=== PATIENT | male | born 1965 | race Caucasian/White ===

== ENCOUNTER 2017-11-12 11:47 | Inpatient (IN) | payer MEDICAID ==
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
[2017-11-12 13:13] LABS: ABS Basophils 0 10^3/ul (0-0.2); ABS Eosinophils 0.2 10^3/ul (0-0.6); ABS Lymphocytes 1.9 10^3/ul (1.0-4.8); ABS Monocytes 0.6 10^3/ul (0-0.8); ABS Neutrophils 3.5 10^3/ul (1.5-7.7); ABS Nucleated RBC 0 10^3/ul; Eosinophil % 3.7 % (0-6); Hematocrit 48 % (42-52); Hemoglobin 15.9 g/dl (14.0-18.0); Lymphocyte % 30.4 % (25-47); Mean Corpuscular HGB Conc 33 g/dl (31-36); Mean Corpuscular Hemoglobin 29 pg (27-31); Mean Corpuscular Volume 87 fL (80-94); Mean Platelet Volume 8.3 um3 (7.4-10.4); Nucleated Red Blood Cells % 0.1; Platelet Count 196 10^3/ul (150-450); Red Blood Count 5.53 10^6/ul (4.00-5.40); Red Cell Distribution Width 14 % (10.5-15); White Blood Count 6.2 10^3/ul (3.5-10.8)
[2017-11-12] MEDS ORDERED: Naloxone* 0.4 MG/ML 1 ML VIAL ONE (13:20)
[2017-11-12] MEDS ORDERED: Piperacillin/Tazobac ADVAN(*) 3.375 GM in NS 0.9% 100 ML* 100 ML IVPB ONE (13:25)
[2017-11-12] MEDS ORDERED: Piperacillin/Tazobac (*) 3.375 GM BAG ONE (13:26)
[2017-11-12] MEDS ORDERED: NS 0.9% 1000 ML* 1,000 ML IV ONE ×2 (13:26)
[2017-11-12] MEDS ORDERED: Naloxone* 0.4 MG/ML 1 ML VIAL IV PUSH ONE ×2 (13:26→13:30)
[2017-11-12 13:30] LABS: EGFR Non-African American 81.3 (>60)
[2017-11-12] MEDS ORDERED: Naloxone* 0.4 MG/ML 10 ML VIAL ONE (13:32)
[2017-11-12] MEDS ORDERED: Etomidate* 2 MG/ML 20 ML VIAL (40 MG) ONE (13:58)
[2017-11-12] MEDS ORDERED: Succinylcholine* 20 MG/ML 10 ML VIAL ONE (13:59)
[2017-11-12] MEDS ORDERED: Succinylcholine* 20 MG/ML 10 ML VIAL IV ONE (14:00)
[2017-11-12] MEDS ORDERED: Etomidate* 2 MG/ML 10 ML VIAL IV ONE (14:00)
[2017-11-12] MEDS ORDERED: Dextrose 50% Syringe 50 ML* 25 GM/50 ML SYRINGE IV PUSH PRN (14:14)
[2017-11-12] MEDS ORDERED: Propofol* 1,000 MG/100 ML BTL ONE (14:20)
--- NOTE | 2017-11-12 14:20 | RAD ---
HISTORY: AMS COMPARISONS: None TECHNIQUE: Multiple contiguous axial CT scans were obtained of the head without intravenous contrast. FINDINGS: HEMORRHAGE/INFARCT: There is no hemorrhage or acute infarct. MASSES/SHIFT: There is no mass or shift. EXTRA-AXIAL SPACES: There are no extra-axial fluid collections. SULCI AND VENTRICLES: The sulci and ventricles are normal in size and position for the patient's stated age. CEREBRUM: There are no focal parenchymal abnormalities. BRAINSTEM: There are no focal parenchymal abnormalities. CEREBELLUM: There are no focal parenchymal abnormalities. VESSELS: The vessels are grossly normal. PARANASAL SINUSES: The paranasal sinuses are clear. ORBITS: The orbits are unremarkable. BONES AND SOFT TISSUE: No bone or soft tissue abnormalities are noted. OTHER: None IMPRESSION: NO ACUTE INTRACRANIAL PATHOLOGY.
--- NOTE | 2017-11-12 14:22 | RAD ---
HISTORY: AMS COMPARISONS: None TECHNIQUE: Multiple contiguous axial CT scans were obtained of the cervical spine without intravenous contrast, with coronal and sagittal multiplanar reformations. FINDINGS: Evaluation is limited secondary to patient motion artifact. This limits evaluation for fractures of the cervical spine specifically at C4. BRAIN: The visualized brain is unremarkable CENTRAL CANAL: Evaluation of the central canal is limited on CT technique; however, there is no obvious canalicular mass or epidural hemorrhage. ALIGNMENT: The alignment is normal, without subluxation or dislocation. VERTEBRAL BODIES: There is no obvious displaced fracture, though evaluation is limited by patient motion, particularly at C4 . JOINTS: There is osteoarthritis of the vertebral facet joints. MUSCULATURE: Unremarkable INTERVERTEBRAL DISCS: There is diffuse loss of intervertebral disc height. AXIAL IMAGES: Evaluation is limited by motion. There is no significant neural foraminal narrowing or central canal stenosis SOFT TISSUES: The visualized soft tissues of the neck are unremarkable. The prevertebral fat stripe is preserved. OTHER: None. IMPRESSION: WHILE THERE IS NO OBVIOUS ACUTE OSSEOUS INJURY TO THE CERVICAL SPINE, EVALUATION IS LIMITED DUE TO PATIENT MOTION ARTIFACT PARTICULARLY LIMITING EVALUATION OF C4.
[2017-11-12] MEDS ORDERED: Albuterol/Ipratropium NEB.SOL* Albuterol 2.5 MG/Ipratropium 0.5 MG 3 ML INH ONE (14:23)
[2017-11-12] MEDS ORDERED: methylPREDNISolone 125 MG* 2 ML VIAL IV ONE (14:23)
--- OUTSIDE RECORDS SUMMARY | 2017-11-12 14:26 | XMS REPORT | Continuity of Care Document ---
:1965 Author Organization [facility] Care Team Providers Name Role Phone RM VILLALOBOS Primary Care Physician Allergies and Intolerances Code Code Allergy Type Reaction Severity Start End Status System Substance Date Date 15170409 RXNorm Glucophage Drug GI upset Unknown Active intolerence (disorder) Medications RxNorm Medication Dose Route Instructions Start End Status Date Date 3 ML Insulin 40 unit Subcutaneous subcutaneously Active Glargine 100 every morning UNT/ML Pen Injector 4895606 3 ML Insulin, unit Subcutaneous subcutaneously 3 Active Aspart, Human times per day as 100 UNT/ML Pen needed. Injector 658258 3 ML liraglutide 1.2 mg Subcutaneous subcutaneously Active 6 MG/ML Pen every morning Injector 7613889 Albuterol 0.833 3 mL Inhalation inhaled 4 times Active MG/ML / per day as needed. Ipratropium [place] 0.167 MG/ML Inhalant Solution 19720404 Alprazolam 2 MG 2 mg oral orally 3 times per Active Oral Tablet day as needed. 19720802 ammonium lactate 1 applic Topical topically every Active 120 MG/ML day as needed. Topical Lotion 1191 Aspirin 81 mg oral orally every day Active at bedtime 224223 atorvastatin 80 80 mg oral orally every day Active MG Oral Tablet at bedtime Budesonide 2 inh Inhalation inhaled 2 times Active per day Bupropion (SR) 150 mg oral orally 2 times per Active Oral ER Tab day 197598 clopidogrel 75 75 mg oral orally every day Active MG Oral Tablet 712637 Docusate Sodium 1 tab oral orally 2 times per Active 50 MG / day sennosides, CUSTODIAL 8.6 MG Oral Tablet 4053 Erythromycin 125 mg oral orally 4 times per Active day 4603 Furosemide 60 mg oral orally every Active morning 481375 glucagon (rDNA) 1 mg Intramuscular intramuscularly Active 1 MG Injection once as needed. 773241 Metoprolol 50 mg oral orally 2 times per Active Tartrate 50 MG day Oral Tablet 19790306 Naproxen 500 MG 500 mg oral orally 2 times per Active Oral Tablet day as needed. 4917 Nitroglycerin 0.4 mg Sublingual sublingually every Active 5 minutes as needed. 9553988 Oxycodone 10 mg oral orally every 4 Active Hydrochloride 10 hours as needed. MG Oral Tablet 8591 Potassium 20 mEq oral orally every Active Chloride morning ProAir HFA 2 inh Inhalation inhaled every 4 Active Inhaler 90 hours as needed. mcg/actuation Ranitidine Oral 150 mg oral orally 2 times per Active day as needed. 6355934 rivaroxaban 20 20 mg oral orally every Active MG Oral Tablet evening 094146 sildenafil 50 MG 50 mg oral orally every day Active Oral Tablet as needed. Spiriva Respimat 2 inh Inhalation inhaled every Active Inhaler 2.5 morning mcg/actuation Venlafaxine Oral 225 mg oral orally every Active 24 hr Cap morning Problems Code Code System Problem Name Start Date End Date Status 973101560 SNOMED-CT Acute exacerbation of 10/17/2017 Active chronic obstructive airways disease 16238656 SNOMED-CT Ocdap-eb-irbtxuw 06/16/2017 Active respiratory failure 77890697 SNOMED-CT Chronic obstructive lung 03/05/2017 Active disease 872851035 SNOMED-CT Acute exacerbation of 02/21/2017 Active chronic obstructive airways disease 86268200863946936 SNOMED-CT Acute on chronic hypoxemic 02/21/2017 Active respiratory failure 212762293 SNOMED-CT Nicotine dependence with 02/21/2017 Active current use 76388165 SNOMED-CT Khsma-qt-pyknlpo 11/30/2016 Active respiratory failure 34507518 SNOMED-CT Vwqfo-hu-rdcxocu 11/18/2016 Active respiratory failure 315781906 SNOMED-CT Community acquired 12/11/2015 Active pneumonia 949011502 SNOMED-CT Acute exacerbation of 12/11/2015 Active chronic obstructive airways disease 454385502 SNOMED-CT Acute interstitial 12/11/2015 Active pneumonia 97665889 SNOMED-CT Hyponatremia 12/11/2015 Active 86729767 SNOMED-CT Elevated liver function 12/11/2015 Active 365231195 SNOMED-CT Poorly controlled type 2 12/11/2015 Active DM 657450271 SNOMED-CT Morbid obesity 12/11/2015 Active 119950577 SNOMED-CT Acute exacerbation of 12/05/2015 Active chronic obstructive airways disease 028197022 SNOMED-CT Poorly controlled type 2 12/05/2015 Active DM 73119508 SNOMED-CT Hyponatremia 12/05/2015 Active 537007087 SNOMED-CT Neutrophilia 12/05/2015 Active 573873284 SNOMED-CT Morbid obesity 12/05/2015 Active 075274172 SNOMED-CT Acute exacerbation of 11/24/2015 Active chronic obstructive airways disease 320154045 SNOMED-CT Poorly controlled type 2 11/24/2015 Active DM 50107246 SNOMED-CT Axxdn-oi-laghsnc 11/24/2015 Active respiratory failure 030860737 SNOMED-CT Morbid obesity 11/24/2015 Active 67744257 SNOMED-CT Elevated liver function 04/18/2015 U Active 476610541 SNOMED-CT Morbid obesity 04/17/2015 U Active 893958900 SNOMED-CT Poorly controlled type 2 04/17/2015 U Active DM 434597474 SNOMED-CT Acute exacerbation of 04/17/2015 U Active chronic obstructive airways disease 74146831 SNOMED-CT Khbtx-rq-ctalghf 04/17/2015 U Active respiratory failure 686193931 SNOMED-CT Good hypertension control 04/17/2015 U Active 316581358 SNOMED-CT Tobacco dependence, 04/17/2015 U Active continuous 592830168 SNOMED-CT Acute exacerbation of 04/06/2015 U Active chronic obstructive airways disease 13548968 SNOMED-CT Ulohs-il-gxwmzxp 03/11/2015 U Active respiratory failure 57326066 SNOMED-CT Nicotine dependence 2016 Active EEG: prolonged and sleep 2016 Active deprived EEG done in the awake and drowsy states was normal. Clear epileptiform activity was not seen. 446404223 SNOMED-CT Acute exacerbation of 09/18/2014 U Active chronic obstructive airways disease 814494910 SNOMED-CT Dependent edema 09/18/2014 U Active 205513429 SNOMED-CT Right heart failure 09/18/2014 U Active 50873498 SNOMED-CT Chronic cor pulmonale 09/18/2014 U Active 40818276 SNOMED-CT Hyponatremia with excess 09/18/2014 U Active extracellular fluid volume 48737485 SNOMED-CT Hypokalemia 09/18/2014 U Active 648706658 SNOMED-CT Cellulitis of leg 09/18/2014 U Active 801838377 SNOMED-CT Right heart failure due to 09/18/2014 U Active pulmonary hypertension 775069591 SNOMED-CT Morbid obesity 09/18/2014 U Active 450833684 SNOMED-CT Acute exacerbation of 08/17/2014 U Active chronic obstructive airways disease 25046599 SNOMED-CT Upper respiratory 08/17/2014 U Active infection 35634299 SNOMED-CT Acute bronchitis with 08/17/2014 U Active bronchospasm 275229202 SNOMED-CT Cellulitis of leg 08/17/2014 U Active 479948047 SNOMED-CT Diabetic foot ulcer 08/17/2014 U Active 006024027 SNOMED-CT Cellulitis in diabetic 08/17/2014 U Active foot 459978222 SNOMED-CT Type II diabetes mellitus 08/17/2014 U Active well controlled 415968044 SNOMED-CT Moderate hypertension 08/17/2014 U Active control 408655025 SNOMED-CT Acute purulent bronchitis 08/17/2014 U Active 757880263 SNOMED-CT Weight increased 08/17/2014 U Active 812098426 SNOMED-CT Poorly controlled type 2 06/21/2014 U Active DM 019116582 SNOMED-CT Acute exacerbation of 06/21/2014 U Active chronic obstructive airways disease 259458951 SNOMED-CT Acute interstitial 06/21/2014 U Active pneumonia 97812283 SNOMED-CT Systolic hypertension 06/21/2014 U Active 169872003 SNOMED-CT Poor hypertension control 06/21/2014 U Active 028829953 SNOMED-CT Morbid obesity 06/21/2014 U Active 49772168 SNOMED-CT Chronic cor pulmonale 06/21/2014 U Active 78842089 SNOMED-CT Alteration in fluid 06/21/2014 U Active volume: excess 788991761 SNOMED-CT Acute exacerbation of 02/23/2014 U Active chronic obstructive airways disease 113799792 SNOMED-CT Acute exacerbation of 02/12/2014 U Active chronic obstructive airways disease 374026238 SNOMED-CT Acute exacerbation of 02/01/2014 U Active chronic obstructive airways disease Excision of epidermal 2013 U Completed inclusion cyst of scrotum by Dr. Hennessy 24712649 SNOMED-CT Acute bronchitis 08/13/2012 Active 04:00 abcess 04/22/2012 Active 05:00 58870033 SNOMED-CT Congestive heart failure 2007 Active (disorder) 10038684 SNOMED-CT Myocardial infarction 2007 Active 09472418 SNOMED-CT Chronic obstructive lung 2007 Active disease ABD HERNIA U Active 267060800 SNOMED-CT Gastroesophageal reflux U Active disease 45664221 SNOMED-CT Hypercholesterolemia U Active 30886877 SNOMED-CT Hypertensive disorder U U Active 09165058 SNOMED-CT Chronic obstructive lung U U Active disease 329731758 SNOMED-CT Morbid obesity U U Active 08997123 SNOMED-CT Hyperlipidemia U U Active 54992759 SNOMED-CT Heart disease U Active 82097406 SNOMED-CT Hypertensive disorder U Active 20598856 SNOMED-CT Diabetes mellitus U Active 39691712 SNOMED-CT Gastrointestinal ulcer U Active 28061597 SNOMED-CT Kidney stone U Active 62593303 SNOMED-CT Sleep apnea U Active 9683485 SNOMED-CT Arthritis U Active 350320112 SNOMED-CT Diabetic peripheral U Active neuropathy 42924736 SNOMED-CT Diabetes mellitus type 2 U U Active 29248410 SNOMED-CT Generalized anxiety U U Active disorder 657916309 SNOMED-CT Acute exacerbation of U U Active chronic obstructive airways disease 51583978 SNOMED-CT Nicotine dependence U U Active 511142526 SNOMED-CT Diabetic neuropathy U U Active 56427459 SNOMED-CT Chronic respiratory U U Active failure 470506438 SNOMED-CT AST/SGOT level abnormal U U Active 530293612 SNOMED-CT ALT (SGPT) level raised U U Active 87135791 SNOMED-CT Depressive disorder U U Active 28757314 SNOMED-CT Bipolar disorder U U Active 702963132 SNOMED-CT Severe chronic obstructive U Active pulmonary disease 30765224 SNOMED-CT Nicotine dependence U Active 487587489 SNOMED-CT Patient noncompliance - U Active general (situation) Procedures Code Code System Procedure Date SNOMED CT Cholecystectomy [address] Cholecystectomy U Results Laboratory Results Order: Point of Care Glucose ACCUCHECK Specimen Source: Blood Body Site: Legend: (G,H)=High, (GG,HH,CH,#H)=Above High Threshold, (#,L)=Low, (##,CL,#L,LL)=Below Low Threshold, (C,CC,CA,#A,A)=Abnormal LOINC Test Result Flag Range Units Date 1GLUCOSE BedSide 588 CH 70-100 mg/dL 10/18/2017 08:26 Test Comment: [id number] SULAIMAN RHONDA Performing Lab Footnotes:[facility] - [id number] [place] [address] RM [id number] Order: ACETONE SERUM Specimen Source: Body Site: Legend: (G,H)=High, ( GG,HH,CH,#H)=Above High Threshold, (#,L)=Low, (##,CL,#L,LL)=Below Low Threshold , (C,CC,CA,#A,A)=Abnormal LOINC Test Result Flag Range Units Date 2513-0 1Ketones SerPl Ql NEGATIVE NEGATIVE 10/18/2017 05:50 Performing Lab Footnotes:[facility] - [id number] [place] [address] RM PEOPLESOMD1 Order: BASIC METABOLIC PANEL Specimen Source: Body Site: Legend: (G,H)= High, (GG,HH,CH,#H)=Above High Threshold, (#,L)=Low, (##,CL,#L,LL)=Below Low Threshold, (C,CC,CA,#A,A)=Abnormal LOINC Test Result Flag Range Units Date 2951-2 1Sodium SerPl-sCnc 135 L 136-145 mmol/L 10/18/2017 05:50 2823-3 1Potassium SerPl-sCnc 4.4 3.5-5.2 mmol/L 10/18/2017 05:50 5-0 1Chloride SerPl-sCnc 96 L 100-108 mmol/L 10/18/2017 05:50 8-9 1CO2 SerPl-sCnc 30 21-32 mmol/L 10/18/2017 05:50 2345-7 1Glucose SerPl-mCnc 387 H 70-100 mg/dL 10/18/2017 05:50 3094-0 1BUN SerPl-mCnc 21 7-21 mg/dL 10/18/2017 05:50 2160-0 1Creat SerPl-mCnc 1.0 0.6-1.3 mg/dL 10/18/2017 05:50 Interpretive Megan: 1Normal Kidney Function or Mild Disease - GFR >OR=60 Chronic Kidney Disease - GFR 15-59 Renal Failure - GFR < 15 GFR not calculated on patients under 18 years of age. Calculated (estimated) GFR is based on the MDRD Study equation, which assumes a steady state for creatinine. Estimated GFR may not be appropriate for medication dosing. 47056-8 1Ca-I SerPl-mCnc 9.7 8.5-10.8 mg/dL 10/18/2017 05:50 66960-0 1GFR/BSA.pred SerPl-ArVRat >60 10/18/2017 05:50 Performing Lab Footnotes:[facility] - [id number] - [address] [place] [address] RM Rdz MERCY Order: CBC Specimen Source: Body Site: Legend: (G,H)=High, (GG,HH,CH,#H )=Above High Threshold, (#,L)=Low, (##,CL,#L,LL)=Below Low Threshold, (C,CC,CA,# A,A)=Abnormal LOINC Test Result Flag Range Units Date 90-2 1WBC # Bld Auto 12.7 H 4.8-10.8 K/uL 10/18/2017 05:50 60523-9 1RBC # Bld 5.63 4.60-6.20 M/uL 10/18/2017 05:50 718-7 1Hgb Bld-mCnc 16.1 13.5-18.0 gm/dL 10/18/2017 05:50 4544-3 1Hct VFr Bld Auto 49.7 41.0-53.0 % 10/18/2017 05:50 787-2 1MCV RBC Auto 88.2 80.0-100.0 fL 10/18/2017 05:50 15065-0 1MCHC RBC-mCnc 32.3 30.0-36.5 % 10/18/2017 05:50 03177-0 1MCH RBC Qn 28.5 27.0-34.0 pg 10/18/2017 05:50 18159-3 1RDW RBC 11.8 11.0-15.0 % 10/18/2017 05:50 777-3 1Platelet # Bld Auto 212 130-450 K/uL 10/18/2017 05:50 22441-5 1PMV Bld Auto 7.9 6.0-12.0 fL 10/18/2017 05:50 Performing Lab Footnotes:[facility] - [id number] - [address] [place] [address] NOEKendell MADRID Order: CBC DIFF Specimen Source: Body Site: Legend: (G,H)=High, (GG,HH, CH,#H)=Above High Threshold, (#,L)=Low, (##,CL,#L,LL)=Below Low Threshold, (C,CC ,CA,#A,A)=Abnormal LOINC Test Result Flag Range Units Date 6690-2 1WBC # Bld Auto 12.7 H 4.8-10.8 K/uL 10/18/2017 05:50 46070-6 1RBC # Bld 5.63 4.60-6.20 M/uL 10/18/2017 05:50 718-7 1Hgb Bld-mCnc 16.1 13.5-18.0 gm/dL 10/18/2017 05:50 4544-3 1Hct VFr Bld Auto 49.7 41.0-53.0 % 10/18/2017 05:50 787-2 1MCV RBC Auto 88.2 80.0-100.0 fL 10/18/2017 05:50 00653-8 1MCHC RBC-mCnc 32.3 30.0-36.5 % 10/18/2017 05:50 62717-8 1MCH RBC Qn 28.5 27.0-34.0 pg 10/18/2017 05:50 58218-2 1RDW RBC 11.8 11.0-15.0 % 10/18/2017 05:50 777-3 1Platelet # Bld Auto 212 130-450 K/uL 10/18/2017 05:50 40330-9 1PMV Bld Auto 7.9 6.0-12.0 fL 10/18/2017 05:50 751-8 1Neutrophils # Bld Auto 89 H 37-80 % 10/18/2017 05:50 67913-6 1Lymphocytes NFr Bld 9 L 10-50 % 10/18/2017 05:50 5905-5 1Monocytes NFr Bld Auto 2 0-12 % 10/18/2017 05:50 61896-2 1Eosinophil # Bld 0 <=8 % 10/18/2017 05:50 704-7 1Basophils # Bld Auto 0 <=3 % 10/18/2017 05:50 81569-5 1Neutrophils # Bld 11.3 H 1.8-8.6 K/uL 10/18/2017 05:50 731-0 1Lymphocytes # Bld Auto 1.1 0.5-5.0 K/uL 10/18/2017 05:50 742-7 1Monocytes # Bld Auto 0.3 0.0-1.3 K/uL 10/18/2017 05:50 94389-3 1Eosinophil # Bld 0.0 0.0-0.9 K/uL 10/18/2017 05:50 704-7 1Basophils # Bld Auto 0.0 0.0-0.3 K/ul 10/18/2017 05:50 Performing Lab Footnotes:[facility] - [id number] - [address] [place] [address] RM BERNARDOD1 Order: COMPREHENSIVE PANEL Specimen Source: Body Site: Legend: (G,H)= High, (GG,HH,CH,#H)=Above High Threshold, (#,L)=Low, (##,CL,#L,LL)=Below Low Threshold, (C,CC,CA,#A,A)=Abnormal LOINC Test Result Flag Range Units Date 2951-2 1Sodium SerPl-sCnc 135 L 136-145 mmol/L 10/18/2017 05:50 2823-3 1Potassium SerPl-sCnc 4.4 3.5-5.2 mmol/L 10/18/2017 05:50 2075-0 1Chloride SerPl-sCnc 96 L 100-108 mmol/L 10/18/2017 05:50 8-9 1CO2 SerPl-sCnc 30 21-32 mmol/L 10/18/2017 05:50 2345-7 1Glucose SerPl-mCnc 387 H 70-100 mg/dL 10/18/2017 05:50 3094-0 1BUN SerPl-mCnc 21 7-21 mg/dL 10/18/2017 05:50 2160-0 1Creat SerPl-mCnc 1.0 0.6-1.3 mg/dL 10/18/2017 05:50 Interpretive Megan: 1Normal Kidney Function or Mild Disease - GFR >OR=60 Chronic Kidney Disease - GFR 15-59 Renal Failure - GFR < 15 GFR not calculated on patients under 18 years of age. Calculated (estimated) GFR is based on the MDRD Study equation, which assumes a steady state for creatinine. Estimated GFR may not be appropriate for medication dosing. 59558-0 1Ca-I SerPl-mCnc 9.7 8.5-10.8 mg/dL 10/18/2017 05:50 62744-1 1GFR/BSA.pred SerPl-ArVRat >60 10/18/2017 05:50 78231-4 1Bilirub Bld-mCnc 0.3 0.0-1.2 mg/dL 10/18/2017 05:50 2885-2 1Prot SerPl-mCnc 7.1 6.4-8.2 gm/dL 10/18/2017 05:50 1751-7 1Albumin SerPl-mCnc 3.9 3.4-4.8 gm/dL 10/18/2017 05:50 6768-6 1ALP SerPl-cCnc 98 40-150 U/L 10/18/2017 05:50 1742-6 1ALT SerPl-cCnc 118 H 0-55 U/L 10/18/2017 05:50 1920-8 1AST SerPl-cCnc 26 5-37 U/L 10/18/2017 05:50 Performing Lab Footnotes:[facility] - [id number] - [address] [place] [address] NOEKendell MADRID Order: PT/INR Specimen Source: Body Site: Legend: (G,H)=High, (GG,HH,CH ,#H)=Above High Threshold, (#,L)=Low, (##,CL,#L,LL)=Below Low Threshold, (C,CC, CA,#A,A)=Abnormal LOINC Test Result Flag Range Units Date 5901-04 1PT Time PPP 12.9 H 9.4-12.4 sec 10/18/2017 05:50 6301-6 1INR PPP 1.1 10/18/2017 05:50 Interpretive Megan: 1 INR INTERPERTATION 2.0-3.0 THERAPEUTIC MONITORING 2.5-3.5 HEART VALVE REPLACEMENT Performing Lab Footnotes:[facility] - [id number] - [address] [place] [address] RM BERNARDOD1 Order: Point of Care Glucose ACCUCHECK Specimen Source: Blood Body Site: Legend: (G,H)=High, (GG,HH,CH,#H)=Above High Threshold, (#,L)=Low, (##,CL, #L,LL)=Below Low Threshold, (C,CC,CA,#A,A)=Abnormal LOINC Test Result Flag Range Units Date 1GLUCOSE BedSide 410 CH 70-100 mg/dL 10/17/2017 20:08 Test Comment: [id number] KEVIN FRANCIS Test Comment: 1Cleaned Meter Performing Lab Footnotes:[facility] - [id number] - [address] [place] [address] RM MADRID Order: Point of Care Glucose ACCUCHECK Specimen Source: Blood Body Site: Legend: (G,H)=High, (GG,HH,CH,#H)=Above High Threshold, (#,L)=Low, (##,CL, #L,LL)=Below Low Threshold, (C,CC,CA,#A,A)=Abnormal LOINC Test Result Flag Range Units Date 1GLUCOSE BedSide 393 CH 70-100 mg/dL 10/17/2017 16:00 Test Comment: [id number] KEVIN PENNY Performing Lab Footnotes:[facility] - [id number] - [address] [place] [address] RM PEOPLESOMD1 Order: TROPONIN I Specimen Source: Body Site: Legend: (G,H)=High, (GG, HH,CH,#H)=Above High Threshold, (#,L)=Low, (##,CL,#L,LL)=Below Low Threshold, (C ,CC,CA,#A,A)=Abnormal LOINC Test Result Flag Range Units Date 39740-2 1Troponin I SerPl-mCnc 0.00 0.00-0.04 ng/mL 10/17/2017 13:40 Interpretive Megan: 1 TROPONIN INTERPRETATION 0.00 - 0.04 ng/ml Normal 0.05 - 0.29 ng/ml [place]rade Zone, Uncertain for AMI Greater than 0.30 ng/ml Suggestive of AMI Performing Lab Footnotes:[facility] - [id number] [place] [address] RM Rdz [id number] Order: Point of Care Glucose ACCUCHECK Specimen Source: Blood Body Site: Legend: (G,H)=High, (GG,HH,CH,#H)=Above High Threshold, (#,L)=Low, (##,CL, #L,LL)=Below Low Threshold, (C,CC,CA,#A,A)=Abnormal LOINC Test Result Flag Range Units Date 1GLUCOSE BedSide 510 CH 70-100 mg/dL 10/17/2017 13:29 Test Comment: [id number] ASHELY THOMAS Test Comment: 1Cleaned Meter Test Comment: 1RN Notified Performing Lab Footnotes:[facility] - [id number] - [address] [place] [address] RM [id number] Order: Point of Care Glucose ACCUCHECK Specimen Source: Blood Body Site: Legend: (G,H)=High, (GG,HH,CH,#H)=Above High Threshold, (#,L)=Low, (##,CL, #L,LL)=Below Low Threshold, (C,CC,CA,#A,A)=Abnormal LOINC Test Result Flag Range Units Date 1GLUCOSE BedSide 508 CH 70-100 mg/dL 10/17/2017 11:40 Test Comment: 1816 SULAIMAN ELLIS Performing Lab Footnotes:[facility] - [id number] - [address] [place] [address] RM [id number] Order: TROPONIN I Specimen Source: Body Site: Legend: (G,H)=High, (GG, HH,CH,#H)=Above High Threshold, (#,L)=Low, (##,CL,#L,LL)=Below Low Threshold, (C ,CC,CA,#A,A)=Abnormal LOINC Test Result Flag Range Units Date 58725-2 1Troponin I SerPl-mCnc 0.00 0.00-0.04 ng/mL 10/17/2017 08:35 Interpretive Megan: 1 TROPONIN INTERPRETATION 0.00 - 0.04 ng/ml Normal 0.05 - 0.29 ng/ml Andrade Zone, Uncertain for AMI Greater than 0.30 ng/ml Suggestive of AMI Performing Lab Footnotes:[facility] - [id number] - [address] [place] [address] RM MADRID Order: Point of Care Glucose ACCUCHECK Specimen Source: Blood Body Site: Legend: (G,H)=High, (GG,HH,CH,#H)=Above High Threshold, (#,L)=Low, (##,CL, #L,LL)=Below Low Threshold, (C,CC,CA,#A,A)=Abnormal LOINC Test Result Flag Range Units Date 1GLUCOSE BedSide 395 CH 70-100 mg/dL 10/17/2017 08:18 Test Comment: 1816 SULAIMAN ELLIS Test Comment: 1Cleaned Meter Test Comment: 1RN Notified Performing Lab Footnotes:[facility] - [id number] - [address] [place] [address] RM MADRID Order: Point of Care Glucose ACCUCHECK Specimen Source: Blood Body Site: Legend: (G,H)=High, (GG,HH,CH,#H)=Above High Threshold, (#,L)=Low, (##,CL, #L,LL)=Below Low Threshold, (C,CC,CA,#A,A)=Abnormal LOINC Test Result Flag Range Units Date 1GLUCOSE BedSide 294 H 70-100 mg/dL 10/17/2017 04:12 Test Comment: [id number] RICKEY SHEN Test Comment: 1Result Not Confirmed Performing Lab Footnotes:[facility] - [id number] [place] [address] RM MADRID Order: B-TYPE NATRIURETIC PEPTID Specimen Source: Body Site: Legend: (G ,H)=High, (GG,HH,CH,#H)=Above High Threshold, (#,L)=Low, (##,CL,#L,LL)=Below Low Threshold, (C,CC,CA,#A,A)=Abnormal LOINC Test Result Flag Range Units Date 51648-7 1BNP SerPl-mCnc 12 0-100 pg/mL 10/17/2017 02:30 Performing Lab Footnotes:[facility] - [id number] - [address] [place] [address] RM MADRID Order: CBC DIFF Specimen Source: Body Site: Legend: (G,H)=High, (GG,HH, CH,#H)=Above High Threshold, (#,L)=Low, (##,CL,#L,LL)=Below Low Threshold, (C,CC ,CA,#A,A)=Abnormal LOINC Test Result Flag Range Units Date 6690-2 1WBC # Bld Auto 7.1 4.8-10.8 K/uL 10/17/2017 02:30 91532-5 1RBC # Bld 5.70 4.60-6.20 M/uL 10/17/2017 02:30 718-7 1Hgb Bld-mCnc 16.9 13.5-18.0 gm/dL 10/17/2017 02:30 4544-3 1Hct VFr Bld Auto 50.3 41.0-53.0 % 10/17/2017 02:30 787-2 1MCV RBC Auto 88.3 80.0-100.0 fL 10/17/2017 02:30 27108-4 1MCHC RBC-mCnc 33.5 30.0-36.5 % 10/17/2017 02:30 28332-9 1MCH RBC Qn 29.6 27.0-34.0 pg 10/17/2017 02:30 68287-4 1RDW RBC 11.9 11.0-15.0 % 10/17/2017 02:30 777-3 1Platelet # Bld Auto 196 130-450 K/uL 10/17/2017 02:30 78565-0 1PMV Bld Auto 7.7 6.0-12.0 fL 10/17/2017 02:30 751-8 1Neutrophils # Bld Auto 56 37-80 % 10/17/2017 02:30 75996-9 1Lymphocytes NFr Bld 32 10-50 % 10/17/2017 02:30 5905-5 1Monocytes NFr Bld Auto 8 0-12 % 10/17/2017 02:30 57116-4 1Eosinophil # Bld 2 <=8 % 10/17/2017 02:30 704-7 1Basophils # Bld Auto 1 <=3 % 10/17/2017 02:30 85080-8 1Neutrophils # Bld 4.0 1.8-8.6 K/uL 10/17/2017 02:30 731-0 1Lymphocytes # Bld Auto 2.3 0.5-5.0 K/uL 10/17/2017 02:30 742-7 1Monocytes # Bld Auto 0.6 0.0-1.3 K/uL 10/17/2017 02:30 00588-9 1Eosinophil # Bld 0.1 0.0-0.9 K/uL 10/17/2017 02:30 704-7 1Basophils # Bld Auto 0.1 0.0-0.3 K/ul 10/17/2017 02:30 Performing Lab Footnotes:[facility] - [id number] [place] [address] RM MADRID Order: CK Specimen Source: Body Site: Legend: (G,H)=High, (GG,HH,CH,#H) =Above High Threshold, (#,L)=Low, (##,CL,#L,LL)=Below Low Threshold, (C,CC,CA,#A ,A)=Abnormal LOINC Test Result Flag Range Units Date 2156-08 1CK [facility] 129 21-232 U/L 10/17/2017 02:30 Performing Lab Footnotes:[facility] - [id number] - [address] [place] [address] RM MADRID Order: COMPREHENSIVE PANEL Specimen Source: Body Site: Legend: (G,H)= High, (GG,HH,CH,#H)=Above High Threshold, (#,L)=Low, (##,CL,#L,LL)=Below Low Threshold, (C,CC,CA,#A,A)=Abnormal LOINC Test Result Flag Range Units Date 2951-2 1Sodium SerPl-sCnc 140 136-145 mmol/L 10/17/2017 02:30 2823-3 1Potassium SerPl-sCnc 4.0 3.5-5.2 mmol/L 10/17/2017 02:30 2075-0 1Chloride SerPl-sCnc 98 L 100-108 mmol/L 10/17/2017 02:30 8-9 1CO2 SerPl-sCnc 31 21-32 mmol/L 10/17/2017 02:30 2345-7 1Glucose SerPl-mCnc 311 H 70-100 mg/dL 10/17/2017 02:30 3094-0 1BUN SerPl-mCnc 9 7-21 mg/dL 10/17/2017 02:30 2160-0 1Creat SerPl-mCnc 0.9 0.6-1.3 mg/dL 10/17/2017 02:30 Interpretive Megan: 1Normal Kidney Function or Mild Disease - GFR >OR=60 Chronic Kidney Disease - GFR 15-59 Renal Failure - GFR < 15 GFR not calculated on patients under 18 years of age. Calculated (estimated) GFR is based on the MDRD Study equation, which assumes a steady state for creatinine. Estimated GFR may not be appropriate for medication dosing. 18114-1 1Ca-I SerPl-mCnc 9.8 8.5-10.8 mg/dL 10/17/2017 02:30 14670-8 1GFR/BSA.pred SerPl-ArVRat >60 10/17/2017 02:30 64856-7 1Bilirub Bld-mCnc 0.4 0.0-1.2 mg/dL 10/17/2017 02:30 2885-2 1Prot SerPl-mCnc 7.7 6.4-8.2 gm/dL 10/17/2017 02:30 1751-7 1Albumin SerPl-mCnc 4.3 3.4-4.8 gm/dL 10/17/2017 02:30 6768-6 1ALP SerPl-cCnc 108 40-150 U/L 10/17/2017 02:30 1742-6 1ALT SerPl-cCnc 162 H 0-55 U/L 10/17/2017 02:30 1920-8 1AST SerPl-cCnc 59 H 5-37 U/L 10/17/2017 02:30 Performing Lab Footnotes:[facility] - [id number] - [address] [place] [address] RM MADRID Order: PT/INR Specimen Source: Body Site: Legend: (G,H)=High, (GG,HH,CH ,#H)=Above High Threshold, (#,L)=Low, (##,CL,#L,LL)=Below Low Threshold, (C,CC, CA,#A,A)=Abnormal LOINC Test Result Flag Range Units Date 5901-04 1PT Time PPP 11.2 9.4-12.4 sec 10/17/2017 02:30 6301-6 1INR PPP 1.0 10/17/2017 02:30 Interpretive Megan: 1 INR INTERPERTATION 2.0-3.0 THERAPEUTIC MONITORING 2.5-3.5 HEART VALVE REPLACEMENT Performing Lab Footnotes:[facility] - [id number] - [address] [place] [id number] [address] [id number] Order: TROPONIN I Specimen Source: Body Site: Legend: (G,H)=High, (GG, HH,CH,#H)=Above High Threshold, (#,L)=Low, (##,CL,#L,LL)=Below Low Threshold, (C ,CC,CA,#A,A)=Abnormal LOINC Test Result Flag Range Units Date 41996-8 1Troponin I SerPl-mCnc 0.00 0.00-0.04 ng/mL 10/17/2017 02:30 Interpretive Megan: 1 TROPONIN INTERPRETATION 0.00 - 0.04 ng/ml Normal 0.05 - 0.29 ng/ml Andrade Zone, Uncertain for AMI Greater than 0.30 ng/ml Suggestive of AMI Performing Lab Footnotes:[facility] - [id number] - [address] [place] [address] RM [id number] Order: Point of Care Glucose ACCUCHECK Specimen Source: Blood Body Site: Legend: (G,H)=High, (GG,HH,CH,#H)=Above High Threshold, (#,L)=Low, (##,CL, #L,LL)=Below Low Threshold, (C,CC,CA,#A,A)=Abnormal LOINC Test Result Flag Range Units Date 1GLUCOSE BedSide 284 H 70-100 mg/dL 10/17/2017 01:40 Test Comment: [id number] LYNDA BRANDT Test Comment: 1Cleaned Meter Test Comment: 1RN Notified Performing Lab Footnotes:[facility] - [id number] - [address] [place] [address] RM [id number] Radiology Results Order: CHEST PORTABLE-SINGLEExam Completion Date:10/17/2017 01: 1:53 AM CHEST PORTABLE-SINGLE ORDERING CLINICAL INFORMATION: -- SHORTNESS OF BREATH provided from eRecord without change. ADDITIONAL CLINICAL INFORMATION OBTAINED FROM EMR: None. COMPARISON: 10/15/2017 FINDINGS: Tubes and Catheters: None. Central Airways: Normal. Lungs: Normal. Pleura/Pleural space: Normal. Heart and Mediastinum: Normal. Bones and soft tissues:No acute or aggressive changes noted. IMPRESSION: No acute cardiopulmonary disease. END REPORT Electronically signed By: Flaquito Garcia M.D. Read By: FLAQUITO GARCIA Date: 10/17/2017 06:23 Social History Code Code System Social History Description Dates Observed Observation 164621721 SNOMED CT Current Smoking Current every day Status smoker M AdministrativeGender Sex Assigned At Male Vital Signs Code Code System Vitals Value Date 8310-5 LOINC Body Temperature 98 [degF] 10/18/2017 8865-8 LOINC Pulse Rate 69 {beats}/min 10/18/2017 9279-1 LOINC Respiratory Rate 22 /min 10/18/2017 75102-1 LOINC O2% BldC Oximetry 92 % 10/18/2017 8480-6 LOINC BP Systolic 132 mm[Hg] 10/18/2017 8462-4 LOINC BP Diastolic 68 mm[Hg] 10/18/2017 8302-2 LOINC Height 74 [in_i] 10/17/2017 08307-5 LOINC Weight 163.29 kg 10/17/2017 3140-1 LOINC Body surface area Derived from formula 2.79 m2 10/17/2017 47877-2 LOINC BMI (Body Mass Index) 46.6 kg/m2 10/17/2017 Goals Section No data in the system Health Concerns No data in the systemEncounter Diagnosis Date Code Code System Diagnosis Status 845029854 SNOMED-CT COPD WITH ACUTE EXACERBATION Active Advance Directives HEALTH CARE PROXY Directive Type Effective Date Drafting Engineer Notes Supporting Document Name Address Phone No Directive 10/17/2017 Not Not Not mojgan wardrup No Type 6:30:00 AM Specified Specified Specified (sister)[phone] specified DO NOT RESUSCITATE Directive Type Effective Date Drafting Engineer Notes Supporting Document Name Address Phone No Directive Type 10/17/2017 6:30:00 Not Specified Not Specified Not Specified None Yes specified AM DO NOT INTUBATE Directive Type Effective Date Drafting Engineer Notes Supporting Document Name Address Phone No Directive Type 10/17/2017 6:30:00 Not Specified Not Specified Not Specified None Yes specified AM *RHIO - CONSENT IS YES Directive Type Effective Date Drafting Engineer Notes Supporting Document Name Address Phone No Directive Type 08/17/2016 5:00:00 Not Specified Not Specified Not Specified None Yes specified AM Family History Relationship: Father Health Problem Age At Onset Notes Acute CHF (Acute congestive heart failure) 81 Years Relationship: Mother Health Problem Age At Onset Notes COPD (Chronic obstructive lung disease) (Chronic obstructive lung 70 Years disease) Diabetes (Diabetes mellitus) (Diabetes mellitus) 70 Years Heart disease 70 Years Functional Status Code Functional Condition Code System Date Status Independent adls SNOMED CT 10/17/2017 Active Appears well nourished/hydrated SNOMED CT 10/17/2017 Active Self care SNOMED CT 10/17/[address] 10/17/[address] 10/18/2017 Active Needs further teaching SNOMED CT 10/18/2017 Active Verbalizes understanding SNOMED CT 10/18/2017 Active 3 - encourage and assist as needed in SNOMED CT 10/17/2017 Active repositioning 4 - manage pain and encourage activity as SNOMED CT 10/18/2017 Active tolerated Needs assistance SNOMED CT 10/18/[address] feed SNOMED CT 10/18/2017 Active Assist with set up SNOMED CT 10/18/[address] 10/18/2017 Active 597008166 Able to wash self SNOMED CT 10/18/2017 Active 257270488 Difficulty washing self SNOMED CT 10/18/2017 Active Immunizations Vaccine Code Code System Vaccine Name Date Status 109 CVX pneumococcal vaccine, NOS Completed FLU SHOT 11/01/2014 Completed 150 CVX Influenza, injectable, 12/14/2015 Not given (patient quadrivalent, preservative objection) free 33 CVX pneumococcal polysaccharide 11/19/2016 Not given (Parental vaccine Objection) 150 CVX Influenza, injectable, 11/19/2016 Not given (patient quadrivalent, preservative objection) free INFLUENZA VACC QUAD 2017-18 04/27/2017 Not given (Medication (3YO+) Discontinued) Medical Equipment No data in the system Mental Status Code Cognitive Condition Code System Date Status Oriented x [address] 10/17/2017 Active Mild distress SNOMED CT 10/17/[address] 10/17/[address] 10/17/[address] 10/18/2017 Active 689159123 Orientated SNOMED CT 10/18/2017 Active 597142241 Mentally alert SNOMED CT 10/18/2017 Active 126070726 Oriented to time SNOMED CT 10/18/2017 Active 381620339 Oriented to time (finding) SNOMED CT 10/18/2017 [address] to [address] SNOMED CT 10/18/2017 Active [address] Oriented to place (finding) SNOMED CT 10/18/2017 Active 665511047 [facility] Active Assessment and Plan Assessments Problem Assessment Acute exacerbation of chronic obstructive airways disease Nicotine dependence Patient noncompliance - general (situation) Plan Of Treatment No data in the systemPending Tests Test Start Date Point of Care URINE DIPSTICK 10/17/2017 Hospital Discharge Instructions No data in the system Reason for Visit Reason for Visit COPD
--- OUTSIDE RECORDS SUMMARY | 2017-11-12 14:26 | XMS REPORT | Continuity of Care Document ---
:1965 Author Organization [facility] Care Team Providers Name Role Phone RM VILLALOBOS Primary Care Physician Allergies and Intolerances Code Code Allergy Type Reaction Severity Start End Status System Substance Date Date 15170409 RXNorm Glucophage Drug GI upset Unknown Active intolerence (disorder) Medications RxNorm Medication Dose Route Instructions Start End Status Date Date 3 ML Insulin 40 unit Subcutaneous subcutaneously Active Glargine 100 every morning UNT/ML Pen Injector 7609216 3 ML Insulin, unit Subcutaneous subcutaneously 3 Active Aspart, Human times per day as 100 UNT/ML Pen needed. Injector 631508 3 ML liraglutide 1.2 mg Subcutaneous subcutaneously Active 6 MG/ML Pen every morning Injector 1555780 Albuterol 0.833 3 mL Inhalation inhaled 4 times Active MG/ML / per day as needed. Ipratropium Lyman 0.167 MG/ML Inhalant Solution 19720404 Alprazolam 2 MG 2 mg oral orally 3 times per Active Oral Tablet day as needed. 19720802 ammonium lactate 1 applic Topical topically every Active 120 MG/ML day as needed. Topical Lotion 1191 Aspirin 81 mg oral orally every day Active at bedtime 470066 atorvastatin 80 80 mg oral orally every day Active MG Oral Tablet at bedtime Budesonide 2 inh Inhalation inhaled 2 times Active per day Bupropion (SR) 150 mg oral orally 2 times per Active Oral ER Tab day 958264 clopidogrel 75 75 mg oral orally every day Active MG Oral Tablet 966624 Docusate Sodium 1 tab oral orally 2 times per Active 50 MG / day sennosides, LONG TERM 8.6 MG Oral Tablet 4053 Erythromycin 125 mg oral orally 4 times per Active day 4603 Furosemide 60 mg oral orally every Active morning 433107 glucagon (rDNA) 1 mg Intramuscular intramuscularly Active 1 MG Injection once as needed. 641635 Metoprolol 50 mg oral orally 2 times per Active Tartrate 50 MG day Oral Tablet 19790306 Naproxen 500 MG 500 mg oral orally 2 times per Active Oral Tablet day as needed. 4917 Nitroglycerin 0.4 mg Sublingual sublingually every Active 5 minutes as needed. 9775973 Oxycodone 10 mg oral orally every 4 Active Hydrochloride 10 hours as needed. MG Oral Tablet 8591 Potassium 20 mEq oral orally every Active Chloride morning ProAir HFA 2 inh Inhalation inhaled every 4 Active Inhaler 90 hours as needed. mcg/actuation Ranitidine Oral 150 mg oral orally 2 times per Active day as needed. 8716430 rivaroxaban 20 20 mg oral orally every Active MG Oral Tablet evening 525779 sildenafil 50 MG 50 mg oral orally every day Active Oral Tablet as needed. Spiriva Respimat 2 inh Inhalation inhaled every Active Inhaler 2.5 morning mcg/actuation Venlafaxine Oral 225 mg oral orally every Active 24 hr Cap morning Problems Code Code System Problem Name Start Date End Date Status 028833054 SNOMED-CT Acute exacerbation of 10/17/2017 Active chronic obstructive airways disease 68334111 SNOMED-CT Dzzqk-dj-wvxljcl 06/16/2017 Active respiratory failure 37084332 SNOMED-CT Chronic obstructive lung 03/05/2017 Active disease 942313815 SNOMED-CT Acute exacerbation of 02/21/2017 Active chronic obstructive airways disease 55997289241945453 SNOMED-CT Acute on chronic hypoxemic 02/21/2017 Active respiratory failure 133191258 SNOMED-CT Nicotine dependence with 02/21/2017 Active current use 91901879 SNOMED-CT Botdm-nw-jjvpsok 11/30/2016 Active respiratory failure 89668274 SNOMED-CT [place]uf[place]-ck-fmqdljt 11/18/2016 Active respiratory failure 305742405 SNOMED-CT Community acquired 12/11/2015 Active pneumonia 239532571 SNOMED-CT Acute exacerbation of 12/11/2015 Active chronic obstructive airways disease 605807902 SNOMED-CT Acute interstitial 12/11/2015 Active pneumonia 93530989 SNOMED-CT Hyponatremia 12/11/2015 Active 97806869 SNOMED-CT Elevated liver function 12/11/2015 Active 337317770 SNOMED-CT Poorly controlled type 2 12/11/2015 Active DM 071905216 SNOMED-CT Morbid obesity 12/11/2015 Active 634111476 SNOMED-CT Acute exacerbation of 12/05/2015 Active chronic obstructive airways disease 981886088 SNOMED-CT Poorly controlled type 2 12/05/2015 Active DM 58942441 SNOMED-CT Hyponatremia 12/05/2015 Active 917057176 SNOMED-CT Neutrophilia 12/05/2015 Active 837291673 SNOMED-CT Morbid obesity 12/05/2015 Active 816130907 SNOMED-CT Acute exacerbation of 11/24/2015 Active chronic obstructive airways disease 000775759 SNOMED-CT Poorly controlled type 2 11/24/2015 Active DM 63938179 SNOMED-CT Klehp-ch-ygqiaqt 11/24/2015 Active respiratory failure 821410633 SNOMED-CT Morbid obesity 11/24/2015 Active 37493243 SNOMED-CT Elevated liver function 04/18/2015 U Active 952234939 SNOMED-CT Morbid obesity 04/17/2015 U Active 995047765 SNOMED-CT Poorly controlled type 2 04/17/2015 U Active DM 497353945 SNOMED-CT Acute exacerbation of 04/17/2015 U Active chronic obstructive airways disease 23125356 SNOMED-CT Odmnu-by-ydzbrga 04/17/2015 U Active respiratory failure 473253464 SNOMED-CT Good hypertension control 04/17/2015 U Active 663766666 SNOMED-CT Tobacco dependence, 04/17/2015 U Active continuous 738639669 SNOMED-CT Acute exacerbation of 04/06/2015 U Active chronic obstructive airways disease 38546627 SNOMED-CT Rgjkw-zw-flawtvy 03/11/2015 U Active respiratory failure 33696304 SNOMED-CT Nicotine dependence 2016 Active EEG: prolonged and sleep 2016 Active deprived EEG done in the awake and drowsy states was normal. Clear epileptiform activity was not seen. 758959130 SNOMED-CT Acute exacerbation of 09/18/2014 U Active chronic obstructive airways disease 546666463 SNOMED-CT Dependent edema 09/18/2014 U Active 804742898 SNOMED-CT Right heart failure 09/18/2014 U Active 41938992 SNOMED-CT Chronic cor pulmonale 09/18/2014 U Active 55817211 SNOMED-CT Hyponatremia with excess 09/18/2014 U Active extracellular fluid volume 14910764 SNOMED-CT Hypokalemia 09/18/2014 U Active 914308046 SNOMED-CT Cellulitis of leg 09/18/2014 U Active 049907135 SNOMED-CT Right heart failure due to 09/18/2014 U Active pulmonary hypertension 820935832 SNOMED-CT Morbid obesity 09/18/2014 U Active 747170711 SNOMED-CT Acute exacerbation of 08/17/2014 U Active chronic obstructive airways disease 10255967 SNOMED-CT Upper respiratory 08/17/2014 U Active infection 19247279 SNOMED-CT Acute bronchitis with 08/17/2014 U Active bronchospasm 720526316 SNOMED-CT Cellulitis of leg 08/17/2014 U Active 025961013 SNOMED-CT Diabetic foot ulcer 08/17/2014 U Active 361794527 SNOMED-CT Cellulitis in diabetic 08/17/2014 U Active foot 026838375 SNOMED-CT Type II diabetes mellitus 08/17/2014 U Active well controlled 398379683 SNOMED-CT Moderate hypertension 08/17/2014 U Active control 992763984 SNOMED-CT Acute purulent bronchitis 08/17/2014 U Active 394667422 SNOMED-CT Weight increased 08/17/2014 U Active 118050739 SNOMED-CT Poorly controlled type 2 06/21/2014 U Active DM 714521846 SNOMED-CT Acute exacerbation of 06/21/2014 U Active chronic obstructive airways disease 973655866 SNOMED-CT Acute interstitial 06/21/2014 U Active pneumonia 67908228 SNOMED-CT Systolic hypertension 06/21/2014 U Active 131379574 SNOMED-CT Poor hypertension control 06/21/2014 U Active 408966984 SNOMED-CT Morbid obesity 06/21/2014 U Active 90731272 SNOMED-CT Chronic cor pulmonale 06/21/2014 U Active 66732271 SNOMED-CT Alteration in fluid 06/21/2014 U Active volume: excess 509055548 SNOMED-CT Acute exacerbation of 02/23/2014 U Active chronic obstructive airways disease 565501175 SNOMED-CT Acute exacerbation of 02/12/2014 U Active chronic obstructive airways disease 804808499 SNOMED-CT Acute exacerbation of 02/01/2014 U Active chronic obstructive airways disease Excision of epidermal 2013 U Completed inclusion cyst of scrotum by Dr. Hennessy 10441364 SNOMED-CT Acute bronchitis 08/13/2012 Active 04:00 abcess 04/22/2012 Active 05:00 95313720 SNOMED-CT Congestive heart failure 2007 Active (disorder) 91421614 SNOMED-CT Myocardial infarction 2007 Active 00929766 SNOMED-CT Chronic obstructive lung 2007 Active disease ABD HERNIA U Active 172056641 SNOMED-CT Gastroesophageal reflux U Active disease 90092642 SNOMED-CT Hypercholesterolemia U Active 06090589 SNOMED-CT Hypertensive disorder U U Active 68342824 SNOMED-CT Chronic obstructive lung U U Active disease 667749488 SNOMED-CT Morbid obesity U U Active 85902426 SNOMED-CT Hyperlipidemia U U Active 76570834 SNOMED-CT Heart disease U Active 45123776 SNOMED-CT Hypertensive disorder U Active 90803083 SNOMED-CT Diabetes mellitus U Active 13166116 SNOMED-CT Gastrointestinal ulcer U Active 86102503 SNOMED-CT Kidney stone U Active 83456879 SNOMED-CT Sleep apnea U Active 3457185 SNOMED-CT Arthritis U Active 125365877 SNOMED-CT Diabetic peripheral U Active neuropathy 82992892 SNOMED-CT Diabetes mellitus type 2 U U Active 09852258 SNOMED-CT Generalized anxiety U U Active disorder 997727112 SNOMED-CT Acute exacerbation of U U Active chronic obstructive airways disease 28457145 SNOMED-CT Nicotine dependence U U Active 679542280 SNOMED-CT Diabetic neuropathy U U Active 94616779 SNOMED-CT Chronic respiratory U U Active failure 746799554 SNOMED-CT AST/SGOT level abnormal U U Active 877345795 SNOMED-CT ALT (SGPT) level raised U U Active 36169236 SNOMED-CT Depressive disorder U U Active 83381003 SNOMED-CT Bipolar disorder U U Active 883757372 SNOMED-CT Severe chronic obstructive U Active pulmonary disease 39675519 SNOMED-CT Nicotine dependence U Active 260921111 SNOMED-CT Patient noncompliance - U Active general (situation) Procedures Code Code System Procedure Date SNOMED CT Cholecystectomy [address] Cholecystectomy U Results Laboratory Results Order: B-TYPE NATRIURETIC PEPTID Specimen Source: Body Site: Legend: (G,H)=High, (GG,HH,CH,#H)=Above High Threshold, (#,L) =Low, (##,CL,#L,LL)=Below Low Threshold, (C,CC,CA,#A,A)=Abnormal LOINC Test Result Flag Range Units Date 1BNP SerPl-mCnc 21 0-100 pg/mL 10/15/2017 22:15 Performing Lab Footnotes:[facility] - [id number] - [address] [place] [address] RM MADRID Order: CBC DIFF Specimen Source: Body Site: Legend: (G,H)=High, (GG,HH, CH,#H)=Above High Threshold, (#,L)=Low, (##,CL,#L,LL)=Below Low Threshold, (C,CC ,CA,#A,A)=Abnormal LOINC Test Result Flag Range Units Date 6690-2 1WBC # Bld Auto 7.3 4.8-10.8 K/uL 10/15/2017 22:15 64470-1 1RBC # Bld 5.95 4.60-6.20 M/uL 10/15/2017 22:15 718-7 1Hgb Bld-mCnc 17.3 13.5-18.0 gm/dL 10/15/2017 22:15 4544-3 1Hct VFr Bld Auto 52.7 41.0-53.0 % 10/15/2017 22:15 787-2 1MCV RBC Auto 88.6 80.0-100.0 fL 10/15/2017 22:15 94141-7 1MCHC RBC-mCnc 32.8 30.0-36.5 % 10/15/2017 22:15 69326-2 1MCH RBC Qn 29.1 27.0-34.0 pg 10/15/2017 22:15 59170-6 1RDW RBC 12.0 11.0-15.0 % 10/15/2017 22:15 777-3 1Platelet # Bld Auto 204 130-450 K/uL 10/15/2017 22:15 11775-3 1PMV Bld Auto 7.6 6.0-12.0 fL 10/15/2017 22:15 751-8 1Neutrophils # Bld Auto 62 37-80 % 10/15/2017 22:15 63171-0 1Lymphocytes NFr Bld 28 10-50 % 10/15/2017 22:15 5905-5 1Monocytes NFr Bld Auto 8 0-12 % 10/15/2017 22:15 80650-2 1Eosinophil # Bld 2 <=8 % 10/15/2017 22:15 704-7 1Basophils # Bld Auto 0 <=3 % 10/15/2017 22:15 79848-1 1Neutrophils # Bld 4.6 1.8-8.6 K/uL 10/15/2017 22:15 731-0 1Lymphocytes # Bld Auto 2.0 0.5-5.0 K/uL 10/15/2017 22:15 742-7 1Monocytes # Bld Auto 0.6 0.0-1.3 K/uL 10/15/2017 22:15 70700-0 1Eosinophil # Bld 0.1 0.0-0.9 K/uL 10/15/2017 22:15 704-7 1Basophils # Bld Auto 0.0 0.0-0.3 K/ul 10/15/2017 22:15 Performing Lab Footnotes:[facility] - [id number] - [address] [place] [address] RM Rdz [id number] Order: CK Specimen Source: Body Site: Legend: (G,H)=High, (GG,HH,CH,#H) =Above High Threshold, (#,L)=Low, (##,CL,#L,LL)=Below Low Threshold, (C,CC,CA,#A ,A)=Abnormal LOINC Test Result Flag Range Units Date 2157-6 1CK SerPl-cCnc 112 21-232 U/L 10/15/2017 22:15 Performing Lab Footnotes:[facility] - [id number] - [address] [place] [address] RM [id number] Order: COMPREHENSIVE PANEL Specimen Source: Body Site: Legend: (G,H)= High, (GG,HH,CH,#H)=Above High Threshold, (#,L)=Low, (##,CL,#L,LL)=Below Low Threshold, (C,CC,CA,#A,A)=Abnormal LOINC Test Result Flag Range Units Date 2951-2 1Sodium SerPl-sCnc 141 136-145 mmol/L 10/15/2017 22:15 2823-3 1Potassium SerPl-sCnc 4.2 3.5-5.2 mmol/L 10/15/2017 22:15 2075-0 1Chloride SerPl-sCnc 100 100-108 mmol/L 10/15/2017 22:15 2028-9 1CO2 SerPl-sCnc 31 21-32 mmol/L 10/15/2017 22:15 2345-7 1Glucose SerPl-mCnc 340 H 70-100 mg/dL 10/15/2017 22:15 3094-0 1BUN SerPl-mCnc 14 7-21 mg/dL 10/15/2017 22:15 2160-0 1Creat SerPl-mCnc 1.0 0.6-1.3 mg/dL 10/15/2017 22:15 Interpretive Megan: 1Normal Kidney Function or Mild Disease - GFR >OR=60 Chronic Kidney Disease - GFR 15-59 Renal Failure - GFR < 15 GFR not calculated on patients under 18 years of age. Calculated (estimated) GFR is based on the MDRD Study equation, which assumes a steady state for creatinine. Estimated GFR may not be appropriate for medication dosing. 52529-1 1Ca-I SerPl-mCnc 9.3 8.5-10.8 mg/dL 10/15/2017 22:15 44360-0 1GFR/BSA.pred SerPl-ArVRat >60 10/15/2017 22:15 47880-2 1Bilirub Bld-mCnc 0.3 0.0-1.2 mg/dL 10/15/2017 22:15 2885-2 1Prot SerPl-mCnc 7.2 6.4-8.2 gm/dL 10/15/2017 22:15 1751-7 1Albumin SerPl-mCnc 4.0 3.4-4.8 gm/dL 10/15/2017 22:15 6768-6 1ALP SerPl-cCnc 107 40-150 U/L 10/15/2017 22:15 1742-6 1ALT SerPl-cCnc 152 H 0-55 U/L 10/15/2017 22:15 1920-8 1AST SerPl-cCnc 64 H 5-37 U/L 10/15/2017 22:15 Performing Lab Footnotes:[facility] - [id number] - [address] [place] [address] RM Rdz MERCY Order: PT/INR Specimen Source: Body Site: Legend: (G,H)=High, (GG,HH,CH ,#H)=Above High Threshold, (#,L)=Low, (##,CL,#L,LL)=Below Low Threshold, (C,CC, CA,#A,A)=Abnormal LOINC Test Result Flag Range Units Date 5901-04 1PT Time PPP 11.1 9.4-12.4 sec 10/15/2017 22:15 6301-6 1INR PPP 1.0 10/15/2017 22:15 Interpretive Megan: 1 INR INTERPERTATION 2.0-3.0 THERAPEUTIC MONITORING 2.5-3.5 HEART VALVE REPLACEMENT Performing Lab Footnotes:[facility] - [id number] - [address] [place] [address] RM MADRID Order: TROPONIN I Specimen Source: Body Site: Legend: (G,H)=High, (GG, HH,CH,#H)=Above High Threshold, (#,L)=Low, (##,CL,#L,LL)=Below Low Threshold, (C ,CC,CA,#A,A)=Abnormal LOINC Test Result Flag Range Units Date 53637-6 1Troponin I SerPl-mCnc 0.01 0.00-0.04 ng/mL 10/15/2017 22:15 Interpretive Megan: 1 TROPONIN INTERPRETATION 0.00 - 0.04 ng/ml Normal 0.05 - 0.29 ng/ml Andrade Zone, Uncertain for AMI Greater than 0.30 ng/ml Suggestive of AMI Performing Lab Footnotes:[facility] - [id number] - [address] [place] [address] RM [id number] Order: Point of Care Glucose ACCUCHECK Specimen Source: Blood Body Site: Legend: (G,H)=High, (GG,HH,CH,#H)=Above High Threshold, (#,L)=Low, (##,CL, #L,LL)=Below Low Threshold, (C,CC,CA,#A,A)=Abnormal LOINC Test Result Flag Range Units Date 1GLUCOSE BedSide 382 CH 70-100 mg/dL 10/15/2017 21:40 Test Comment: [id number] GLENIS COFFEYON Test Comment: 1RN Notified Test Comment: 1Cleaned Meter Performing Lab Footnotes:[facility] - [id number] - [address] [place] [address] RM [id number] Radiology Results Order: CHEST PORTABLE-SINGLEExam Completion Date:10/15/2017 22: 10:26 PM CHEST PORTABLE-SINGLE ORDERING CLINICAL INFORMATION: -- SHORTNESS OF BREATH provided from eRecord without change. ADDITIONAL CLINICAL INFORMATION OBTAINED FROM EMR: None. COMPARISON: 10/02/2017 FINDINGS: Tubes and Catheters: None. Central Airways: Normal. Lungs: Normal. Pleura/Pleural space: Normal. Heart and Mediastinum: Normal. Bones and soft tissues:No acute or aggressive changes noted. IMPRESSION: No acute cardiopulmonary disease. END REPORT Electronically signed By: Flaquito Garcia M.D. Read By: FLAQUITO GARCIA Date: 10/16/2017 06:28 Social History Code Code System Social History Description Dates Observed Observation 858692549 SNOMED CT Current Smoking Current every day Status smoker M AdministrativeGender Sex Assigned At Male Vital Signs Code Code System Vitals Value Date 8865-8 LOINC Pulse Rate 70 {beats}/min 10/15/2017 9279-1 LOINC Respiratory Rate 19 /min 10/15/2017 64904-1 LOINC O2% BldC Oximetry 99 % 10/15/2017 3150-0 LOINC Inhaled Oxygen Concentration 4 liters per minute 10/15/2017 8480-6 LOINC BP Systolic 143 mm[Hg] 10/15/2017 8462-4 LOINC BP Diastolic 78 mm[Hg] 10/15/2017 8310-5 LOINC Body Temperature 99 [degF] 10/15/2017 8302-2 LOINC Height 64 [in_i] 10/15/2017 42694-2 LOINC Weight 163 kg 10/15/2017 3140-1 LOINC Body surface area Derived from 2.51 m2 10/15/2017 formula 56046-7 LOINC BMI (Body Mass Index) 62.1 kg/m2 10/15/2017 Goals Section No data in the system Health Concerns [facility] Diagnosis Date Code Code System Diagnosis Status J44.1 ICD10 COPD WITH ACUTE EXACERBATION Active Advance Directives HEALTH CARE PROXY Directive Type Effective Date [employer] Notes Supporting Document Name Address Phone No Directive 10/17/2017 Not Not Not mojgan wardrup No Type 6:30:00 AM Specified Specified Specified (sister)[phone] specified DO NOT RESUSCITATE Directive Type Effective Date [employer] Notes Supporting Document Name Address Phone No Directive Type 10/17/2017 6:30:00 Not Specified Not Specified Not Specified None Yes specified AM DO NOT INTUBATE Directive Type Effective Date [employer] Notes Supporting Document Name Address Phone No Directive Type 10/17/2017 6:30:00 Not Specified Not Specified Not Specified None Yes specified AM *RHIO - CONSENT IS YES Directive Type Effective Date [employer] Notes Supporting Document Name Address Phone No [...] Years Heart disease 70 Years Functional Status No data in the system Immunizations Vaccine Code Code System Vaccine Name Date Status 109 CVX pneumococcal vaccine, NOS Completed FLU SHOT 11/01/2014 Completed 150 CVX Influenza, injectable, 12/14/2015 Not given (patient quadrivalent, preservative objection) free 33 CVX pneumococcal polysaccharide 11/19/2016 Not given (Parental vaccine Objection) 150 CVX Influenza, injectable, 11/19/2016 Not given (patient quadrivalent, preservative objection) free INFLUENZA VACC QUAD 2016-18 04/27/2017 Not given (Medication (3YO+) Discontinued) Medical Equipment No data in the system Mental Status No data in the system Assessment and Plan Assessments No data in the systemPlan Of Treatment No data in the systemPending Tests Test Start Date Point of Care URINE DIPSTICK 10/15/2017 Hospital Discharge Instructions No data in the system Reason for Visit Reason for Visit Trouble Breathing
--- OUTSIDE RECORDS SUMMARY | 2017-11-12 14:26 | XMS REPORT | Continuity of Care Document ---
:1965 Author Organization [facility] Care Team Providers Name Role Phone RM VILLALOBOS Primary Care Physician Allergies and Intolerances Code Code Allergy Type Reaction Severity Start End Status System Substance Date Date [id number] RXNorm Glucophage Drug GI upset Unknown Active intolerence (disorder) Medications RxNorm Medication Dose Route Instructions Start End Status Date Date 3 ML Insulin 40 unit subcutaneous subcutaneously Active Glargine 100 every morning UNT/ML Pen Injector 7523749 3 ML Insulin, unit subcutaneous subcutaneously 3 Active Aspart, Human times per day as 100 UNT/ML Pen needed. Injector 900883 3 ML liraglutide 1.2 mg subcutaneous subcutaneously Active 6 MG/ML Pen every morning Injector 5859614 Albuterol 0.833 3 mL Inhalation inhaled 4 times Active MG/ML / per day as needed. Ipratropium [place] 0.167 MG/ML Inhalant Solution 19720404 Alprazolam 2 MG 2 mg oral orally 3 times per Active Oral Tablet day as needed. 19720802 ammonium lactate 1 applic Topical topically every Active 120 MG/ML day as needed. Topical Lotion 1191 Aspirin 81 mg oral orally every day Active at bedtime 522232 atorvastatin 80 80 mg oral orally every day Active MG Oral Tablet at bedtime Budesonide 2 inh Inhalation inhaled 2 times Active per day Bupropion (SR) 150 mg oral orally 2 times per Active Oral ER Tab day 029212 clopidogrel 75 75 mg oral orally every day Active MG Oral Tablet 744455 Docusate Sodium 1 tab oral orally 2 times per Active 50 MG / day sennosides, LONGTERM 8.6 MG Oral Tablet 4053 Erythromycin 125 mg oral orally 4 times per Active day 4603 Furosemide 60 mg oral orally every Active morning 681821 glucagon (rDNA) 1 mg Intramuscular intramuscularly Active 1 MG Injection once as needed. 591595 Metoprolol 50 mg oral orally 2 times per Active Tartrate 50 MG day Oral Tablet 19790306 Naproxen 500 MG 500 mg oral orally 2 times per Active Oral Tablet day as needed. 4917 Nitroglycerin 0.4 mg Sublingual sublingually every Active 5 minutes as needed. 8031887 Oxycodone 10 mg oral orally every 4 Active Hydrochloride 10 hours as needed. MG Oral Tablet 8591 Potassium 20 mEq oral orally every Active Chloride morning ProAir HFA 2 inh Inhalation inhaled every 4 Active Inhaler 90 hours as needed. mcg/actuation Ranitidine Oral 150 mg oral orally 2 times per Active day as needed. 7483825 rivaroxaban 20 20 mg oral orally every Active MG Oral Tablet evening 554831 sildenafil 50 MG 50 mg oral orally every day Active Oral Tablet as needed. Spiriva Respimat 2 inh Inhalation inhaled every Active Inhaler 2.5 morning mcg/actuation Venlafaxine Oral 225 mg oral orally every Active 24 hr Cap morning Problems Code Code System Problem Name Start Date End Date Status 439757992 SNOMED-CT Acute exacerbation of 10/17/2017 Active chronic obstructive airways disease 51522335 SNOMED-CT Oqvwm-yi-boqpamc 06/16/2017 Active respiratory failure 32634135 SNOMED-CT Chronic obstructive lung 03/05/2017 Active disease 881370435 SNOMED-CT Acute exacerbation of 02/21/2017 Active chronic obstructive airways disease 28748714946342199 SNOMED-CT Acute on chronic hypoxemic 02/21/2017 Active respiratory failure 462560173 SNOMED-CT Nicotine dependence with 02/21/2017 Active current use 52163224 SNOMED-CT Ldzmx-vr-bcwgcoy 11/30/2016 Active respiratory failure 57057779 SNOMED-CT Fkqwd-bo-zssrqec 11/18/2016 Active respiratory failure 504679745 SNOMED-CT Community acquired 12/11/2015 Active pneumonia 398506212 SNOMED-CT Acute exacerbation of 12/11/2015 Active chronic obstructive airways disease 260810714 SNOMED-CT Acute interstitial 12/11/2015 Active pneumonia 88042241 SNOMED-CT Hyponatremia 12/11/2015 Active 28034087 SNOMED-CT Elevated liver function 12/11/2015 Active 662650471 SNOMED-CT Poorly controlled type 2 12/11/2015 Active DM 020972119 SNOMED-CT Morbid obesity 12/11/2015 Active 140742905 SNOMED-CT Acute exacerbation of 12/05/2015 Active chronic obstructive airways disease 349105295 SNOMED-CT Poorly controlled type 2 12/05/2015 Active DM 41280854 SNOMED-CT Hyponatremia 12/05/2015 Active 666589243 SNOMED-CT Neutrophilia 12/05/2015 Active 122246409 SNOMED-CT Morbid obesity 12/05/2015 Active 796668571 SNOMED-CT Acute exacerbation of 11/24/2015 Active chronic obstructive airways disease 810382611 SNOMED-CT Poorly controlled type 2 11/24/2015 Active DM 19913986 SNOMED-CT Aruzo-xv-vseullz 11/24/2015 Active respiratory failure 087233176 SNOMED-CT Morbid obesity 11/24/2015 Active 92503311 SNOMED-CT Elevated liver function 04/18/2015 U Active 135263105 SNOMED-CT Morbid obesity 04/17/2015 U Active 368928868 SNOMED-CT Poorly controlled type 2 04/17/2015 U Active DM 471847946 SNOMED-CT Acute exacerbation of 04/17/2015 U Active chronic obstructive airways disease 81826348 SNOMED-CT Mfosi-vz-xzqhnut 04/17/2015 U Active respiratory failure 797080464 SNOMED-CT Good hypertension control 04/17/2015 U Active 194245800 SNOMED-CT Tobacco dependence, 04/17/2015 U Active continuous 697061999 SNOMED-CT Acute exacerbation of 04/06/2015 U Active chronic obstructive airways disease 77812004 SNOMED-CT Lluro-uf-assfjui 03/11/2015 U Active respiratory failure 32957335 SNOMED-CT Nicotine dependence 2016 Active EEG: prolonged and sleep 2016 Active deprived EEG done in the awake and drowsy states was normal. Clear epileptiform activity was not seen. 342516877 SNOMED-CT Acute exacerbation of 09/18/2014 U Active chronic obstructive airways disease 396036928 SNOMED-CT Dependent edema 09/18/2014 U Active 235789165 SNOMED-CT Right heart failure 09/18/2014 U Active 55483046 SNOMED-CT Chronic cor pulmonale 09/18/2014 U Active 25084346 SNOMED-CT Hyponatremia with excess 09/18/2014 U Active extracellular fluid volume 58212871 SNOMED-CT Hypokalemia 09/18/2014 U Active 142236504 SNOMED-CT Cellulitis of leg 09/18/2014 U Active 784963791 SNOMED-CT Right heart failure due to 09/18/2014 U Active pulmonary hypertension 392548104 SNOMED-CT Morbid obesity 09/18/2014 U Active 490854421 SNOMED-CT Acute exacerbation of 08/17/2014 U Active chronic obstructive airways disease 88774139 SNOMED-CT Upper respiratory 08/17/2014 U Active infection 63261427 SNOMED-CT Acute bronchitis with 08/17/2014 U Active bronchospasm 963597692 SNOMED-CT Cellulitis of leg 08/17/2014 U Active 194666061 SNOMED-CT Diabetic foot ulcer 08/17/2014 U Active 741817197 SNOMED-CT Cellulitis in diabetic 08/17/2014 U Active foot 608026925 SNOMED-CT Type II diabetes mellitus 08/17/2014 U Active well controlled 661182109 SNOMED-CT Moderate hypertension 08/17/2014 U Active control 942389415 SNOMED-CT Acute purulent bronchitis 08/17/2014 U Active 253065528 SNOMED-CT Weight increased 08/17/2014 U Active 983247650 SNOMED-CT Poorly controlled type 2 06/21/2014 U Active DM 614122385 SNOMED-CT Acute exacerbation of 06/21/2014 U Active chronic obstructive airways disease 738109597 SNOMED-CT Acute interstitial 06/21/2014 U Active pneumonia 41882386 SNOMED-CT Systolic hypertension 06/21/2014 U Active 559168538 SNOMED-CT Poor hypertension control 06/21/2014 U Active 169284381 SNOMED-CT Morbid obesity 06/21/2014 U Active 35198915 SNOMED-CT Chronic cor pulmonale 06/21/2014 U Active 87531031 SNOMED-CT Alteration in fluid 06/21/2014 U Active volume: excess 275898036 SNOMED-CT Acute exacerbation of 02/23/2014 U Active chronic obstructive airways disease 857202035 SNOMED-CT Acute exacerbation of 02/12/2014 U Active chronic obstructive airways disease 450164991 SNOMED-CT Acute exacerbation of 02/01/2014 U Active chronic obstructive airways disease Excision of epidermal 2013 U Completed inclusion cyst of scrotum by Dr. Hennessy 70170796 SNOMED-CT Acute bronchitis 08/13/2012 Active 04:00 abcess 04/22/2012 Active 05:00 76207910 SNOMED-CT Congestive heart failure 2007 Active (disorder) 91123663 SNOMED-CT Myocardial infarction 2007 Active 96844040 SNOMED-CT Chronic obstructive lung 2007 Active disease ABD HERNIA U Active 055618910 SNOMED-CT Gastroesophageal reflux U Active disease 10718340 SNOMED-CT Hypercholesterolemia U Active 54205336 SNOMED-CT Hypertensive disorder U U Active 78894808 SNOMED-CT Chronic obstructive lung U U Active disease 852901441 SNOMED-CT Morbid obesity U U Active 68902540 SNOMED-CT Hyperlipidemia U U Active 56272199 SNOMED-CT Heart disease U Active 26612482 SNOMED-CT Hypertensive disorder U Active 45276197 SNOMED-CT Diabetes mellitus U Active 45593825 SNOMED-CT Gastrointestinal ulcer U Active 91240650 SNOMED-CT Kidney stone U Active 31552912 SNOMED-CT Sleep apnea U Active 7737738 SNOMED-CT Arthritis U Active 170296687 SNOMED-CT Diabetic peripheral U Active neuropathy 16340108 SNOMED-CT Diabetes mellitus type 2 U U Active 40073262 SNOMED-CT Generalized anxiety U U Active disorder 984300894 SNOMED-CT Acute exacerbation of U U Active chronic obstructive airways disease 50994225 SNOMED-CT Nicotine dependence U U Active 916883814 SNOMED-CT Diabetic neuropathy U U Active 59628929 SNOMED-CT Chronic respiratory U U Active failure 370753131 SNOMED-CT AST/SGOT level abnormal U U Active 483203968 SNOMED-CT ALT (SGPT) level raised U U Active 33726369 SNOMED-CT Depressive disorder U U Active 72018834 SNOMED-CT Bipolar disorder U U Active 755290820 SNOMED-CT Severe chronic obstructive U Active pulmonary disease 88498800 SNOMED-CT Nicotine dependence U Active 712306991 SNOMED-CT Patient noncompliance - U Active general (situation) Procedures Code Code System Procedure Date SNOMED CT Cholecystectomy [address] Cholecystectomy U Results Laboratory Results Order: B-TYPE NATRIURETIC PEPTID Specimen Source: Body Site: Legend: (G,H)=High, (GG,HH,CH,#H)=Above High Threshold, (#,L) =Low, (##,CL,#L,LL)=Below Low Threshold, (C,CC,CA,#A,A)=Abnormal LOINC Test Result Flag Range Units Date 1BNP SerPl-mCnc 29 0-100 pg/mL 10/19/2017 19:50 Performing Lab Footnotes:[facility] - [id number] - [address] [place] [address] RM MADRID Order: CBC DIFF Specimen Source: Body Site: Legend: (G,H)=High, (GG,HH, CH,#H)=Above High Threshold, (#,L)=Low, (##,CL,#L,LL)=Below Low Threshold, (C,CC ,CA,#A,A)=Abnormal LOINC Test Result Flag Range Units Date 6690-2 1WBC # Bld Auto 7.2 4.8-10.8 K/uL 10/19/2017 19:50 85394-5 1RBC # Bld 5.86 4.60-6.20 M/uL 10/19/2017 19:50 718-7 1Hgb Bld-mCnc 17.0 13.5-18.0 gm/dL 10/19/2017 19:50 4544-3 1Hct VFr Bld Auto 51.9 41.0-53.0 % 10/19/2017 19:50 787-2 1MCV RBC Auto 88.5 80.0-100.0 fL 10/19/2017 19:50 23256-7 1MCHC RBC-mCnc 32.8 30.0-36.5 % 10/19/2017 19:50 37576-9 1MCH RBC Qn 29.0 27.0-34.0 pg 10/19/2017 19:50 37535-1 1RDW RBC 11.9 11.0-15.0 % 10/19/2017 19:50 777-3 1Platelet # Bld Auto 219 130-450 K/uL 10/19/2017 19:50 71271-7 1PMV Bld Auto 7.3 6.0-12.0 fL 10/19/2017 19:50 751-8 1Neutrophils # Bld Auto 61 37-80 % 10/19/2017 19:50 65701-2 1Lymphocytes NFr Bld 31 10-50 % 10/19/2017 19:50 5905-5 1Monocytes NFr Bld Auto 7 0-12 % 10/19/2017 19:50 17212-3 1Eosinophil # Bld 1 <=8 % 10/19/2017 19:50 704-7 1Basophils # Bld Auto 0 <=3 % 10/19/2017 19:50 53351-4 1Neutrophils # Bld 4.4 1.8-8.6 K/uL 10/19/2017 19:50 731-0 1Lymphocytes # Bld Auto 2.2 0.5-5.0 K/uL 10/19/2017 19:50 742-7 1Monocytes # Bld Auto 0.5 0.0-1.3 K/uL 10/19/2017 19:50 28266-2 1Eosinophil # Bld 0.0 0.0-0.9 K/uL 10/19/2017 19:50 704-7 1Basophils # Bld Auto 0.0 0.0-0.3 K/ul 10/19/2017 19:50 Performing Lab Footnotes:[facility] - [id number] - [address] [place] [address] RM Rdz [id number] Order: CK Specimen Source: Body Site: Legend: (G,H)=High, (GG,HH,CH,#H) =Above High Threshold, (#,L)=Low, (##,CL,#L,LL)=Below Low Threshold, (C,CC,CA,#A ,A)=Abnormal LOINC Test Result Flag Range Units Date 2157-6 1CK SerPl-cCnc 57 21-232 U/L 10/19/2017 19:50 Performing Lab Footnotes:[facility] - [id number] - [address] [place] [address] RM [id number] Order: COMPREHENSIVE PANEL Specimen Source: Body Site: Legend: (G,H)= High, (GG,HH,CH,#H)=Above High Threshold, (#,L)=Low, (##,CL,#L,LL)=Below Low Threshold, (C,CC,CA,#A,A)=Abnormal LOINC Test Result Flag Range Units Date 2951-2 1Sodium SerPl-sCnc 135 L 136-145 mmol/L 10/19/2017 19:50 2823-3 1Potassium SerPl-sCnc 4.0 3.5-5.2 mmol/L 10/19/2017 19:50 2075-0 1Chloride SerPl-sCnc 96 L 100-108 mmol/L 10/19/2017 19:50 2028-9 1CO2 SerPl-sCnc 30 21-32 mmol/L 10/19/2017 19:50 2345-7 1Glucose SerPl-mCnc 453 CH 70-100 mg/dL 10/19/2017 19:50 3094-0 1BUN SerPl-mCnc 22 H 7-21 mg/dL 10/19/2017 19:50 2160-0 1Creat SerPl-mCnc 1.0 0.6-1.3 mg/dL 10/19/2017 19:50 Interpretive Megan: 1Normal Kidney Function or Mild Disease - GFR >OR=60 Chronic Kidney Disease - GFR 15-59 Renal Failure - GFR < 15 GFR not calculated on patients under 18 years of age. Calculated (estimated) GFR is based on the MDRD Study equation, which assumes a steady state for creatinine. Estimated GFR may not be appropriate for medication dosing. 43622-6 1Ca-I SerPl-mCnc 9.1 8.5-10.8 mg/dL 10/19/2017 19:50 38050-4 1GFR/BSA.pred SerPl-ArVRat >60 10/19/2017 19:50 42461-6 1Bilirub Bld-mCnc 0.3 0.0-1.2 mg/dL 10/19/2017 19:50 2885-2 1Prot SerPl-mCnc 7.0 6.4-8.2 gm/dL 10/19/2017 19:50 1751-7 1Albumin SerPl-mCnc 3.9 3.4-4.8 gm/dL 10/19/2017 19:50 6768-6 1ALP SerPl-cCnc 101 40-150 U/L 10/19/2017 19:50 1742-6 1ALT SerPl-cCnc 174 H 0-55 U/L 10/19/2017 19:50 1920-8 1AST SerPl-cCnc 91 H 5-37 U/L 10/19/2017 19:50 Performing Lab Footnotes:[facility] - [id number] - [address] [place] [address] NOEKendell MADRID Order: PT/INR Specimen Source: Body Site: Legend: (G,H)=High, (GG,HH,CH ,#H)=Above High Threshold, (#,L)=Low, (##,CL,#L,LL)=Below Low Threshold, (C,CC, CA,#A,A)=Abnormal LOINC Test Result Flag Range Units Date 5901-04 1PT Time PPP 10.9 9.4-12.4 sec 10/19/2017 19:50 6301-6 1INR PPP 1.0 10/19/2017 19:50 Interpretive Megan: 1 INR INTERPERTATION 2.0-3.0 THERAPEUTIC MONITORING 2.5-3.5 HEART VALVE REPLACEMENT Performing Lab Footnotes:[facility] - [id number] - [address] [place] [address] RM MADRID Order: TROPONIN I Specimen Source: Body Site: Legend: (G,H)=High, (GG, HH,CH,#H)=Above High Threshold, (#,L)=Low, (##,CL,#L,LL)=Below Low Threshold, (C ,CC,CA,#A,A)=Abnormal LOINC Test Result Flag Range Units Date 87064-6 1Troponin I SerPl-mCnc 0.00 0.00-0.04 ng/mL 10/19/2017 19:50 Interpretive Megan: 1 TROPONIN INTERPRETATION 0.00 - 0.04 ng/ml Normal 0.05 - 0.29 ng/ml Andrade Zone, Uncertain for AMI Greater than 0.30 ng/ml Suggestive of AMI Performing Lab Footnotes:[facility] - [id number] - [address] [place] [address] RM [id number] Order: Point of Care Glucose ACCUCHECK Specimen Source: Blood Body Site: Legend: (G,H)=High, (GG,HH,CH,#H)=Above High Threshold, (#,L)=Low, (##,CL, #L,LL)=Below Low Threshold, (C,CC,CA,#A,A)=Abnormal LOINC Test Result Flag Range Units Date 1GLUCOSE BedSide 380 CH 70-100 mg/dL 10/19/2017 19:44 Test Comment: [id number] [place]ER[place]T FANG Test Comment: 1RN Notified Performing Lab Footnotes:[facility] - [id number] - [address] [place] [address] RM [id number] Radiology Results Order: CHEST PORTABLE-SINGLEExam Completion Date:10/19/2017 19: 7:47 PM CHEST PORTABLE-SINGLE ORDERING CLINICAL INFORMATION: -- SHORTNESS OF BREATH provided from eRecord without change. ADDITIONAL CLINICAL INFORMATION OBTAINED FROM EMR: None. COMPARISON: Chest radiograph 10/17/2017. FINDINGS: Tubes and Catheters: None. CentralAirways: Normal. Lungs: Normal. Pleura/Pleural space: Normal. Heart and Mediastinum: Normal. Bones and Soft Tissues: No acute osseous abnormalities. IMPRESSION: No acute cardiopulmonary disease. END REPORT I have personally reviewed the image(s) and the resident's interpretation and agree with or edited the findings. Interpreted By: Miles Black M.D. Electronically signed By: Melanie CamposSAlejandra Read By: MELANIE BARBOZA Date: 10/19/2017 22:03 Social History Code Code System Social History Description Dates Observed Observation 007540756003606 SNOMED CT Current Smoking Current some day Status smoker M AdministrativeGender Sex Assigned At Male Vital Signs Code Code System Vitals Value Date 8865-8 LOINC Pulse Rate 86 {beats}/min 10/19/2017 9279-1 LOINC Respiratory Rate 20 /min 10/19/2017 11067-0 LOINC O2% BldC Oximetry 93 % 10/19/2017 8480-6 LOINC BP Systolic 148 mm[Hg] 10/19/2017 8462-4 LOINC BP Diastolic 86 mm[Hg] 10/19/2017 8310-5 LOINC Body Temperature 97.7 [degF] 10/19/2017 8302-2 LOINC Height 74 [in_i] 10/19/2017 55349-7 LOINC Weight 164 kg 10/19/2017 3140-1 LOINC Body surface area Derived from formula 2.79 m2 10/19/2017 48245-0 LOINC BMI (Body Mass Index) 46.8 kg/m2 10/19/2017 Goals Section No data in the system Health Concerns [facility] Diagnosis Date Code Code System Diagnosis Status J44.1 ICD10 COPD WITH ACUTE EXACERBATION Active Advance Directives [facility] Directive Type Effective Date Certified Pathology Assistant Notes Supporting Document Name Address Phone No Directive 10/17/2017 Not Not Not mojgan wardrup No Type 6:30:00 AM Specified Specified Specified (sister)[phone] specified DO NOT RESUSCITATE Directive Type Effective Date Certified Pathology Assistant Notes Supporting Document Name Address Phone No Directive Type 10/17/2017 6:30:00 Not Specified Not Specified Not Specified None Yes specified AM DO NOT INTUBATE Directive Type Effective Date Certified Pathology Assistant Notes Supporting Document Name Address Phone No Directive Type 10/17/2017 6:30:00 Not Specified Not Specified Not Specified None Yes specified AM *RHIO - CONSENT IS YES Directive Type Effective Date Certified Pathology Assistant Notes Supporting Document Name Address Phone No [...] Code Functional Condition Code System Date Status Obese SNOMED CT 10/19/2017 Active Independent adls SNOMED CT 10/19/2017 Active Appears well nourished/hydrated [facility] CT 10/19/2017 Active Immunizations Vaccine Code Code System Vaccine [...] Date Status Oriented x [address] 10/19/2017 Active No acute distress SNOMED CT 10/19/2017 Active Alert [facility] CT 10/19/2017 Active Assessment and Plan Assessments No data in the systemPlan Of Treatment No data in the systemPending Tests Test Start Date Point of Care URINE DIPSTICK 10/19/2017 Hospital Discharge Instructions No data in the system Reason for Visit Reason for Visit Shortness of Breath
--- NOTE | 2017-11-12 14:40 | RAD ---
INDICATION: Altered mental status. COMPARISON: There are no relevant prior studies available for comparison. TECHNIQUE: A portable view of the chest was obtained. FINDINGS: The heart appears enlarged. The lungs are underinflated and grossly clear. There is more focal elevation of the right hemidiaphragm. No pleural effusion is seen. IMPRESSION: MILD CARDIOMEGALY.
[2017-11-12] MEDS ORDERED: Propofol* 500 MG/50 ML BTL IV SCH (15:00)
[2017-11-12] MEDS ORDERED: Atropine SYRINGE* 0.1 MG/ML 10 ML SYRINGE (1 MG) ONE (15:09)
[2017-11-12] MEDS ORDERED: Propofol* 100 ML ONE (15:25)
--- NOTE | 2017-11-12 16:01 | RAD ---
Indication: OG tube placement. Single frontal view of the chest performed at 1535 hours was reviewed. Comparison is made with previous exam dated November 12, 2017. No mediastinal shift is noted. Heart is mildly enlarged. Lung casillas appear hyperinflated. Endotracheal tube is in place. Nasogastric tube is in place. IMPRESSION: NO ACTIVE CARDIOPULMONARY DISEASE IS NOTED.
[2017-11-12 16:24] LABS: Urine Appearance Clear; Urine Blood 2+ (Negative); Urine Color Yellow; Urine Ketones Negative (Negative); Urine Protein 2+(100 mg/dL) (Negative); Urine Red Blood Cell 3+(>10/hpf) (Absent); Urine Specific Gravity 1.016 (1.010-1.030); Urine Urobilinogen Negative (Negative); Urine White Blood Cell Trace(0-5/hpf) (Absent)
[2017-11-12] MEDS: Enoxaparin(*) 40 MG/0.4 ML SYR SUBCUT SCH (16:32)
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
[2017-11-12] MEDS: Azithromycin IV(*) 500 MG in NS 0.9% 250 ML* 250 ML IVPB SCH (17:30)
[2017-11-12] MEDS: methylPREDNISolone SOD 40 MG* 1 ML VIAL IV SCH (17:36)
[2017-11-12] MEDS: Propofol* 100 ML IV SCH ×2 (17:45→20:44)
[2017-11-12] MEDS: Insulin LISPRO* 1 UNITS UNIT SUBCUT SCH (17:53)
[2017-11-13] MEDS ORDERED: Chlorhexidine MOUTHWASH 0.12%* 15 ML UDC ONE (00:05)
[2017-11-13] MEDS: Insulin LISPRO* 1 UNITS UNIT SUBCUT SCH ×4 (00:13→18:34)
[2017-11-13] MEDS: Propofol* 100 ML IV SCH ×10 (02:37→23:52)
[2017-11-13] MEDS: Chlorhexidine MOUTHWASH 0.12%* 15 ML UDC TOPICAL SCH ×6 (04:46→20:32)
[2017-11-13] MEDS: methylPREDNISolone SOD 40 MG* 1 ML VIAL IV SCH ×2 (04:46→17:08)
[2017-11-13 05:14] LABS: ABS Basophils 0 10^3/ul (0-0.2); ABS Eosinophils 0 10^3/ul (0-0.6); ABS Lymphocytes 0.6 10^3/ul (1.0-4.8); ABS Monocytes 0.2 10^3/ul (0-0.8); ABS Neutrophils 6.2 10^3/ul (1.5-7.7); ABS Nucleated RBC 0 10^3/ul; Eosinophil % 0 % (0-6); Hematocrit 47 % (42-52); Hemoglobin 15.5 g/dl (14.0-18.0); Lymphocyte % 9.1 % (25-47); Mean Corpuscular HGB Conc 33 g/dl (31-36); Mean Corpuscular Hemoglobin 29 pg (27-31); Mean Corpuscular Volume 87 fL (80-94); Nucleated Red Blood Cells % 0.2; Platelet Count 191 10^3/ul (150-450); Red Blood Count 5.43 10^6/ul (4.00-5.40); Red Cell Distribution Width 14 % (10.5-15)
[2017-11-13 05:32] LABS: EGFR Non-African American 116.5 (>60)
[2017-11-13] MEDS ORDERED: Furosemide IV* 10 MG/ML 2 ML VIAL (20 MG) IV SLOW PU ONE (08:48)
--- NOTE | 2017-11-13 08:52 | PN ---
Date of Service: 11/13/17 Critical Care Services: 2M with htn, hld, dm, copd presents with AMS 2/2 hypercapnea? Vital Signs: Temp Pulse Resp BP SpO2 FiO2 98.8 F 76 17 126/73 96 50 11/13/17 07:45 11/13/17 08:30 11/13/17 08:00 11/13/17 08:30 11/13/17 08:30 11/13 05:05 Physical Exam: Gen - intubated and sedated HEENT - ncat, perrl Neck - no jvd CV - s1/s2, no murmur Pulm - +wheezes Abd - soft, nt, + umbilical hernia that is reducible Ext - + LE edema Neuro - unresponisve Fluid Balance (Past 24 Hours): I= O= Net Intake & Output 11/11/17 11/12/17 11/13/17 11/14/17 06:59 06:59 06:59 06:59 Intake Total 2931 Output Total 1760 60 Balance 1171 -60 Weight 162.5 kg Intake: IV Fluids 2139 NS to Maintain IV Patency 39 IVPB 272 ABX - AZITHROMYCIN 272 Medicated IV 520 CC - Propofol/Diprivan 520 Oral 0 Output: NG Tube Drainage Amount 300 Urine 125 Bullock 1335 60 Labs: Laboratory Results - last 24 hr 11/12/17 11/12/17 11/12/17 12:57 12:57 12:57 WBC 6.2 RBC 5.53 H Hgb 15.9 Hct 48 MCV 87 MCH 29 MCHC 33 RDW 14 Plt Count 196 MPV 8.3 Neut % (Auto) 55.4 Lymph % (Auto) 30.4 [place] % (Auto) 9.9 H Eos % (Auto) 3.7 Baso % (Auto) 0.6 Absolute Neuts (auto) 3.5 Absolute Lymphs (auto) 1.9 Absolute Monos (auto) 0.6 Absolute Eos (auto) 0.2 Absolute Basos (auto) 0 Absolute Nucleated RBC 0 Nucleated RBC % 0.1 Patient Temperature ABG pH ABG pH (Temp Correct) ABG pCO2 ABG pCO2 (Temp Corrct ABG pO2 ABG pO2 (Temp Correct ABG HCO3 ABG O2 Saturation ABG Base Excess VBG pH VBG pCO2 VBG pO2 VBG HCO3 VBG O2 Saturation VBG Base Excess Respiration Rate O2 Delivery Device Ventilator Type Vent Mode FiO2 Inspiratory Time PEEP Pressure Support Pressure Control EPAP IPAP BiPAP Sodium 138 Potassium 4.7 Chloride 101 Carbon Dioxide 33 H Anion Gap 4 BUN 21 Creatinine 0.97 Est GFR ( Amer) 98.3 Est GFR (Non-Af Amer) 81.3 BUN/Creatinine Ratio 21.6 H Glucose 380 H POC Glucose (mg/dL) Lactic Acid 0.9 Calcium 8.7 Magnesium Total Bilirubin 0.20 AST 41 H ALT 97 H Alkaline Phosphatase 97 Ammonia Troponin I 0.00 Total Protein 7.0 Albumin 3.9 Globulin 3.1 Albumin/Globulin Ratio 1.3 Urine Color Urine Appearance Urine pH Ur Specific [place] Urine Protein Urine Ketones Urine Blood Urine Nitrate Urine Bilirubin Urine Urobilinogen Ur Leukocyte Esterase Urine WBC (Auto) Urine RBC (Auto) Ur Squamous Epith Cells Urine Bacteria Urine Glucose Urine Opiates Screen Ur Barbiturates Screen Ur Phencyclidine Scrn Ur Amphetamines Screen U Benzodiazepines Scrn Urine Cocaine Screen U Cannabinoids Screen Serum Alcohol < 10 11/12/17 11/12/17 11/12/17 13:30 14:00 14:00 WBC RBC Hgb Hct MCV MCH MCHC RDW Plt Count MPV Neut % (Auto) Lymph % (Auto) [place] % (Auto) Eos % (Auto) Baso % (Auto) Absolute Neuts (auto) Absolute Lymphs (auto) Absolute Monos (auto) Absolute Eos (auto) Absolute Basos (auto) Absolute Nucleated RBC Nucleated RBC % Patient Temperature Not Reportable ABG pH 7.18 L* ABG pH (Temp Correct) Not Reportable ABG pCO2 93 H* ABG pCO2 (Temp Corrct Not Reportable ABG pO2 92 ABG pO2 (Temp Correct Not Reportable ABG HCO3 26.6 ABG O2 Saturation 97.2 ABG Base Excess 2.4 H VBG pH 7.14 L VBG pCO2 101 H VBG pO2 56 H VBG HCO3 25.4 VBG O2 Saturation 88.5 H VBG Base Excess 1.2 Respiration Rate Not Reportable O2 Delivery Device nasal cannula 3lpm Ventilator Type Not Reportable Vent Mode Not Reportable FiO2 Not Reportable Inspiratory Time Not Reportable PEEP Not Reportable Pressure Support Not Reportable Pressure Control Not Reportable EPAP Not Reportable IPAP Not Reportable BiPAP Not Reportable Sodium Potassium Chloride Carbon Dioxide Anion Gap BUN Creatinine Est GFR ( Amer) Est GFR (Non-Af Amer) BUN/Creatinine Ratio Glucose POC Glucose (mg/dL) Lactic Acid Calcium Magnesium Total Bilirubin AST ALT Alkaline Phosphatase Ammonia 60 H Troponin I Total Protein Albumin Globulin Albumin/Globulin Ratio Urine Color Urine Appearance Urine pH Ur Specific [place] Urine Protein Urine Ketones Urine Blood Urine Nitrate Urine Bilirubin Urine Urobilinogen Ur Leukocyte Esterase Urine WBC (Auto) Urine RBC (Auto) Ur Squamous Epith Cells Urine Bacteria Urine Glucose Urine Opiates Screen Ur Barbiturates Screen Ur Phencyclidine Scrn Ur Amphetamines Screen U Benzodiazepines Scrn Urine Cocaine Screen U Cannabinoids Screen Serum Alcohol 11/12/17 11/12/17 11/12/17 15:45 15:45 16:35 WBC RBC Hgb Hct MCV MCH MCHC RDW Plt Count MPV Neut % (Auto) Lymph % (Auto) [place] % (Auto) Eos % (Auto) Baso % (Auto) Absolute Neuts (auto) Absolute Lymphs (auto) Absolute Monos (auto) Absolute Eos (auto) Absolute Basos (auto) Absolute Nucleated RBC Nucleated RBC % Patient Temperature Not Reportable ABG pH 7.21 L ABG pH (Temp Correct) Not Reportable ABG pCO2 82 H* ABG pCO2 (Temp Corrct Not Reportable ABG pO2 62 L ABG pO2 (Temp Correct Not Reportable ABG HCO3 26.1 ABG O2 Saturation 94.3 L ABG Base Excess 1.8 VBG pH VBG pCO2 VBG pO2 VBG HCO3 VBG O2 Saturation VBG Base Excess Respiration Rate 14 O2 Delivery Device vent Ventilator Type 550 Vent Mode cmv FiO2 30 Inspiratory Time Not Reportable PEEP 10 Pressure Support Not Reportable Pressure Control Not Reportable EPAP Not Reportable IPAP Not Reportable BiPAP Not Reportable Sodium Potassium Chloride Carbon Dioxide Anion Gap BUN Creatinine Est GFR ( Amer) Est GFR (Non-Af Amer) BUN/Creatinine Ratio Glucose POC Glucose (mg/dL) Lactic Acid Calcium Magnesium Total Bilirubin AST ALT Alkaline Phosphatase Ammonia Troponin I Total Protein Albumin Globulin Albumin/Globulin Ratio Urine Color Yellow Urine Appearance Clear Urine pH 5.0 Ur Specific [place] 1.016 Urine Protein 2+(100 mg/dl) A Urine Ketones Negative Urine Blood 2+ A Urine Nitrate Negative Urine Bilirubin Negative Urine Urobilinogen Negative Ur Leukocyte Esterase Negative Urine WBC (Auto) Trace(0-5/hpf) Urine RBC (Auto) 3+(>10/hpf) A Ur Squamous Epith Cells Present A Urine Bacteria Absent Urine Glucose 3+(>=500 mg/dl) A Urine Opiates Screen None detected Ur Barbiturates Screen None detected Ur Phencyclidine Scrn None detected Ur Amphetamines Screen None detected U Benzodiazepines Scrn Presumptive positive A Urine Cocaine Screen None detected U Cannabinoids Screen None detected Serum Alcohol 11/12/17 11/13/17 11/13/17 17:48 00:09 05:01 WBC RBC Hgb Hct MCV MCH MCHC RDW Plt Count MPV Neut % (Auto) Lymph % (Auto) [place] % (Auto) Eos % (Auto) Baso % (Auto) Absolute Neuts (auto) Absolute Lymphs (auto) Absolute Monos (auto) Absolute Eos (auto) Absolute Basos (auto) Absolute Nucleated RBC Nucleated RBC % Patient Temperature Not Reportable ABG pH 7.34 L ABG pH (Temp Correct) Not Reportable ABG pCO2 59 H ABG pCO2 (Temp Corrct Not Reportable ABG pO2 73 L ABG pO2 (Temp Correct Not Reportable ABG HCO3 28.0 ABG O2 Saturation 97.0 ABG Base Excess 4.1 H VBG pH VBG pCO2 VBG pO2 VBG HCO3 VBG O2 Saturation VBG Base Excess Respiration Rate 16 O2 Delivery Device ventilator Ventilator Type 500 Vent Mode cmv FiO2 50 Inspiratory Time Not Reportable PEEP 10 Pressure Support Not Reportable Pressure Control Not Reportable EPAP Not Reportable IPAP Not Reportable BiPAP Not Reportable Sodium Potassium Chloride Carbon Dioxide Anion Gap BUN Creatinine Est GFR ( Amer) Est GFR (Non-Af Amer) BUN/Creatinine Ratio Glucose POC Glucose (mg/dL) 350 H 286 H Lactic Acid Calcium Magnesium Total Bilirubin AST ALT Alkaline Phosphatase Ammonia Troponin I Total Protein Albumin Globulin Albumin/Globulin Ratio Urine Color Urine Appearance Urine pH Ur Specific [place] Urine Protein Urine Ketones Urine Blood Urine Nitrate Urine Bilirubin Urine Urobilinogen Ur Leukocyte Esterase Urine WBC (Auto) Urine RBC (Auto) Ur Squamous Epith Cells Urine Bacteria Urine Glucose Urine Opiates Screen Ur Barbiturates Screen Ur Phencyclidine Scrn Ur Amphetamines Screen U Benzodiazepines Scrn Urine Cocaine Screen U Cannabinoids Screen Serum Alcohol 11/13/17 11/13/17 11/13/17 05:05 05:05 05:55 WBC 7.0 RBC 5.43 H Hgb 15.5 Hct 47 MCV 87 MCH 29 MCHC 33 RDW 14 Plt Count 191 MPV 8.0 Neut % (Auto) 88.2 H Lymph % (Auto) 9.1 L [place] % (Auto) 2.4 Eos % (Auto) 0 Baso % (Auto) 0.3 Absolute Neuts (auto) 6.2 Absolute Lymphs (auto) 0.6 L Absolute Monos (auto) 0.2 Absolute Eos (auto) 0 Absolute Basos (auto) 0 Absolute Nucleated RBC 0 Nucleated RBC % 0.2 Patient Temperature ABG pH ABG pH (Temp Correct) ABG pCO2 ABG pCO2 (Temp Corrct ABG pO2 ABG pO2 (Temp Correct ABG HCO3 ABG O2 Saturation ABG Base Excess VBG pH VBG pCO2 VBG pO2 VBG HCO3 VBG O2 Saturation VBG Base Excess Respiration Rate O2 Delivery Device Ventilator Type Vent Mode FiO2 Inspiratory Time PEEP Pressure Support Pressure Control EPAP IPAP BiPAP Sodium 140 Potassium TNP TNP Chloride 103 Carbon Dioxide 31 Anion Gap 6 BUN 17 Creatinine 0.71 Est GFR ( Amer) 141.0 Est GFR (Non-Af Amer) 116.5 BUN/Creatinine Ratio 23.9 H Glucose 262 H POC Glucose (mg/dL) Lactic Acid Calcium 8.3 L Magnesium 2.0 Total Bilirubin 0.30 AST TNP TNP ALT 119 H Alkaline Phosphatase 85 Ammonia Troponin I Total Protein 6.4 Albumin 3.6 Globulin 2.8 Albumin/Globulin Ratio 1.3 Urine Color Urine Appearance Urine pH Ur Specific [place] Urine Protein Urine Ketones Urine Blood Urine Nitrate Urine Bilirubin Urine Urobilinogen Ur Leukocyte Esterase Urine WBC (Auto) Urine RBC (Auto) Ur Squamous Epith Cells Urine Bacteria Urine Glucose Urine Opiates Screen Ur Barbiturates Screen Ur Phencyclidine Scrn Ur Amphetamines Screen U Benzodiazepines Scrn Urine Cocaine Screen U Cannabinoids Screen Serum Alcohol 11/13/17 11/13/17 05:59 07:55 WBC RBC Hgb Hct MCV MCH MCHC RDW Plt Count MPV Neut % (Auto) Lymph % (Auto) [place] % (Auto) Eos % (Auto) Baso % (Auto) Absolute Neuts (auto) Absolute Lymphs (auto) Absolute Monos (auto) Absolute Eos (auto) Absolute Basos (auto) Absolute Nucleated RBC Nucleated RBC % Patient Temperature ABG pH ABG pH (Temp Correct) ABG pCO2 ABG pCO2 (Temp Corrct ABG pO2 ABG pO2 (Temp Correct ABG HCO3 ABG O2 Saturation ABG Base Excess VBG pH VBG pCO2 VBG pO2 VBG HCO3 VBG O2 Saturation VBG Base Excess Respiration Rate O2 Delivery Device Ventilator Type Vent Mode FiO2 Inspiratory Time PEEP Pressure Support Pressure Control EPAP IPAP BiPAP Sodium Potassium 4.4 Chloride Carbon Dioxide Anion Gap BUN Creatinine Est GFR ( Amer) Est GFR (Non-Af Amer) BUN/Creatinine Ratio Glucose POC Glucose (mg/dL) 266 H Lactic Acid Calcium Magnesium Total Bilirubin AST 40 H ALT Alkaline Phosphatase Ammonia Troponin I Total Protein Albumin Globulin Albumin/Globulin Ratio Urine Color Urine Appearance Urine pH Ur Specific [place] Urine Protein Urine Ketones Urine Blood Urine Nitrate Urine Bilirubin Urine Urobilinogen Ur Leukocyte Esterase Urine WBC (Auto) Urine RBC (Auto) Ur Squamous Epith Cells Urine Bacteria Urine Glucose Urine Opiates Screen Ur Barbiturates Screen Ur Phencyclidine Scrn Ur Amphetamines Screen U Benzodiazepines Scrn Urine Cocaine Screen U Cannabinoids Screen Serum Alcohol Studies: Head CT 11/12 IMPRESSION: NO ACUTE INTRACRANIAL PATHOLOGY. Cervical Spine CT 11/12 IMPRESSION: WHILE THERE IS NO OBVIOUS ACUTE OSSEOUS INJURY TO THE CERVICAL SPINE, EVALUATION IS LIMITED DUE TO PATIENT MOTION ARTIFACT PARTICULARLY LIMITING EVALUATION OF C4. CXR 11/12 IMPRESSION: NO ACTIVE CARDIOPULMONARY DISEASE IS NOTED. Impression: 52M with htn, hld, dm, copd presents with AMS Plan: Neuro - AMS - 2/2 hypercapnea? - utox + for benzos - head ct negative - neuro checks CV - htn - add anti-hypertensives prn Pulm - hypercapnic respiratory failure - 2/2 copd exacerbation - nebulizers q4h - solumedrol taper - wean vent as tolerated ID - wbc normal - afebrile - azithromycin for copd exacerbation - f/u cultures GI - start tube feeds Renal - monitor i/o, monitor lytes Heme - monitor cbc Endo - dm - check fs, niss - add lanuts - check a1c, tsh Lines - piv PPx - gi/dvt Full Code Critical Care Time: 50 mins
[2017-11-13] MEDS ORDERED: Insulin GLARGINE(*) 1 UNITS UNIT SUBCUT SCH (09:00)
[2017-11-13] MEDS: Lansoprazole susp Kit 3 MG/ML (30 MG = 10 ML) G TUBE SCH (09:09)
[2017-11-13] MEDS ORDERED: Dexmedetomidine* 400 MCG in NS 0.9% 100 ML* 96 ML IVPB SCH (11:00)
[2017-11-13] MEDS ORDERED: Albuterol/Ipratropium NEB.SOL* Albuterol 2.5 MG/Ipratropium 0.5 MG 3 ML INH SCH ×2 (14:00→16:11)
[2017-11-13] MEDS: Enoxaparin(*) 40 MG/0.4 ML SYR SUBCUT SCH (15:00)
[2017-11-13] MEDS ORDERED: NS 0.9% 1000 ML* 1,000 ML IV SCH (15:45)
[2017-11-13] MEDS: Albuterol/Ipratropium NEB.SOL* Albuterol 2.5 MG/Ipratropium 0.5 MG 3 ML INH SCH ×2 (16:22→22:28)
[2017-11-13] MEDS: Azithromycin IV(*) 500 MG in NS 0.9% 250 ML* 250 ML IVPB SCH (17:08)
[2017-11-13] MEDS ORDERED: Venlafaxine EXT RELEASE CAP* 75 MG PO SCH (20:00)
[2017-11-13] MEDS ORDERED: Atorvastatin* 80 MG TAB PO SCH (21:00)
[2017-11-14] MEDS: Chlorhexidine MOUTHWASH 0.12%* 15 ML UDC TOPICAL SCH ×4 (00:08→11:24)
[2017-11-14] MEDS: Insulin LISPRO* 1 UNITS UNIT SUBCUT SCH ×5 (00:08→20:24)
[2017-11-14] MEDS: Propofol* 100 ML IV SCH ×4 (01:33→11:39)
[2017-11-14] MEDS: Albuterol/Ipratropium NEB.SOL* Albuterol 2.5 MG/Ipratropium 0.5 MG 3 ML INH SCH ×4 (03:21→15:55)
[2017-11-14] MEDS: methylPREDNISolone SOD 40 MG* 1 ML VIAL IV SCH (04:43)
[2017-11-14 06:00] LABS: ABS Basophils 0 10^3/ul (0-0.2); ABS Eosinophils 0 10^3/ul (0-0.6); ABS Lymphocytes 1.6 10^3/ul (1.0-4.8); ABS Monocytes 0.7 10^3/ul (0-0.8); ABS Neutrophils 6.8 10^3/ul (1.5-7.7); ABS Nucleated RBC 0 10^3/ul; Eosinophil % 0.1 % (0-6); Hematocrit 43 % (42-52); Hemoglobin 14.1 g/dl (14.0-18.0); Lymphocyte % 17.7 % (25-47); Mean Corpuscular HGB Conc 33 g/dl (31-36); Mean Corpuscular Hemoglobin 29 pg (27-31); Mean Corpuscular Volume 87 fL (80-94); Mean Platelet Volume 8.3 um3 (7.4-10.4); Nucleated Red Blood Cells % 0.1; Platelet Count 178 10^3/ul (150-450); Red Blood Count 4.94 10^6/ul (4.00-5.40); Red Cell Distribution Width 14 % (10.5-15); White Blood Count 9.2 10^3/ul (3.5-10.8)
[2017-11-14 06:16] LABS: EGFR Non-African American 101.5 (>60)
[2017-11-14] MEDS: Aspirin 81 mg CHEW TAB* 81 MG TAB.CHEW G TUBE SCH (08:18)
[2017-11-14] MEDS: Venlafaxine EXT RELEASE CAP* 75 MG SCH (08:18)
[2017-11-14] MEDS: Clopidogrel TAB* 75 MG SCH (08:18)
[2017-11-14] MEDS: Lansoprazole susp Kit 3 MG/ML (30 MG = 10 ML) G TUBE SCH (08:19)
[2017-11-14] MEDS: Furosemide TAB* 20 MG G TUBE SCH (08:19)
[2017-11-14] MEDS: Insulin GLARGINE(*) 1 UNITS UNIT SUBCUT SCH (08:56)
--- NOTE | 2017-11-14 12:16 | PN ---
Date of Service: 11/14/17 Critical Care Services: 52M with htn, hld, dm, copd presents with AMS 2/2 hypercapnea? 11/14: Improved mental and respiratory status. Possible extubation today. Vital Signs: Temp Pulse Resp BP SpO2 FiO2 98.4 F 64 17 130/84 98 30 11/14/17 11:57 11/14/17 12:02 11/14/17 11:57 11/14/17 12:02 11/14/17 12:02 11/14 11:54 Physical Exam: Gen - intubated and sedated HEENT - ncat, perrl Neck - no jvd CV - s1/s2, no murmur Pulm - +wheezes Abd - soft, nt, + umbilical hernia that is reducible Ext - + LE edema Neuro - unresponisve Fluid Balance (Past 24 Hours): I= O= Net Intake & Output 11/12/17 11/13/17 11/14/17 11/15/17 06:59 06:59 06:59 06:59 Intake Total 2931 3949.8 60 Output Total 1760 2648 910 Balance 1171 1301.8 -850 Weight 162.5 kg Intake: IV Fluids 2139 971 NS (0.9%) 948 NS to Maintain IV Patency 39 23 IVPB 272 280 ABX - AZITHROMYCIN 272 280 Medicated IV 520 1380.8 CC - Dexmedetomidine/ 47.8 Precedex CC - Propofol/Diprivan 520 1333 Oral 0 0 Tube Feeding 718 60 Tube Feeding Flush Amount 500 NG Tube Irrigate Amount 100 Output: NG Tube Drainage Amount 300 G Tube 1100 Urine 125 [place] 1335 1548 910 Labs: Laboratory Results - last 24 hr 11/13/17 11/13/17 11/14/17 12:38 18:29 00:02 WBC RBC Hgb Hct MCV MCH MCHC RDW Plt Count MPV Neut % (Auto) Lymph % (Auto) [place] % (Auto) Eos % (Auto) Baso % (Auto) Absolute Neuts (auto) Absolute Lymphs (auto) Absolute Monos (auto) Absolute Eos (auto) Absolute Basos (auto) Absolute Nucleated RBC Nucleated RBC % Sodium Potassium Chloride Carbon Dioxide Anion Gap BUN Creatinine Est GFR ( Amer) Est GFR (Non-Af Amer) BUN/Creatinine Ratio Glucose POC Glucose (mg/dL) 272 H 236 H 311 H Calcium Magnesium Total Bilirubin Direct Bilirubin Indirect Bilirubin AST ALT Alkaline Phosphatase Total Protein Albumin Globulin Albumin/Globulin Ratio 11/14/17 11/14/17 11/14/17 05:35 05:35 05:38 WBC 9.2 RBC 4.94 Hgb 14.1 Hct 43 MCV 87 MCH 29 MCHC 33 RDW 14 Plt Count 178 MPV 8.3 Neut % (Auto) 74.1 Lymph % (Auto) 17.7 L [place] % (Auto) 7.8 H Eos % (Auto) 0.1 Baso % (Auto) 0.3 Absolute Neuts (auto) 6.8 Absolute Lymphs (auto) 1.6 Absolute Monos (auto) 0.7 Absolute Eos (auto) 0 Absolute Basos (auto) 0 Absolute Nucleated RBC 0 Nucleated RBC % 0.1 Sodium 137 Potassium TNP Chloride 100 L Carbon Dioxide 35 H Anion Gap 2 BUN 21 Creatinine 0.80 Est GFR ( Amer) 122.8 Est GFR (Non-Af Amer) 101.5 BUN/Creatinine Ratio 26.3 H Glucose 287 H POC Glucose (mg/dL) 285 H Calcium 8.3 L Magnesium TNP Total Bilirubin 0.40 Direct Bilirubin TNP Indirect Bilirubin Not Reportable AST TNP ALT 83 H Alkaline Phosphatase 68 Total Protein 6.0 L Albumin 3.4 Globulin 2.6 Albumin/Globulin Ratio 1.3 11/14/17 11/14/17 08:05 09:17 WBC RBC Hgb Hct MCV MCH MCHC RDW Plt Count MPV Neut % (Auto) Lymph % (Auto) [place] % (Auto) Eos % (Auto) Baso % (Auto) Absolute Neuts (auto) Absolute Lymphs (auto) Absolute Monos (auto) Absolute Eos (auto) Absolute Basos (auto) Absolute Nucleated RBC Nucleated RBC % Sodium Potassium TNP TNP Chloride Carbon Dioxide Anion Gap BUN Creatinine Est GFR ( Amer) Est GFR (Non-Af Amer) BUN/Creatinine Ratio Glucose POC Glucose (mg/dL) Calcium Magnesium TNP TNP Total Bilirubin Direct Bilirubin TNP TNP Indirect Bilirubin AST TNP TNP ALT Alkaline Phosphatase Total Protein Albumin Globulin Albumin/Globulin Ratio Studies: Head CT 11/12 IMPRESSION: NO ACUTE INTRACRANIAL PATHOLOGY. Cervical Spine CT 11/12 IMPRESSION: WHILE THERE IS NO OBVIOUS ACUTE OSSEOUS INJURY TO THE CERVICAL SPINE, EVALUATION IS LIMITED DUE TO PATIENT MOTION ARTIFACT PARTICULARLY LIMITING EVALUATION OF C4. CXR 11/12 IMPRESSION: NO ACTIVE CARDIOPULMONARY DISEASE IS NOTED. Impression: 52M with htn, hld, dm, copd presents with AMS Plan: Neuro - AMS - 2/2 hypercapnea? - utox + for benzos - head ct negative - neuro checks CV - htn - add anti-hypertensives prn Pulm - hypercapnic respiratory failure - 2/2 copd exacerbation - nebulizers q4h - solumedrol taper - wean vent as tolerated ID - wbc normal - afebrile - azithromycin for copd exacerbation - f/u cultures GI - - tube feeds Renal - monitor i/o, monitor lytes Heme - monitor cbc Endo - dm - check fs, niss, lantus - a1c 12 Lines - piv PPx - gi/dvt Full Code Critical Care Time: 35 mins
[2017-11-14] MEDS ORDERED: Haloperidol INJ IV/IM* 5 MG/ML AMP IV SLOW PU PRN (15:07)
[2017-11-14] MEDS ORDERED: Nicotine Inhaler* 10 MG AMP INH PRN (15:56)
[2017-11-14] MEDS ORDERED: Mouth Piece, Nicotine* 1 EACH CARTRIDGE INH PRN (15:56)
[2017-11-14] MEDS: ALPRAZolam TAB* 0.5 MG PO PRN (16:39)
[2017-11-14] MEDS: Azithromycin IV(*) 500 MG in NS 0.9% 250 ML* 250 ML IVPB SCH (16:40)
--- NOTE | 2017-11-14 16:41 | RAD ---
Indication: Right shoulder pain. Single view of the right shoulder demonstrates no definite fracture. No definite dislocation is noted. IMPRESSION: Unremarkable single view of the right shoulder.
[2017-11-14] MEDS: Rivaroxaban TAB(*) 20 MG TAB PO SCH (17:43)
[2017-11-14] MEDS: Atorvastatin* 80 MG TAB G TUBE SCH (20:26)
[2017-11-15 05:42] LABS: ABS Basophils 0.1 10^3/ul (0-0.2); ABS Eosinophils 0 10^3/ul (0-0.6); ABS Lymphocytes 2.1 10^3/ul (1.0-4.8); ABS Monocytes 0.7 10^3/ul (0-0.8); ABS Nucleated RBC 0 10^3/ul; Eosinophil % 0.6 % (0-6); Hematocrit 44 % (42-52); Hemoglobin 14.9 g/dl (14.0-18.0); Lymphocyte % 26.1 % (25-47); Mean Corpuscular HGB Conc 34 g/dl (31-36); Mean Corpuscular Hemoglobin 29 pg (27-31); Mean Corpuscular Volume 86 fL (80-94); Nucleated Red Blood Cells % 0; Platelet Count 162 10^3/ul (150-450); Red Blood Count 5.15 10^6/ul (4.00-5.40); Red Cell Distribution Width 14 % (10.5-15); White Blood Count 7.9 10^3/ul (3.5-10.8)
[2017-11-15 05:59] LABS: EGFR Non-African American 114.6 (>60)
[2017-11-15] MEDS: Albuterol/Ipratropium NEB.SOL* Albuterol 2.5 MG/Ipratropium 0.5 MG 3 ML INH SCH ×3 (07:12→08:15)
[2017-11-15] MEDS: Lansoprazole susp Kit 3 MG/ML (30 MG = 10 ML) G TUBE SCH (07:15)
[2017-11-15] MEDS: Insulin LISPRO* 1 UNITS UNIT SUBCUT SCH ×4 (08:12→20:49)
[2017-11-15] MEDS: Furosemide TAB* 20 MG G TUBE SCH (08:13)
[2017-11-15] MEDS: predniSONE TAB* 20 MG PO SCH (08:13)
[2017-11-15] MEDS: Venlafaxine EXT RELEASE CAP* 75 MG SCH (08:13)
[2017-11-15] MEDS: Insulin GLARGINE(*) 1 UNITS UNIT SUBCUT SCH (08:14)
[2017-11-15] MEDS: Aspirin 81 mg CHEW TAB* 81 MG TAB.CHEW G TUBE SCH (08:14)
[2017-11-15] MEDS: Clopidogrel TAB* 75 MG SCH (08:14)
[2017-11-15] MEDS ORDERED: Albuterol/Ipratropium NEB.SOL* Albuterol 2.5 MG/Ipratropium 0.5 MG 3 ML INH PRN (08:23)
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
[2017-11-15] MEDS: Potassium Chlor TAB* 20 MEQ TAB.ER PO SCH ×3 (08:44→17:05)
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
[2017-11-15] MEDS: oxyCODONE TAB* 5 MG TAB PO PRN ×2 (08:45→16:31)
[2017-11-15] MEDS ORDERED: Spiriva Inhaler DEVICE* 1 EACH DEVICE SCH (09:00)
[2017-11-15] MEDS ORDERED: Spiriva Inhaler DEVICE* 1 EACH DEVICE INH SCH (09:00)
[2017-11-15] MEDS ORDERED: methylPREDNISolone SOD 40 MG* 1 ML VIAL IV SCH (09:00)
[2017-11-15] MEDS ORDERED: Pneumococcal *Vac Polyvalent 0.5 ML VIAL IM ONE (11:00)
[2017-11-15] MEDS: Tiotropium CAP.INH* CAP.INH/18 MCG (USE ORDER SET !) INH SCH (12:10)
[2017-11-15] MEDS: ALPRAZolam TAB* 0.5 MG PO PRN (16:31)
[2017-11-15] MEDS: Rivaroxaban TAB(*) 20 MG TAB PO SCH (17:18)
[2017-11-15] MEDS: Atorvastatin* 80 MG TAB G TUBE SCH (20:49)
[2017-11-16] MEDS: oxyCODONE TAB* 5 MG TAB PO PRN ×3 (00:14→21:54)
[2017-11-16 05:13] LABS: ABS Basophils 0.1 10^3/ul (0-0.2); ABS Eosinophils 0.1 10^3/ul (0-0.6); ABS Lymphocytes 2.2 10^3/ul (1.0-4.8); ABS Monocytes 0.7 10^3/ul (0-0.8); ABS Neutrophils 4.4 10^3/ul (1.5-7.7); ABS Nucleated RBC 0 10^3/ul; Eosinophil % 1.5 % (0-6); Hematocrit 45 % (42-52); Hemoglobin 14.7 g/dl (14.0-18.0); Lymphocyte % 29.1 % (25-47); Mean Corpuscular HGB Conc 33 g/dl (31-36); Mean Corpuscular Hemoglobin 28 pg (27-31); Mean Corpuscular Volume 87 fL (80-94); Mean Platelet Volume 8.1 um3 (7.4-10.4); Nucleated Red Blood Cells % 0.1; Platelet Count 156 10^3/ul (150-450); Red Blood Count 5.16 10^6/ul (4.00-5.40); Red Cell Distribution Width 13 % (10.5-15); White Blood Count 7.4 10^3/ul (3.5-10.8)
[2017-11-16 05:30] LABS: EGFR Non-African American 116.5 (>60)
[2017-11-16] MEDS: Tiotropium CAP.INH* CAP.INH/18 MCG (USE ORDER SET !) INH SCH (07:43)
[2017-11-16] MEDS: Insulin GLARGINE(*) 1 UNITS UNIT SUBCUT SCH (07:53)
[2017-11-16] MEDS: Insulin LISPRO* 1 UNITS UNIT SUBCUT SCH ×4 (07:53→21:57)
[2017-11-16] MEDS: Venlafaxine EXT RELEASE CAP* 75 MG SCH (07:55)
[2017-11-16] MEDS: Aspirin 81 mg CHEW TAB* 81 MG TAB.CHEW G TUBE SCH (07:55)
[2017-11-16] MEDS: predniSONE TAB* 20 MG PO SCH (07:55)
[2017-11-16] MEDS: Clopidogrel TAB* 75 MG SCH (07:55)
[2017-11-16] MEDS: Furosemide TAB* 20 MG G TUBE SCH (07:55)
[2017-11-16] MEDS: ALPRAZolam TAB* 0.5 MG PO PRN ×2 (15:07→21:55)
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
[2017-11-16] MEDS ORDERED: Insulin GLARGINE(*) 1 UNITS UNIT SUBCUT SCH (15:35)
[2017-11-16] MEDS ORDERED: Rivaroxaban TAB(*) 20 MG TAB PO ONE (18:04)
[2017-11-16] MEDS: Rivaroxaban TAB(*) 20 MG TAB PO SCH (18:07)
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
[2017-11-16] MEDS: Atorvastatin* 80 MG TAB G TUBE SCH (21:54)
[2017-11-17] MEDS: Tiotropium CAP.INH* CAP.INH/18 MCG (USE ORDER SET !) INH SCH (07:56)
[2017-11-17] MEDS: Insulin LISPRO* 1 UNITS UNIT SUBCUT SCH ×2 (08:13→12:17)
[2017-11-17] MEDS: Venlafaxine EXT RELEASE CAP* 75 MG SCH (08:14)
[2017-11-17] MEDS: Gabapentin CAP(*) 300 MG PO SCH ×2 (08:14→12:18)
[2017-11-17] MEDS: Clopidogrel TAB* 75 MG SCH (08:14)
[2017-11-17] MEDS: predniSONE TAB* 20 MG PO SCH (08:14)
[2017-11-17] MEDS: Aspirin 81 mg CHEW TAB* 81 MG TAB.CHEW G TUBE SCH (08:14)
[2017-11-17] MEDS ORDERED: Venlafaxine EXT RELEASE CAP* 75 MG PO SCH (09:00)
[2017-11-17] MEDS ORDERED: Furosemide TAB* 20 MG PO SCH (09:00)
[2017-11-17 11:31] VITALS: BP 141/63
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
--- NOTE | 2017-11-18 09:47 | DS ---
DISCHARGE SUMMARY: ADDENDUM: Mr. Jarrell decided to leave AMA today when the insurance authorization for his CPAP was pending. I explained to him the risks of not having the CPAP machine prior to his discharge and he still says he cannot wait for the CPAP to arrive. Dominga from case management has been in discussion with Carlos Enrique and his insurance company to get approval; however, it is still pending. We will follow up with Carlos Enrique to be sure that the CPAP gets delivered to his home and if it does not I will be in contact with the DMV and the police office to revoke his drivers' licence. I have explained this to him and he understands. I have also explained the risks of leaving AMA including respiratory failure, cardiac failure, and and he is willing to take these risks. He expresses clear understanding of these risks and agrees to come back to the hospital should he have any confusion or any of his symptoms return. [id number]/CPS #: [id number] JULIANO
== END 2017-11-17 12:52 | disposition left against medical advice (07) | DRG 133 ==
LOC: ED 11:47 → ICU 14:56 → MEDTELE 11-15 08:30
PROVIDERS: ADMIT Internal Medicine; ATTEND Internal Medicine
PROC: 5A1945Z Respiratory Ventilation, 24-96 Consecutive Hours (ICD-10-PCS; 2017-11-12)
PROC: 0BH17EZ Insertion of Endotracheal Airway into Trachea, Via Natural or Artificial Opening (ICD-10-PCS; 2017-11-12)
PROC: 5A09357 Assistance with Respiratory Ventilation, Less than 24 Consecutive Hours, Continuous Positive Airway Pressure (ICD-10-PCS; principal; 2017-11-15)
DX: J96.21 Acute and chronic respiratory failure with hypoxia (principal); R40.2112 Coma scale, eyes open, never, at arrival to emergency department; R40.2342 Coma scale, best motor response, flexion withdrawal, at arrival to emergency department; R40.2222 Coma scale, best verbal response, incomprehensible words, at arrival to emergency department; G93.41 Metabolic encephalopathy; J44.1 Chronic obstructive pulmonary disease with (acute) exacerbation; R45.851 Suicidal ideations; F33.2 Major depressive disorder, recurrent severe without psychotic features; I50.32 Chronic diastolic (congestive) heart failure; Z68.42 Body mass index [BMI] 45.0-49.9, adult; E78.5 Hyperlipidemia, unspecified; J96.22 Acute and chronic respiratory failure with hypercapnia; I11.0 Hypertensive heart disease with heart failure; G47.33 Obstructive sleep apnea (adult) (pediatric); Z53.21 Procedure and treatment not carried out due to patient leaving prior to being seen by health care provider; E11.65 Type 2 diabetes mellitus with hyperglycemia; E66.9 Obesity, unspecified; E11.42 Type 2 diabetes mellitus with diabetic polyneuropathy; Z62.819 Personal history of unspecified abuse in childhood; F40.01 Agoraphobia with panic disorder; I25.10 Atherosclerotic heart disease of native coronary artery without angina pectoris; Z88.8 Allergy status to other drugs, medicaments and biological substances; I25.2 Old myocardial infarction; Z81.8 Family history of other mental and behavioral disorders; Z81.1 Family history of alcohol abuse and dependence; Z23 Encounter for immunization; Z86.718 Personal history of other venous thrombosis and embolism; Z86.711 Personal history of pulmonary embolism; Z72.0 Tobacco use
CPT/HCPCS: 36415; 36600; 70450; 71045; 72125; 80048; 80053; 80076; 80307; 80320; 81003; 81015; 82140; 82803; 83036; 83605; 83735; 84443; 84484; 85025; 87086; 87641; 90670; 90686; 90732; 93005; 94002; 94003; 94640; 94660; 99406; A9270-GY; G0480; J0330; J0456; J0461; J1630; J1650; J1940; J2310; J2543; J2704; J2920; J2930; J7512

== ENCOUNTER 2019-02-15 14:59 | Emergency (ER) | payer OTHER ==
--- NOTE | 2019-02-15 15:15 | ED ---
Shortness of Breath - HPI Summary HPI Summary: The patient is a 53 y/o M arriving by ambulance to [facility] with a chief complaint of increasing SOB over the last 1-2 months with worsening in the last few days. He reports that he has chronic SOB secondary to COPD, and he uses O2 at home all the time, but the SOB has continued to worsen recently. He has used his inhaler as well to mild relief with last use this morning. He also had developed diffuse CP this morning, which was mostly relieved with NTG en route. He additionally endorses BLE edema. He notes he is currently taking Prednisone and has taken it chronically per his PCP. PMHx: DM, CHF, CAD, HLD, NE, COPD. Light every day smoker, no EtOH, no substance use. Medications reviewed. Allergies noted. - History of Current Complaint Time Seen by Provider: 02/15/19 15:04 Hx Obtained From: Patient Onset/Duration: Gradual Onset, Lasting Days, Still Present Current Severity: Moderate Dyspnea At: Rest Aggravating Factors: Nothing Alleviating Factors: Nothing Associated Signs & Symptoms: Chest Pain Unrelated to Cough - mostly resolved with NTG by EMS, Edema - Allergy/Home Medications Allergies/Adverse Reactions: Allergies Allergy/AdvReac Type Severity Reaction Status Date / Time metformin Allergy Itching Verified 11/14/17 12:15 Home Medications: Home Medications Aspirin EC TAB* [Ecotrin EC Low Dose 81 MG*] 81 mg PO DAILY 02/15/19 [History Confirmed 02/15/19] Budesonide/Formote 160/4.5(NF) [Symbicort 160/4.5 (NF)] 2 puff INH BID 02/15/19 [History Confirmed 02/15/19] Gabapentin CAP(*) [Neurontin 400 mg CAP(*)] 800 mg PO QID 02/15/19 [History Confirmed 02/15/19] Hydrocodone Bit/Homatrop Me-Br [Hydrocodone-Homatropine Syrup] 5 - 10 ml PO QID PRN 02/15/19 [History Confirmed 02/15/19] Insulin GLARGINE(*) [Lantus(*)] 50 units SUBCUT QAM 02/15/19 [History Confirmed 02/15/19] Insulin Lispro [Admelog Solostar] 6 unit SUBCUT TID 02/15/19 [History Confirmed 02/15/19] Ipratropium/Albuterol Sulfate [Iprat-Albut 0.5-3(2.5) mg/3 ml] 3 ml INH QID PRN 02/15/19 [History Confirmed 02/15/19] LoraTADine TAB(NF) [Claritin 10 MG TAB(NF)] 10 mg PO DAILY 02/15/19 [History Confirmed 02/15/19] Metoprolol Tartrate TAB* [Lopressor TAB*] 50 mg PO BID 02/15/19 [History Confirmed 02/15/19] Multivitamins/Minerals TAB* [Theragran/minerals TAB*] 1 tab PO DAILY 02/15/19 [ History Confirmed 02/15/19] Nitroglycerin TAB 0.4 MG* 0.4 mg SL Q5M PRN 02/15/19 [History Confirmed 02/15/19 ] Pantoprazole TAB * [Protonix TAB*] 40 mg PO DAILY 02/15/19 [History Confirmed ] Ranitidine TAB (NF) [Zantac TAB (NF)] 150 mg PO BID PRN 02/15/19 [History Confirmed 02/15/19] PMH/Surg Hx/FS Hx/Imm Hx Endocrine/Hematology History: Reports: Hx Diabetes Cardiovascular History: Reports: Hx Congestive Heart Failure, Hx Coronary Artery Disease, Hx Embolism, Hx Hypercholesterolemia, Hx Hypertension, Hx Myocardial Infarction Denies: Hx Pacemaker/ICD Respiratory History: Reports: Hx Chronic Obstructive Pulmonary Disease (COPD) GI History: Reports: Hx Hiatal Hernia History: Denies: Hx Renal Disease Sensory History: Denies: Hx Contacts or Glasses, Hx Hearing Aid Opthamlomology History: Denies: Hx Contacts or Glasses Neurological History: Reports: Hx Nerve Disease Psychiatric History: Reports: Hx Attention Deficit Hyperactivity Disorder, Hx Panic Disorder - Surgical History Surgical History: Yes Surgery Procedure, Year, and Place: CHOLECYSTECTOMY. WENT THROUGH GROIN AREA TO REMOVE GROWTH. TRIED TO PUT HEART STENTS IN AND IT WOULD NOT WORK - Family History Known Family History: Positive: Cardiac Disease, Hypertension, Diabetes - Social History Alcohol Use: None Substance Use Type: Reports: None Hx Tobacco Use: Yes Smoking Status (MU): Light Every Day Tobacco Smoker Type: Cigarettes Amount Used/How Often: 1 pack/day Review of Systems Positive: Other - sleep disturbance secondary to breathing Positive: Chest Pain - mostly resolved Positive: Shortness Of Breath Positive: Edema - BLE All Other Systems Reviewed And Are Negative: Yes Physical Exam - Summary Physical Exam Summary: Appearance: The patient is well-nourished in no acute distress and in no acute pain. Skin: The skin is warm and dry, and skin color reflects adequate perfusion. HEENT: The head is normocephalic and atraumatic. The pupils are equal and reactive. The conjunctivae are clear and without drainage. Nares are patent and without drainage. Mouth reveals moist mucous membranes, and the throat is without erythema and exudate. The external ears are intact. The ear canals are patent and without drainage. The tympanic membranes are intact. Neck: The neck is supple with full range of motion and non-tender. There are no carotid bruits. There is no neck vein distension. Respiratory: Chest is non-tender. There are expiratory wheezes in the lungs with decreased breath sounds. Breath sounds are symmetrical and equal. Cardiovascular: Heart is regular rate and rhythm. There is no murmur or rub auscultated. There is peripheral edema. Pulses are symmetrical and equal. Abdomen: The abdomen is soft and non-tender. There are normal bowel sounds heard in all four quadrants and there is no organomegaly palpated. Musculoskeletal: There is no back tenderness noted. Extremities are non-tender with full range of motion. There is good capillary refill. There is peripheral edema.There is no calf tenderness elicited. Neurological: Patient is alert and oriented to person, place and time. The patient has symmetrical motor strength in all four extremities. Cranial nerves are grossly intact. Deep tendon reflexes are symmetrical and equal in all four extremities. Psychiatric: The patient has an appropriate affect and does not exhibit any anxiety or depression. Triage Information Reviewed: Yes Vital Signs Reviewed: Yes Procedures - Sedation Patient Received Moderate/Deep Sedation with Procedure: No Diagnostics - Laboratory Result Diagrams: 02/15/19 16:07 02/15/19 16:07 Lab Statement: Any lab studies that have been ordered have been reviewed, and results considered in the medical decision making process. - Radiology CXR Radiology Interpretation Completed By: Radiologist Summary of Radiographic Findings: Impression: No acute cardiopulmonary process by radiograph. ED physician has reviewed this imaging report. - EKG 1555 Cardiac Rate: NL - 76 bpm EKG Rhythm: Sinus Rhythm ST Segment: Normal Ectopy: None Summary of EKG Findings: An EKG at 1555 reveals normal sinus rhythm at 76 bpm, normal ST, no ectopy, no STEMI. ED physician has reviewed and interpreted this EKG. Re-Evaluation - Re-Evaluation First Eval Re-Evaluation Time: 16:40 Change: Worse Comment: Patient experiencing burning in the feet. He decline pain medications at this time. Second Eval Re-Evaluation Time: 17:43 Change: Improved Comment: We discussed results and plan for discharge. He is feeling well enough to go home. Course/Dx - Course Course Of Treatment: Mr. Jarrell presented in no acute distress. He was nontoxic in appearance is stable vitals. He improved significantly with the nebulizer treatment and was very insistent on going back out hunting. I do not find any evidence for pneumonia but given his symptomatology him concerned that he is getting a bacterial bronchitis. Given his underlying pulmonary disease I recommended steroids and antibiotics. He has steroids at home already. I wrote a prescription for Z-Pancho for him. - Diagnoses Provider Diagnoses: Bronchitis Discharge ED - Sign-Out/Discharge Documenting (check all that apply): Patient Departure - Patient will be discharged home. - Discharge Plan Condition: Stable Disposition: HOME Prescriptions: Azithromycin TAB* [Zithromax TAB (Z-PANCHO) 250 mg #6 tabs] 2 tab PO .TODAY, THEN 1 DAILY #1 pancho Azithromycin TAB* [Zithromax TAB (Z-PANCHO) 250 mg #6 tabs] 2 tab PO .TODAY, THEN 1 DAILY #1 pancho Patient Education Materials: Acute Bronchitis (ED) Referrals: Milagros Haines MD [Primary Care Provider] - 3 Days Additional Instructions: Please take medications as prescribed. Follow up with your primary care provider in 2-3 days. Return to the emergency department for any new or worsening symptoms. - Billing Disposition and Condition Condition: STABLE Disposition: Home - Attestation Statements Document Initiated by Scribe: Yes Documenting Scribe: Kami Caicedo Provider For Whom Breanne is Documenting (Include Credential): Dr. Danie Cherry MD Scribe Attestation: Kami Cast, scribed for Dr. Danie Cherry MD on 02/15/19 at 2047. Scribe Documentation Reviewed: Yes Provider Attestation: The documentation as recorded by the Kami nguyen accurately reflects the service I personally performed and the decisions made by me, Dr. Danie Cherry MD Status of Scribe Document: Viewed
[2019-02-15 16:25] LABS: ABS Eosinophils 0.1 10^3/ul (0-0.6); ABS Lymphocytes 1.2 10^3/ul (1.0-4.8); ABS Monocytes 0.5 10^3/ul (0-0.8); ABS Neutrophils 3.3 10^3/ul (1.5-7.7); Eosinophil % 2.3 %; Hematocrit 47 % (42-52); Hemoglobin 15.7 g/dL (14.0-18.0); Lymphocyte % 23.6 %; Mean Corpuscular HGB Conc 33 g/dL (31-36); Mean Corpuscular Hemoglobin 30 pg (27-31); Mean Corpuscular Volume 89 fL (80-94); Mean Platelet Volume 8.3 fL (7.4-10.4); Nucleated Red Blood Cells % 0.1; Platelet Count 180 10^3/uL (150-450); Red Cell Distribution Width 12 % (10-15); White Blood Count 5.1 10^3/uL (3.5-10.8)
[2019-02-15 16:43] LABS: INR 0.93 (0.82-1.09)
[2019-02-15 16:51] LABS: Troponin I 0.01 ng/mL (<0.03)
[2019-02-15 17:10] LABS: Albumin/Globulin Ratio 1.2 (1-3); BUN/Creatinine Ratio 8.5 (8-20); C Reactive Protein 8.21 mg/L (<8.01); Calcium 9.1 mg/dL (8.6-10.3); EGFR African American 118.9 (>60); EGFR Non-African American 98.3 (>60); Globulin 3.3 g/dL (2-4); Potassium 4.3 mmol/L (3.5-5.0); Total Bilirubin 0.4 mg/dL (0.2-1.0); Total Protein 7.3 g/dL (6.4-8.9)
[2019-02-15 18:28] VITALS: BP 0/0
== END 2019-02-15 18:27 | disposition home or self-care (01) ==
LOC: ED 14:59
DX: J44.9 Chronic obstructive pulmonary disease, unspecified (principal); Z99.81 Dependence on supplemental oxygen; E11.9 Type 2 diabetes mellitus without complications; Z79.4 Long term (current) use of insulin; E78.00 Pure hypercholesterolemia, unspecified; I25.10 Atherosclerotic heart disease of native coronary artery without angina pectoris; I11.0 Hypertensive heart disease with heart failure; I25.2 Old myocardial infarction; Z79.82 Long term (current) use of aspirin; F90.9 Attention-deficit hyperactivity disorder, unspecified type; F41.0 Panic disorder [episodic paroxysmal anxiety]; Z88.8 Allergy status to other drugs, medicaments and biological substances; F17.210 Nicotine dependence, cigarettes, uncomplicated
CPT/HCPCS: 36415; 71045; 80053; 83605; 83880; 84484; 85025; 85610; 86140; 87040; 93005; 99283

== ENCOUNTER 2020-03-25 20:24 | Inpatient (IN) ==
[2020-03-25] MEDS ORDERED: Morphine 10 MG/ML VIAL (1 ml) IV ONE (20:37)
[2020-03-25] MEDS ORDERED: ceFAZolin 1 GM ADVAN 1 GM in NS 0.9% 50 ML 50 ML IVPB ONE (20:37)
[2020-03-25] MEDS ORDERED: NS 0.9% 1000 ml BAG 1,000 ML IV ONE (20:37)
[2020-03-25 21:13] LABS: ABS Lymphocytes 1.5 10^3/ul (1.0-4.8); ABS Monocytes 1.1 10^3/ul (0-0.8); ABS Neutrophils 8.7 10^3/ul (1.5-7.7); Eosinophil % 0.2 %; Hematocrit 43 % (42-52); Hemoglobin 14.7 g/dL (14.0-18.0); Mean Corpuscular HGB Conc 34 g/dL (31-36); Mean Corpuscular Hemoglobin 30 pg (27-31); Mean Corpuscular Volume 87 fL (80-94); Mean Platelet Volume 7.8 fL (7.4-10.4); Platelet Count 300 10^3/uL (150-450); Red Blood Count 4.97 10^6 /uL (4.18-5.48); Red Cell Distribution Width 13 % (10-15); White Blood Count 11.4 10^3/uL (3.5-10.8)
[2020-03-25 21:23] LABS: Activated Partial Thrombo Time 31.6 seconds (26.0-38.0); INR 1.24 (0.82-1.09)
[2020-03-25 21:31] LABS: Albumin 3.7 g/dL (3.2-5.2); Albumin/Globulin Ratio 0.9 (1-3); C Reactive Protein 389.8 mg/L (<8.01); Calcium 9.5 mg/dL (8.6-10.3); EGFR African American 121.9 (>60); EGFR Non-African American 100.7 (>60); Globulin 3.9 g/dL (2-4); Total Bilirubin 0.5 mg/dL (0.2-1.0); Total Protein 7.6 g/dL (6.4-8.9)
[2020-03-25 21:33] LABS: Troponin I 0.02 ng/mL (<0.03)
[2020-03-25] MEDS ORDERED: Iodixanol (CONTRAST) 320 MG/ML 100 ML SDV IV ONE (22:13)
[2020-03-26] MEDS ORDERED: Dextrose 50% Syringe 50 ml 25 GM/50 ML SYRINGE IV PUSH PRN (00:20)
[2020-03-26 02:21] LABS: Urine Appearance Clear; Urine Color Yellow
[2020-03-26 02:23] LABS: Urine Ketones 1+ (Negative); Urine Protein 1+(30 mg/dL) (Negative); Urine Urobilinogen Negative (Negative)
[2020-03-26 02:24] LABS: Urine Bilirubin Negative (Negative); Urine Blood Negative (Negative); Urine Nitrite Negative (Negative)
[2020-03-26 02:25] LABS: Urine Glucose 3+(>=500 mg/dL) (Negative)
[2020-03-26 02:50] LABS: Urine Bacteria Absent (Absent); Urine Red Blood Cell Trace(0-2/hpf) (Absent); Urine Squamous Epithelial Cell Present (Absent); Urine White Blood Cell Trace(0-5/hpf) (Absent)
[2020-03-26] MEDS ORDERED: Albuterol HFA INHALER 8 gm MDI INH PRN (04:40)
[2020-03-26] MEDS ORDERED: ceFAZolin 1 GM ADVAN 1 GM in NS 0.9% 50 ML 50 ML IVPB SCH (05:00)
[2020-03-26 07:11] LABS: Hematocrit 41 % (42-52); Hemoglobin 13.8 g/dL (14.0-18.0); Mean Corpuscular HGB Conc 34 g/dL (31-36); Mean Corpuscular Hemoglobin 30 pg (27-31); Mean Corpuscular Volume 88 fL (80-94); Mean Platelet Volume 7.7 fL (7.4-10.4); Platelet Count 275 10^3/uL (150-450); Red Blood Count 4.65 10^6 /uL (4.18-5.48); Red Cell Distribution Width 12 % (10-15); White Blood Count 12.5 10^3/uL (3.5-10.8)
[2020-03-26 07:34] LABS: BUN/Creatinine Ratio 10.5 (8-20); EGFR Non-African American 82.6 (>60); Potassium 4.6 mmol/L (3.5-5.0)
[2020-03-26 07:42] LABS: ABS Basophils 0.1 10^3/ul (0-0.2); ABS Lymphocytes 1.3 10^3/ul (1.0-4.8); ABS Monocytes 1.3 10^3/ul (0-0.8); ABS Neutrophils 9.8 10^3/ul (1.5-7.7); Eosinophil % 0.2 %; Lymphocyte % 10.5 %
[2020-03-26 08:09] LABS: Glucose Confirmatory 403 mg/dL (70-100)
[2020-03-26] MEDS: SPIRIVA Respimat (tiotropium) 2.5 mcg/inh Inhaler INH SCH (08:12)
[2020-03-26] MEDS: Mometasone/Formoter 200/5 MDI INH SCH ×2 (08:12→20:53)
[2020-03-26] MEDS ORDERED: Insulin GLARGINE 100 un/ml 10 ml VIAL SUBCUT SCH ×2 (09:00→10:00)
[2020-03-26] MEDS ORDERED: Budesonide/Formote 160/4.5(NF) MDI INH SCH (09:00)
[2020-03-26] MEDS ORDERED: Venlafaxine XR 75 mg PO SCH ×3 (09:00)
[2020-03-26] MEDS: Aspirin EC 81 mg TAB.EC (enteric coated) PO SCH (09:10)
[2020-03-26] MEDS: Potassium Chlor 20 meq TAB.ER PO SCH (09:10)
[2020-03-26] MEDS: Venlafaxine XR 75 mg PO SCH (09:11)
[2020-03-26] MEDS ORDERED: Nicotine Lozenge mini 2 MG LOZNG.MINI MT PRN (09:25)
[2020-03-26] MEDS: NS 0.9% 1000 ml BAG 1,000 ML IV SCH ×2 (10:42→21:20)
[2020-03-26] MEDS: Cefepime 2 GM in Dextrose 2 GM/50 ML BAG IV SCH ×2 (10:46→23:51)
[2020-03-27] MEDS: NS 0.9% 1000 ml BAG 1,000 ML IV SCH ×2 (06:54→21:19)
[2020-03-27 07:09] LABS: ABS Eosinophils 0.1 10^3/ul (0-0.6); ABS Lymphocytes 1.1 10^3/ul (1.0-4.8); ABS Monocytes 0.9 10^3/ul (0-0.8); ABS Neutrophils 6.9 10^3/ul (1.5-7.7); Eosinophil % 1.3 %; Hematocrit 38 % (42-52); Lymphocyte % 11.9 %; Mean Corpuscular HGB Conc 34 g/dL (31-36); Mean Corpuscular Hemoglobin 30 pg (27-31); Mean Corpuscular Volume 87 fL (80-94); Mean Platelet Volume 7.3 fL (7.4-10.4); Platelet Count 227 10^3/uL (150-450); Red Blood Count 4.34 10^6 /uL (4.18-5.48); Red Cell Distribution Width 12 % (10-15)
[2020-03-27] MEDS: SPIRIVA Respimat (tiotropium) 2.5 mcg/inh Inhaler INH SCH (07:12)
[2020-03-27] MEDS: Mometasone/Formoter 200/5 MDI INH SCH ×2 (07:12→21:38)
[2020-03-27 07:25] LABS: BUN/Creatinine Ratio 18.8 (8-20); C Reactive Protein 366.45 mg/L (<8.01); Calcium 8.5 mg/dL (8.6-10.3); EGFR African American 144.6 (>60); EGFR Non-African American 119.5 (>60)
[2020-03-27] MEDS ORDERED: Insulin GLARGINE 100 un/ml 10 ml VIAL SUBCUT ONE (08:49)
[2020-03-27] MEDS: Nicotine PATCH 21 MG/24 HR PATCH TRANSDERM SCH (09:31)
[2020-03-27] MEDS ORDERED: Perflutren Lipid Microsphere 3 ML VIAL ONE (09:31)
[2020-03-27] MEDS: Aspirin EC 81 mg TAB.EC (enteric coated) PO SCH (09:33)
[2020-03-27] MEDS: Insulin GLARGINE 100 un/ml 10 ml VIAL SUBCUT SCH (09:33)
[2020-03-27] MEDS: Potassium Chlor 20 meq TAB.ER PO SCH (09:33)
[2020-03-27] MEDS: Venlafaxine XR 75 mg PO SCH (09:34)
[2020-03-27] MEDS ORDERED: Buffered Lidocaine 1% SYRIN 1 ml INTRADERM ONE (11:10)
[2020-03-27] MEDS ORDERED: Propofol 10 MG/ML 20 ML BTL ONE (11:37)
[2020-03-27] MEDS ORDERED: Etomidate 20 mg/10 ml 2 MG/ML 10 ml VIAL ONE (11:39)
[2020-03-27] MEDS ORDERED: Succinylcholine 200 mg VIAL 20 mg/ml 10 ml VIAL (200 mg) ONE (11:39)
[2020-03-27] MEDS ORDERED: fentaNYL 100 mcg/2 ml 50 MCG/ML VIAL ONE (11:48)
[2020-03-27] MEDS ORDERED: Bupivacaine 0.25% SDV 30 ML ONE (11:49)
[2020-03-27] MEDS ORDERED: Bupivacaine 0.5% SDV PF 30ML VIAL ONE (11:50)
[2020-03-27] MEDS ORDERED: Glycopyrrolate IV 0.2 MG/ML 1 ML VIAL ONE (11:56)
[2020-03-27] MEDS ORDERED: Rocuronium 50 mg VIAL 10 mg/ml 5 ml VIAL (50 mg) ONE (12:21)
[2020-03-27] MEDS ORDERED: Acetaminophen IV 1 GM/100ML 1,000 MG/100 ML VIAL IVPB ONE (13:44)
[2020-03-27] MEDS ORDERED: Dextrose 50% Syringe 50 ml 25 GM/50 ML SYRINGE IV PUSH PRN (14:09)
[2020-03-27] MEDS: Cefepime 2 GM in Dextrose 2 GM/50 ML BAG IV SCH (14:15)
[2020-03-27] MEDS ORDERED: Acetaminophen IV 1 GM/100ML 100 ML ONE (14:39)
[2020-03-27] MEDS ORDERED: ceFAZolin 500 MG VIAL 500 MG in NS 0.9% 50 ML 50 ML IVPB SCH (16:00)
[2020-03-27] MEDS ORDERED: Ondansetron 4 mg VIAL 2 MG/ML 2 ml VIAL IV PRN (18:32)
[2020-03-27] MEDS ORDERED: Ondansetron 4 mg VIAL 2 MG/ML 2 ml VIAL ONE (18:34)
[2020-03-27] MEDS: ceFAZolin 1 GM Q8H (ADVAN) IVPB SCH (21:19)
[2020-03-28] MEDS: ceFAZolin 1 GM Q8H (ADVAN) IVPB SCH ×3 (01:09→18:05)
[2020-03-28] MEDS: Potassium Chlor 20 meq TAB.ER PO SCH (08:09)
[2020-03-28] MEDS: Aspirin EC 81 mg TAB.EC (enteric coated) PO SCH (08:11)
[2020-03-28] MEDS: Venlafaxine XR 75 mg PO SCH (08:11)
[2020-03-28] MEDS: Mometasone/Formoter 200/5 MDI INH SCH ×2 (08:40→20:26)
[2020-03-28] MEDS: SPIRIVA Respimat (tiotropium) 2.5 mcg/inh Inhaler INH SCH (08:41)
[2020-03-28] MEDS: Nicotine PATCH 21 MG/24 HR PATCH TRANSDERM SCH (10:56)
[2020-03-28 12:01] LABS: ABS Basophils 0.1 10^3/ul (0-0.2); ABS Eosinophils 0.2 10^3/ul (0-0.6); ABS Monocytes 0.6 10^3/ul (0-0.8); ABS Neutrophils 5.2 10^3/ul (1.5-7.7); Hematocrit 38 % (42-52); Hemoglobin 12.6 g/dL (14.0-18.0); Lymphocyte % 13.7 %; Mean Corpuscular HGB Conc 33 g/dL (31-36); Mean Corpuscular Hemoglobin 30 pg (27-31); Mean Corpuscular Volume 89 fL (80-94); Mean Platelet Volume 7.7 fL (7.4-10.4); Platelet Count 279 10^3/uL (150-450); Red Blood Count 4.26 10^6 /uL (4.18-5.48); Red Cell Distribution Width 13 % (10-15); White Blood Count 7.1 10^3/uL (3.5-10.8)
[2020-03-28 12:16] LABS: INR 1.19 (0.82-1.09)
[2020-03-28 12:19] LABS: Glucose Confirmatory 444 mg/dL (70-100)
[2020-03-28 12:22] LABS: Albumin 2.9 g/dL (3.2-5.2); Albumin/Globulin Ratio 0.8 (1-3); BUN/Creatinine Ratio 16.3 (8-20); Calcium 8.6 mg/dL (8.6-10.3); EGFR African American 112.1 (>60); EGFR Non-African American 92.7 (>60); Globulin 3.7 g/dL (2-4); Potassium 4.6 mmol/L (3.5-5.0); Total Bilirubin 0.3 mg/dL (0.2-1.0); Total Protein 6.6 g/dL (6.4-8.9)
[2020-03-28] MEDS: Insulin GLARGINE 100 un/ml 10 ml VIAL SUBCUT SCH (13:30)
[2020-03-29] MEDS: ceFAZolin 1 GM Q8H (ADVAN) IVPB SCH ×3 (02:17→17:06)
[2020-03-29 06:36] LABS: C Reactive Protein 166.11 mg/L (<8.01); HDL Cholesterol 19.2 mg/dL
[2020-03-29] MEDS: Potassium Chlor 20 meq TAB.ER PO SCH (08:30)
[2020-03-29] MEDS: Venlafaxine XR 75 mg PO SCH (08:30)
[2020-03-29] MEDS: Nicotine PATCH 21 MG/24 HR PATCH TRANSDERM SCH ×2 (08:30→08:38)
[2020-03-29] MEDS: Aspirin EC 81 mg TAB.EC (enteric coated) PO SCH (08:30)
[2020-03-29 09:31] LABS: Glucose Confirmatory 475 mg/dL (70-100)
[2020-03-29] MEDS: Insulin GLARGINE 100 un/ml 10 ml VIAL SUBCUT SCH (10:44)
[2020-03-29] MEDS: Mometasone/Formoter 200/5 MDI INH SCH ×2 (11:05→20:28)
[2020-03-29] MEDS: SPIRIVA Respimat (tiotropium) 2.5 mcg/inh Inhaler INH SCH (11:05)
[2020-03-29 13:10] LABS: Glucose Confirmatory 423 mg/dL (70-100)
[2020-03-29] MEDS ORDERED: Insulin GLARGINE 100 un/ml 10 ml VIAL SUBCUT ONE (17:56)
[2020-03-30] MEDS: ceFAZolin 1 GM Q8H (ADVAN) IVPB SCH ×2 (03:00→09:41)
[2020-03-30] MEDS: SPIRIVA Respimat (tiotropium) 2.5 mcg/inh Inhaler INH SCH (07:33)
[2020-03-30] MEDS: Mometasone/Formoter 200/5 MDI INH SCH (07:33)
[2020-03-30] MEDS: Nicotine PATCH 21 MG/24 HR PATCH TRANSDERM SCH (08:32)
[2020-03-30] MEDS: Aspirin EC 81 mg TAB.EC (enteric coated) PO SCH (08:33)
[2020-03-30] MEDS: Potassium Chlor 20 meq TAB.ER PO SCH (08:34)
[2020-03-30] MEDS: Venlafaxine XR 75 mg PO SCH (08:38)
[2020-03-30 08:50] LABS: ABS Eosinophils 0.3 10^3/ul (0-0.6); ABS Lymphocytes 1.3 10^3/ul (1.0-4.8); ABS Monocytes 0.6 10^3/ul (0-0.8); ABS Neutrophils 3.3 10^3/ul (1.5-7.7); Eosinophil % 5.6 %; Hematocrit 37 % (42-52); Hemoglobin 12.4 g/dL (14.0-18.0); Lymphocyte % 23.2 %; Mean Corpuscular HGB Conc 34 g/dL (31-36); Mean Corpuscular Hemoglobin 30 pg (27-31); Mean Corpuscular Volume 88 fL (80-94); Mean Platelet Volume 7.7 fL (7.4-10.4); Nucleated Red Blood Cells % 0.1; Platelet Count 306 10^3/uL (150-450); Red Blood Count 4.15 10^6 /uL (4.18-5.48); Red Cell Distribution Width 13 % (10-15); White Blood Count 5.5 10^3/uL (3.5-10.8)
[2020-03-30] MEDS ORDERED: Insulin GLARGINE 100 un/ml 10 ml VIAL SUBCUT SCH (09:00)
[2020-03-30 09:39] LABS: BUN/Creatinine Ratio 18.8 (8-20); C Reactive Protein 97.32 mg/L (<8.01); Calcium 8.8 mg/dL (8.6-10.3); EGFR African American 121.9 (>60); EGFR Non-African American 100.7 (>60); Potassium 4.3 mmol/L (3.5-5.0)
[2020-03-30 13:02] VITALS: BP 128/64
[2020-03-30 13:03] LABS: Glucose Confirmatory 404 mg/dL (70-100)
== END 2020-03-30 13:30 | disposition home or self-care (01) | DRG 710 ==
LOC: ED 20:24 → MEDTELE 03-26 00:14 → ED 03-26 03:40 → MEDTELE 03-28 00:17
PROVIDERS: ADMIT Internal Medicine; ATTEND Internal Medicine

== ENCOUNTER 2020-12-22 15:18 | Inpatient (IN) ==
[2020-12-22 15:49] LABS: PCO2 Arterial 53 mmHg (35-45); PO2 Arterial 200 mmHg (80-100)
[2020-12-22] MEDS ORDERED: methylPREDNISolone 125 mg 2 ML VIAL IV ONE (16:15)
[2020-12-22] MEDS ORDERED: Albuterol 2.5mg/3 ml (0.083%) NEB.SOLN INH ONE (16:15)
[2020-12-22 16:26] LABS: ABS Eosinophils 0.2 10^3/ul (0-0.6); ABS Lymphocytes 1.7 10^3/ul (1.0-4.8); ABS Monocytes 0.5 10^3/ul (0-0.8); ABS Neutrophils 5.5 10^3/ul (1.5-7.7); Eosinophil % 2.2 %; Hematocrit 50 % (42-52); Hemoglobin 16.7 g/dL (14.0-18.0); Lymphocyte % 21.7 %; Mean Corpuscular HGB Conc 33 g/dL (31-36); Mean Corpuscular Hemoglobin 30 pg (27-31); Mean Corpuscular Volume 88 fL (80-94); Mean Platelet Volume 8.5 fL (7.4-10.4); Nucleated Red Blood Cells % 0.1; Platelet Count 205 10^3/uL (150-450); Red Blood Count 5.67 10^6 /uL (4.18-5.48); Red Cell Distribution Width 13 % (10-15); White Blood Count 7.9 10^3/uL (3.5-10.8)
[2020-12-22 16:34] LABS: Urine Appearance Clear; Urine Bilirubin Negative (Negative); Urine Blood Negative (Negative); Urine Color Straw; Urine Glucose 3+(>=500 mg/dL) (Negative); Urine Ketones Negative (Negative); Urine Nitrite Negative (Negative); Urine Protein Negative (Negative); Urine Specific Gravity 1.031 (1.002-1.030); Urine Urobilinogen Negative (Negative)
[2020-12-22 16:39] LABS: Troponin I 0.01 ng/mL (<0.03)
[2020-12-22 16:44] LABS: Rapid COVID-19 Molecular Undetected (Undetected)
[2020-12-22 16:44] LABS: Activated Partial Thrombo Time 29.1 seconds (26.0-38.0); INR 0.96 (0.86-1.15)
[2020-12-22 16:48] LABS: ALT 29 U/L (7-52); Albumin 4.1 g/dL (3.2-5.2); Albumin/Globulin Ratio 1.3 (1-3); Alkaline Phosphatase 68 U/L (35-149); Blood Urea Nitrogen 16 mg/dL (6-24); CO2 Carbon Dioxide 32 mmol/L (22-32); Calcium 9.1 mg/dL (8.6-10.3); Chloride 98 mmol/L (101-111); Creatine Kinase 58 U/L (10-223); Globulin 3.2 g/dL (2-4); Glucose 282 mg/dL (70-100); Sodium 138 mmol/L (135-145); Total Protein 7.3 g/dL (6.4-8.9)
[2020-12-22] MEDS ORDERED: Lactated Ringers 1000 ml BAG 1,000 ML IV ONE ×2 (16:49→19:21)
[2020-12-22] MEDS ORDERED: Albuterol HFA INHALER 8 gm MDI INH ONE ×2 (17:19→17:27)
[2020-12-22] MEDS ORDERED: methylPREDNISolone 125 mg 2 ML VIAL ONE (17:19)
[2020-12-22 18:16] LABS: Anion Gap 8 mmol/L (2-11)
[2020-12-22] MEDS ORDERED: Dextrose 50% Syringe 50 ml 25 GM/50 ML SYRINGE IV PUSH PRN ×2 (19:21→19:50)
[2020-12-22] MEDS ORDERED: HYDROCODONE HOMATROPINE PO PRN (19:56)
[2020-12-22] MEDS: Albuterol HFA INHALER 8 gm MDI INH SCH (20:57)
[2020-12-22] MEDS ORDERED: Mometasone/Formoter 200/5 MDI INH SCH (21:00)
[2020-12-22] MEDS: methylPREDNISolone SOD 40 mg/ml 1 ml VIAL IV SCH (21:17)
[2020-12-22 21:47] LABS: Potassium Redraw 4.6 mmol/L (3.5-5.0)
[2020-12-22 21:49] LABS: Troponin I 0.01 ng/mL (<0.03)
[2020-12-22 23:17] LABS: Influenza A Molecular Negative (Negative)
[2020-12-23] MEDS: Albuterol HFA INHALER 8 gm MDI INH SCH ×6 (03:08→20:17)
[2020-12-23 06:18] LABS: ABS Lymphocytes 0.8 10^3/ul (1.0-4.8); ABS Monocytes 0.1 10^3/ul (0-0.8); ABS Neutrophils 9.9 10^3/ul (1.5-7.7); Hematocrit 48 % (42-52); Hemoglobin 15.9 g/dL (14.0-18.0); Mean Corpuscular HGB Conc 34 g/dL (31-36); Mean Corpuscular Hemoglobin 30 pg (27-31); Mean Corpuscular Volume 89 fL (80-94); Mean Platelet Volume 8.4 fL (7.4-10.4); Platelet Count 194 10^3/uL (150-450); Red Blood Count 5.35 10^6 /uL (4.18-5.48); Red Cell Distribution Width 13 % (10-15); White Blood Count 10.8 10^3/uL (3.5-10.8)
[2020-12-23 06:27] LABS: INR 0.97 (0.86-1.15)
[2020-12-23 06:32] LABS: Calcium 9.2 mg/dL (8.6-10.3)
[2020-12-23 06:53] LABS: Potassium 4.7 mmol/L (3.5-5.0)
[2020-12-23] MEDS: Mometasone/Formoter 200/5 MDI INH SCH ×2 (07:21→21:56)
[2020-12-23] MEDS: SPIRIVA Respimat (tiotropium) 2.5 mcg/inh Inhaler INH SCH (07:21)
[2020-12-23] MEDS: Potassium Chlor 20 meq TAB.ER PO SCH (09:00)
[2020-12-23] MEDS: methylPREDNISolone SOD 40 mg/ml 1 ml VIAL IV SCH ×2 (09:01→20:13)
[2020-12-23] MEDS: Insulin GLARGINE 100 un/ml 10 ml VIAL SUBCUT SCH (09:11)
[2020-12-23] MEDS: Venlafaxine XR 75 mg PO SCH (09:12)
[2020-12-24] MEDS: Albuterol HFA INHALER 8 gm MDI INH SCH ×6 (01:45→19:30)
[2020-12-24 03:10] LABS: ABS Lymphocytes 0.7 10^3/ul (1.0-4.8); ABS Monocytes 0.2 10^3/ul (0-0.8); ABS Neutrophils 10.1 10^3/ul (1.5-7.7); Hematocrit 47 % (42-52); Hemoglobin 15.2 g/dL (14.0-18.0); Lymphocyte % 6.3 %; Mean Corpuscular HGB Conc 33 g/dL (31-36); Mean Corpuscular Hemoglobin 29 pg (27-31); Mean Corpuscular Volume 88 fL (80-94); Platelet Count 186 10^3/uL (150-450); Red Blood Count 5.28 10^6 /uL (4.18-5.48); Red Cell Distribution Width 13 % (10-15)
[2020-12-24 03:19] LABS: PCO2 Arterial 70 mmHg (35-45); PO2 Arterial 80 mmHg (80-100)
[2020-12-24 03:24] LABS: Albumin 3.9 g/dL (3.2-5.2); Albumin/Globulin Ratio 1.3 (1-3); Calcium 8.8 mg/dL (8.6-10.3); Globulin 2.9 g/dL (2-4); Total Bilirubin 0.3 mg/dL (0.2-1.0); Total Protein 6.8 g/dL (6.4-8.9)
[2020-12-24 03:25] LABS: Potassium 5.4 mmol/L (3.5-5.0)
[2020-12-24] MEDS ORDERED: Naloxone 0.4 mg VIAL 0.4 mg/ml 1 ml VIAL ONE (05:07)
[2020-12-24 05:24] LABS: PCO2 Arterial 71 mmHg (35-45); PO2 Arterial 118 mmHg (80-100)
[2020-12-24 05:25] LABS: ABS Basophils 0.1 10^3/ul (0-0.2); ABS Lymphocytes 0.8 10^3/ul (1.0-4.8); ABS Monocytes 0.4 10^3/ul (0-0.8); ABS Neutrophils 10.7 10^3/ul (1.5-7.7); Hematocrit 48 % (42-52); Hemoglobin 15.9 g/dL (14.0-18.0); Lymphocyte % 6.9 %; Mean Corpuscular HGB Conc 33 g/dL (31-36); Mean Corpuscular Hemoglobin 30 pg (27-31); Mean Corpuscular Volume 88 fL (80-94); Mean Platelet Volume 8.4 fL (7.4-10.4); Platelet Count 194 10^3/uL (150-450); Red Blood Count 5.39 10^6 /uL (4.18-5.48); Red Cell Distribution Width 13 % (10-15); White Blood Count 11.9 10^3/uL (3.5-10.8)
[2020-12-24 05:45] LABS: Potassium 5.5 mmol/L (3.5-5.0)
[2020-12-24] MEDS: SPIRIVA Respimat (tiotropium) 2.5 mcg/inh Inhaler INH SCH (07:51)
[2020-12-24] MEDS: Mometasone/Formoter 200/5 MDI INH SCH ×2 (07:51→19:30)
[2020-12-24] MEDS: Venlafaxine XR 75 mg PO SCH (08:15)
[2020-12-24] MEDS: Potassium Chlor 20 meq TAB.ER PO SCH (08:16)
[2020-12-24] MEDS: Insulin GLARGINE 100 un/ml 10 ml VIAL SUBCUT SCH (08:16)
[2020-12-24] MEDS: methylPREDNISolone SOD 40 mg/ml 1 ml VIAL IV SCH ×2 (08:17→20:43)
[2020-12-24] MEDS ORDERED: Al Hydrox/Mg Hydrox/Simet LIQ 30 ML UDC ONE (11:15)
[2020-12-24] MEDS ORDERED: Perflutren Lipid Microsphere 3 ML VIAL ONE (11:25)
[2020-12-24] MEDS ORDERED: Al Hydrox/Mg Hydrox/Simet LIQ 30 ML UDC PO PRN (11:32)
[2020-12-24 12:26] LABS: PCO2 Arterial 64 mmHg (35-45); PO2 Arterial 103 mmHg (80-100)
[2020-12-24] MEDS ORDERED: Ondansetron 4 mg VIAL 2 MG/ML 2 ml VIAL IV PRN (12:45)
[2020-12-24] MEDS: Azithromycin 500 mg/250 ml NS 500 MG/250 ML BAG IVPB SCH (13:19)
[2020-12-25] MEDS: Albuterol HFA INHALER 8 gm MDI INH SCH ×7 (00:19→23:32)
[2020-12-25] MEDS: SPIRIVA Respimat (tiotropium) 2.5 mcg/inh Inhaler INH SCH (07:23)
[2020-12-25] MEDS: Mometasone/Formoter 200/5 MDI INH SCH ×2 (07:23→19:03)
[2020-12-25 08:19] LABS: Influenza B Molecular Negative (Negative)
[2020-12-25] MEDS: methylPREDNISolone SOD 40 mg/ml 1 ml VIAL IV SCH (09:07)
[2020-12-25] MEDS: Insulin GLARGINE 100 un/ml 10 ml VIAL SUBCUT SCH (09:08)
[2020-12-25] MEDS: Potassium Chlor 20 meq TAB.ER PO SCH (09:09)
[2020-12-25] MEDS: Venlafaxine XR 75 mg PO SCH (09:09)
[2020-12-25] MEDS: Azithromycin 500 mg/250 ml NS 500 MG/250 ML BAG IVPB SCH (12:51)
[2020-12-26] MEDS: Albuterol HFA INHALER 8 gm MDI INH SCH ×5 (05:38→21:06)
[2020-12-26] MEDS: SPIRIVA Respimat (tiotropium) 2.5 mcg/inh Inhaler INH SCH (08:39)
[2020-12-26] MEDS: Mometasone/Formoter 200/5 MDI INH SCH ×2 (08:40→21:05)
[2020-12-26] MEDS ORDERED: methylPREDNISolone SOD 40 mg/ml 1 ml VIAL IV SCH (09:00)
[2020-12-26] MEDS: Insulin GLARGINE 100 un/ml 10 ml VIAL SUBCUT SCH (09:30)
[2020-12-26] MEDS: Venlafaxine XR 75 mg PO SCH (09:31)
[2020-12-26] MEDS: Potassium Chlor 20 meq TAB.ER PO SCH (09:31)
[2020-12-26] MEDS: Azithromycin 500 mg/250 ml NS 500 MG/250 ML BAG IVPB SCH (11:53)
[2020-12-27] MEDS: Albuterol HFA INHALER 8 gm MDI INH SCH ×4 (05:37→07:43)
[2020-12-27] MEDS: SPIRIVA Respimat (tiotropium) 2.5 mcg/inh Inhaler INH SCH (07:43)
[2020-12-27] MEDS: Mometasone/Formoter 200/5 MDI INH SCH ×2 (07:44→20:24)
[2020-12-27] MEDS: Potassium Chlor 20 meq TAB.ER PO SCH (08:16)
[2020-12-27] MEDS: Venlafaxine XR 75 mg PO SCH (08:18)
[2020-12-27] MEDS: Insulin GLARGINE 100 un/ml 10 ml VIAL SUBCUT SCH (09:59)
[2020-12-27] MEDS: Azithromycin 500 mg/250 ml NS 500 MG/250 ML BAG IVPB SCH (12:22)
[2020-12-27 14:32] LABS: Anion Gap 3 mmol/L (2-11); Blood Urea Nitrogen 23 mg/dL (6-24); CO2 Carbon Dioxide 40 mmol/L (22-32); Calcium 9.3 mg/dL (8.6-10.3); Chloride 94 mmol/L (101-111); Glucose 156 mg/dL (70-100); Potassium 4.4 mmol/L (3.5-5.0); Sodium 137 mmol/L (135-145)
[2020-12-27 15:55] LABS: Lipase < 10 U/L (11.0-82.0)
[2020-12-27] MEDS: Albuterol HFA INHALER 8 gm MDI INH PRN (20:23)
[2020-12-28 06:14] LABS: Hematocrit 47 % (42-52); Hemoglobin 15.5 g/dL (14.0-18.0); Mean Corpuscular HGB Conc 33 g/dL (31-36); Mean Corpuscular Hemoglobin 29 pg (27-31); Mean Corpuscular Volume 88 fL (80-94); Mean Platelet Volume 8.2 fL (7.4-10.4); Platelet Count 195 10^3/uL (150-450); Red Cell Distribution Width 13 % (10-15); White Blood Count 10.2 10^3/uL (3.5-10.8)
[2020-12-28 06:34] LABS: Calcium 8.7 mg/dL (8.6-10.3); Magnesium 2.3 mg/dL (1.9-2.7); Potassium 3.8 mmol/L (3.5-5.0)
[2020-12-28] MEDS: Mometasone/Formoter 200/5 MDI INH SCH ×2 (07:53→20:36)
[2020-12-28] MEDS: SPIRIVA Respimat (tiotropium) 2.5 mcg/inh Inhaler INH SCH (07:54)
[2020-12-28] MEDS: Insulin GLARGINE 100 un/ml 10 ml VIAL SUBCUT SCH (07:57)
[2020-12-28] MEDS: Potassium Chlor 20 meq TAB.ER PO SCH (08:07)
[2020-12-28] MEDS: Venlafaxine XR 75 mg PO SCH (08:08)
[2020-12-28] MEDS ORDERED: Polyethylene Glycol 3350 17 GM PACKET PO SCH (10:00)
[2020-12-28] MEDS ORDERED: Nicotine GUM 2MG FRUIT FLAVOR PO PRN (12:30)
[2020-12-28] MEDS ORDERED: Nicotine PATCH 14 MG/24 HR PATCH TRANSDERM SCH (17:00)
[2020-12-28] MEDS: Polyethylene Glycol 3350 17 GM PACKET PO SCH (20:25)
[2020-12-28] MEDS: Albuterol HFA INHALER 8 gm MDI INH PRN (20:36)
[2020-12-29 05:12] LABS: ABS Basophils 0.1 10^3/ul (0-0.2); ABS Eosinophils 0.2 10^3/ul (0-0.6); ABS Lymphocytes 2.9 10^3/ul (1.0-4.8); ABS Monocytes 0.7 10^3/ul (0-0.8); ABS Neutrophils 7.7 10^3/ul (1.5-7.7); Eosinophil % 1.3 %; Hematocrit 49 % (42-52); Hemoglobin 15.8 g/dL (14.0-18.0); Lymphocyte % 25.2 %; Mean Corpuscular HGB Conc 33 g/dL (31-36); Mean Corpuscular Hemoglobin 29 pg (27-31); Mean Corpuscular Volume 90 fL (80-94); Mean Platelet Volume 8.3 fL (7.4-10.4); Nucleated Red Blood Cells % 0.1; Platelet Count 211 10^3/uL (150-450); Red Blood Count 5.41 10^6 /uL (4.18-5.48); Red Cell Distribution Width 13 % (10-15); White Blood Count 11.6 10^3/uL (3.5-10.8)
[2020-12-29 05:26] LABS: Calcium 8.8 mg/dL (8.6-10.3); Magnesium 2.1 mg/dL (1.9-2.7); Potassium 4.1 mmol/L (3.5-5.0)
[2020-12-29] MEDS: SPIRIVA Respimat (tiotropium) 2.5 mcg/inh Inhaler INH SCH (07:44)
[2020-12-29] MEDS: Mometasone/Formoter 200/5 MDI INH SCH ×2 (07:44→20:28)
[2020-12-29] MEDS: Albuterol HFA INHALER 8 gm MDI INH PRN (07:44)
[2020-12-29] MEDS: Venlafaxine XR 75 mg PO SCH (08:27)
[2020-12-29] MEDS: Polyethylene Glycol 3350 17 GM PACKET PO SCH ×2 (08:27→21:06)
[2020-12-29] MEDS: Insulin GLARGINE 100 un/ml 10 ml VIAL SUBCUT SCH (08:28)
[2020-12-29] MEDS: Potassium Chlor 20 meq TAB.ER PO SCH (08:29)
[2020-12-29] MEDS: Nicotine PATCH 14 MG/24 HR PATCH TRANSDERM SCH (08:30)
[2020-12-29] MEDS ORDERED: Dextrose 50% Syringe 50 ml 25 GM/50 ML SYRINGE IV PUSH PRN (09:44)
[2020-12-29] MEDS ORDERED: Magnesium Hydroxide LIQ 30 ML UDC PO ONE (12:19)
[2020-12-30] MEDS: Potassium Chlor 20 meq TAB.ER PO SCH (08:09)
[2020-12-30] MEDS: Insulin GLARGINE 100 un/ml 10 ml VIAL SUBCUT SCH (08:11)
[2020-12-30] MEDS: Venlafaxine XR 75 mg PO SCH (08:11)
[2020-12-30] MEDS: Polyethylene Glycol 3350 17 GM PACKET PO SCH ×3 (08:16→21:03)
[2020-12-30] MEDS: Nicotine PATCH 14 MG/24 HR PATCH TRANSDERM SCH (08:16)
[2020-12-30 09:00] LABS: ABS Eosinophils 0.1 10^3/ul (0-0.6); ABS Lymphocytes 1.9 10^3/ul (1.0-4.8); ABS Monocytes 0.5 10^3/ul (0-0.8); ABS Neutrophils 6.8 10^3/ul (1.5-7.7); Eosinophil % 1.2 %; Hematocrit 46 % (42-52); Hemoglobin 15.1 g/dL (14.0-18.0); Lymphocyte % 20.5 %; Mean Corpuscular HGB Conc 33 g/dL (31-36); Mean Corpuscular Hemoglobin 30 pg (27-31); Mean Corpuscular Volume 90 fL (80-94); Platelet Count 203 10^3/uL (150-450); Red Blood Count 5.08 10^6 /uL (4.18-5.48); Red Cell Distribution Width 13 % (10-15); White Blood Count 9.4 10^3/uL (3.5-10.8)
[2020-12-30 09:16] LABS: Magnesium 2.1 mg/dL (1.9-2.7)
[2020-12-30] MEDS: Albuterol HFA INHALER 8 gm MDI INH PRN (09:30)
[2020-12-30] MEDS: Mometasone/Formoter 200/5 MDI INH SCH ×2 (09:30→20:00)
[2020-12-30] MEDS: SPIRIVA Respimat (tiotropium) 2.5 mcg/inh Inhaler INH SCH (09:31)
[2020-12-30 11:07] LABS: Calcium 8.7 mg/dL (8.6-10.3)
[2020-12-30 12:19] LABS: Potassium 4.3 mmol/L (3.5-5.0)
[2020-12-30] MEDS: Senna TAB 8.6 mg TAB PO PRN (14:01)
[2020-12-30] MEDS ORDERED: Mineral Oil ENEMA 118 ML/BOTTLE BOTTLE PR ONE (16:44)
[2020-12-30] MEDS ORDERED: Magnesium Hydroxide LIQ 30 ML UDC PO PRN (16:44)
[2020-12-30] MEDS: Lactulose 30 ml UDC PO SCH (22:38)
[2020-12-31] MEDS: Lactulose 30 ml UDC PO SCH ×4 (05:38→23:25)
[2020-12-31] MEDS: SPIRIVA Respimat (tiotropium) 2.5 mcg/inh Inhaler INH SCH (07:45)
[2020-12-31] MEDS: Mometasone/Formoter 200/5 MDI INH SCH ×2 (07:45→21:20)
[2020-12-31] MEDS: Polyethylene Glycol 3350 17 GM PACKET PO SCH ×3 (09:05→21:45)
[2020-12-31] MEDS: Nicotine PATCH 14 MG/24 HR PATCH TRANSDERM SCH (09:05)
[2020-12-31] MEDS: Venlafaxine XR 75 mg PO SCH (09:06)
[2020-12-31] MEDS: Potassium Chlor 20 meq TAB.ER PO SCH (09:07)
[2020-12-31] MEDS: Insulin GLARGINE 100 un/ml 10 ml VIAL SUBCUT SCH (09:09)
[2020-12-31 15:04] LABS: ABS Lymphocytes 0.5 10^3/ul (1.0-4.8); ABS Monocytes 0.3 10^3/ul (0-0.8); Eosinophil % 0.2 %; Hematocrit 45 % (42-52); Hemoglobin 15.1 g/dL (14.0-18.0); Lymphocyte % 6.8 %; Mean Corpuscular HGB Conc 33 g/dL (31-36); Mean Corpuscular Hemoglobin 30 pg (27-31); Mean Corpuscular Volume 89 fL (80-94); Mean Platelet Volume 7.8 fL (7.4-10.4); Nucleated Red Blood Cells % 0.1; Platelet Count 190 10^3/uL (150-450); Red Blood Count 5.11 10^6 /uL (4.18-5.48); Red Cell Distribution Width 13 % (10-15); White Blood Count 7.9 10^3/uL (3.5-10.8)
[2020-12-31] MEDS ORDERED: TPN 24 HR with D10W 1000 ml BAG 1,000 ML, Amino Acid Infusion 10% 850 ML, Sterile Water... IV SCH (17:00)
[2020-12-31 17:14] LABS: Calcium 9.1 mg/dL (8.6-10.3); Magnesium 2.1 mg/dL (1.9-2.7); Potassium 4.6 mmol/L (3.5-5.0)
[2020-12-31] MEDS: Albuterol HFA INHALER 8 gm MDI INH PRN (21:19)
[2021-01-01 05:22] LABS: ABS Eosinophils 0.1 10^3/ul (0-0.6); ABS Lymphocytes 1.8 10^3/ul (1.0-4.8); ABS Monocytes 0.7 10^3/ul (0-0.8); ABS Neutrophils 4.5 10^3/ul (1.5-7.7); Eosinophil % 1.3 %; Hematocrit 45 % (42-52); Hemoglobin 14.7 g/dL (14.0-18.0); Lymphocyte % 25.7 %; Mean Corpuscular HGB Conc 33 g/dL (31-36); Mean Corpuscular Hemoglobin 29 pg (27-31); Mean Corpuscular Volume 90 fL (80-94); Platelet Count 185 10^3/uL (150-450); Red Blood Count 5.01 10^6 /uL (4.18-5.48); Red Cell Distribution Width 13 % (10-15); White Blood Count 7.1 10^3/uL (3.5-10.8)
[2021-01-01 05:48] LABS: Calcium 8.7 mg/dL (8.6-10.3); Magnesium 2.2 mg/dL (1.9-2.7); Potassium 3.9 mmol/L (3.5-5.0)
[2021-01-01] MEDS ORDERED: Potassium Chlor 20 meq TAB.ER PO ONE (06:02)
[2021-01-01] MEDS: Lactulose 30 ml UDC PO SCH ×3 (06:46→11:17)
[2021-01-01] MEDS: Polyethylene Glycol 3350 17 GM PACKET PO SCH ×4 (07:41→20:46)
[2021-01-01] MEDS: Venlafaxine XR 75 mg PO SCH (07:41)
[2021-01-01] MEDS: Potassium Chlor 20 meq TAB.ER PO SCH (07:42)
[2021-01-01] MEDS: Nicotine PATCH 14 MG/24 HR PATCH TRANSDERM SCH (07:45)
[2021-01-01] MEDS: Albuterol HFA INHALER 8 gm MDI INH PRN ×2 (07:50→20:25)
[2021-01-01] MEDS: Mometasone/Formoter 200/5 MDI INH SCH ×2 (07:50→20:25)
[2021-01-01] MEDS: SPIRIVA Respimat (tiotropium) 2.5 mcg/inh Inhaler INH SCH (07:50)
[2021-01-01] MEDS: Insulin GLARGINE 100 un/ml 10 ml VIAL SUBCUT SCH (09:33)
[2021-01-01] MEDS ORDERED: Nicotine GUM 2MG FRUIT FLAVOR PO PRN (10:39)
[2021-01-01] MEDS ORDERED: Nicotine Lozenge mini 2 MG LOZNG.MINI MT PRN (10:39)
[2021-01-02 05:49] LABS: Calcium 8.5 mg/dL (8.6-10.3); Potassium 4.3 mmol/L (3.5-5.0)
[2021-01-02] MEDS: Venlafaxine XR 75 mg PO SCH (07:57)
[2021-01-02] MEDS: Polyethylene Glycol 3350 17 GM PACKET PO SCH ×3 (07:57→22:16)
[2021-01-02] MEDS: Potassium Chlor 20 meq TAB.ER PO SCH (07:58)
[2021-01-02] MEDS: Albuterol HFA INHALER 8 gm MDI INH PRN (07:58)
[2021-01-02] MEDS: SPIRIVA Respimat (tiotropium) 2.5 mcg/inh Inhaler INH SCH (07:58)
[2021-01-02] MEDS: Mometasone/Formoter 200/5 MDI INH SCH ×2 (07:58→20:59)
[2021-01-02] MEDS: Insulin GLARGINE 100 un/ml 10 ml VIAL SUBCUT SCH (07:59)
[2021-01-02] MEDS: Nicotine PATCH 14 MG/24 HR PATCH TRANSDERM SCH (08:03)
[2021-01-02] MEDS: Senna TAB 8.6 mg TAB PO PRN (10:33)
[2021-01-02] MEDS ORDERED: Albuterol/Ipratropium NEB.SOL (2.5/0.5 MG) 3 ML NEB.SOLN INH PRN (20:03)
[2021-01-02 20:47] LABS: Potassium 4.5 mmol/L (3.5-5.0)
[2021-01-02] MEDS ORDERED: Furosemide 20 mg/2 ml IV VIAL IV SLOW PU ONE (21:28)
[2021-01-02 22:18] LABS: PCO2 Arterial 59 mmHg (35-45); PO2 Arterial 81 mmHg (80-100)
[2021-01-03 07:05] LABS: Calcium 8.7 mg/dL (8.6-10.3)
[2021-01-03] MEDS: SPIRIVA Respimat (tiotropium) 2.5 mcg/inh Inhaler INH SCH (08:07)
[2021-01-03] MEDS: Mometasone/Formoter 200/5 MDI INH SCH ×2 (08:07→19:29)
[2021-01-03] MEDS: Potassium Chlor 20 meq TAB.ER PO SCH (08:52)
[2021-01-03] MEDS: Venlafaxine XR 75 mg PO SCH (08:52)
[2021-01-03] MEDS: Insulin GLARGINE 100 un/ml 10 ml VIAL SUBCUT SCH (08:54)
[2021-01-03] MEDS: Nicotine PATCH 14 MG/24 HR PATCH TRANSDERM SCH (09:10)
[2021-01-03] MEDS: Polyethylene Glycol 3350 17 GM PACKET PO SCH ×3 (09:10→22:35)
[2021-01-04] MEDS: SPIRIVA Respimat (tiotropium) 2.5 mcg/inh Inhaler INH SCH (08:02)
[2021-01-04] MEDS: Mometasone/Formoter 200/5 MDI INH SCH (08:02)
[2021-01-04 08:48] VITALS: BP 104/64
[2021-01-04] MEDS: Insulin GLARGINE 100 un/ml 10 ml VIAL SUBCUT SCH (08:49)
[2021-01-04] MEDS: Potassium Chlor 20 meq TAB.ER PO SCH (08:50)
[2021-01-04] MEDS: Venlafaxine XR 75 mg PO SCH (08:51)
[2021-01-04] MEDS: Nicotine PATCH 14 MG/24 HR PATCH TRANSDERM SCH (08:51)
[2021-01-04] MEDS: Polyethylene Glycol 3350 17 GM PACKET PO SCH (08:52)
== END 2021-01-04 11:48 | disposition swing bed (61) | DRG 140 ==
LOC: ED 15:18 → MED 20:59 → SUATTDRO 20:59 → MED 22:09 → ICU 12-24 03:44 → MED 12-26 11:39
PROVIDERS: ADMIT Internal Medicine; ATTEND Internal Medicine

== ENCOUNTER 2021-01-04 12:48 | Inpatient (IN) ==
[2021-01-04] MEDS ORDERED: Al Hydrox/Mg Hydrox/Simet LIQ 30 ML UDC PO PRN (14:39)
[2021-01-04] MEDS ORDERED: Albuterol/Ipratropium NEB.SOL (2.5/0.5 MG) 3 ML NEB.SOLN INH PRN (14:41)
[2021-01-04] MEDS ORDERED: Magnesium Hydroxide LIQ 30 ML UDC PO PRN (15:49)
[2021-01-04] MEDS ORDERED: Dextrose 50% Syringe 50 ml 25 GM/50 ML SYRINGE IV PUSH PRN (16:25)
[2021-01-04] MEDS ORDERED: Nicotine GUM 2MG FRUIT FLAVOR PO PRN (16:26)
[2021-01-04] MEDS ORDERED: Nicotine Lozenge mini 4 MG LOZNG.MINI MT PRN (16:26)
[2021-01-04] MEDS ORDERED: Ondansetron 4 mg VIAL 2 MG/ML 2 ml VIAL IV PRN (16:27)
[2021-01-04] MEDS ORDERED: Senna TAB 8.6 mg TAB PO PRN (16:28)
[2021-01-04] MEDS ORDERED: Polyethylene Glycol 3350 17 GM PACKET PO PRN (16:37)
[2021-01-04] MEDS: Mometasone/Formoter 200/5 MDI INH SCH (19:43)
[2021-01-04] MEDS ORDERED: oxyCODONE SR 10 mg TAB PO SCH (22:00)
[2021-01-05] MEDS: Mometasone/Formoter 200/5 MDI INH SCH ×2 (07:42→19:40)
[2021-01-05] MEDS: SPIRIVA Respimat (tiotropium) 2.5 mcg/inh Inhaler INH SCH (07:42)
[2021-01-05] MEDS: Nicotine PATCH 21 MG/24 HR PATCH TRANSDERM SCH (08:54)
[2021-01-05] MEDS: Potassium Chlor 20 meq TAB.ER PO SCH (08:55)
[2021-01-05] MEDS: Insulin GLARGINE 100 un/ml 10 ml VIAL SUBCUT SCH (08:56)
[2021-01-05] MEDS: Venlafaxine XR 75 mg PO SCH (12:12)
[2021-01-06] MEDS: SPIRIVA Respimat (tiotropium) 2.5 mcg/inh Inhaler INH SCH (08:23)
[2021-01-06] MEDS: Mometasone/Formoter 200/5 MDI INH SCH ×2 (08:23→19:59)
[2021-01-06] MEDS: Potassium Chlor 20 meq TAB.ER PO SCH (08:25)
[2021-01-06] MEDS: Nicotine PATCH 21 MG/24 HR PATCH TRANSDERM SCH (08:25)
[2021-01-06] MEDS: Insulin GLARGINE 100 un/ml 10 ml VIAL SUBCUT SCH (08:26)
[2021-01-06] MEDS: Venlafaxine XR 75 mg PO SCH (08:26)
[2021-01-07] MEDS: SPIRIVA Respimat (tiotropium) 2.5 mcg/inh Inhaler INH SCH (08:30)
[2021-01-07] MEDS: Mometasone/Formoter 200/5 MDI INH SCH ×2 (08:31→20:55)
[2021-01-07] MEDS: Insulin GLARGINE 100 un/ml 10 ml VIAL SUBCUT SCH (08:51)
[2021-01-07] MEDS: Nicotine PATCH 21 MG/24 HR PATCH TRANSDERM SCH (08:52)
[2021-01-07] MEDS: Venlafaxine XR 75 mg PO SCH (08:55)
[2021-01-07] MEDS: Potassium Chlor 20 meq TAB.ER PO SCH (08:57)
[2021-01-08] MEDS: SPIRIVA Respimat (tiotropium) 2.5 mcg/inh Inhaler INH SCH (08:19)
[2021-01-08] MEDS: Mometasone/Formoter 200/5 MDI INH SCH ×2 (08:19→20:55)
[2021-01-08] MEDS: Nicotine PATCH 21 MG/24 HR PATCH TRANSDERM SCH (08:49)
[2021-01-08] MEDS: Venlafaxine XR 75 mg PO SCH (08:50)
[2021-01-08] MEDS: Insulin GLARGINE 100 un/ml 10 ml VIAL SUBCUT SCH (08:54)
[2021-01-08] MEDS: Potassium Chlor 20 meq TAB.ER PO SCH (08:54)
[2021-01-09] MEDS: Mometasone/Formoter 200/5 MDI INH SCH ×2 (08:30→20:24)
[2021-01-09] MEDS: SPIRIVA Respimat (tiotropium) 2.5 mcg/inh Inhaler INH SCH (08:30)
[2021-01-09] MEDS: Venlafaxine XR 75 mg PO SCH (09:13)
[2021-01-09] MEDS: Potassium Chlor 20 meq TAB.ER PO SCH (09:14)
[2021-01-09] MEDS: Insulin GLARGINE 100 un/ml 10 ml VIAL SUBCUT SCH (09:15)
[2021-01-09] MEDS: Nicotine PATCH 21 MG/24 HR PATCH TRANSDERM SCH (09:19)
[2021-01-10] MEDS: Mometasone/Formoter 200/5 MDI INH SCH ×2 (08:27→19:44)
[2021-01-10] MEDS: SPIRIVA Respimat (tiotropium) 2.5 mcg/inh Inhaler INH SCH (08:28)
[2021-01-10] MEDS: Nicotine PATCH 21 MG/24 HR PATCH TRANSDERM SCH (10:33)
[2021-01-10] MEDS: Venlafaxine XR 75 mg PO SCH ×2 (12:02→13:27)
[2021-01-10] MEDS: Potassium Chlor 20 meq TAB.ER PO SCH ×2 (12:02→13:26)
[2021-01-10] MEDS: Insulin GLARGINE 100 un/ml 10 ml VIAL SUBCUT SCH (12:02)
[2021-01-11] MEDS: Venlafaxine XR 75 mg PO SCH (08:40)
[2021-01-11] MEDS: Potassium Chlor 20 meq TAB.ER PO SCH (08:40)
[2021-01-11] MEDS: Insulin GLARGINE 100 un/ml 10 ml VIAL SUBCUT SCH (08:40)
[2021-01-11] MEDS: Nicotine PATCH 21 MG/24 HR PATCH TRANSDERM SCH (08:43)
[2021-01-11] MEDS: SPIRIVA Respimat (tiotropium) 2.5 mcg/inh Inhaler INH SCH (08:57)
[2021-01-11] MEDS: Albuterol HFA INHALER 8 gm MDI INH PRN (08:57)
[2021-01-11] MEDS: Mometasone/Formoter 200/5 MDI INH SCH ×2 (08:58→20:10)
[2021-01-12] MEDS: SPIRIVA Respimat (tiotropium) 2.5 mcg/inh Inhaler INH SCH (07:46)
[2021-01-12] MEDS: Mometasone/Formoter 200/5 MDI INH SCH ×2 (07:46→20:23)
[2021-01-12] MEDS: Venlafaxine XR 75 mg PO SCH (08:28)
[2021-01-12] MEDS: Potassium Chlor 20 meq TAB.ER PO SCH (08:28)
[2021-01-12] MEDS: Insulin GLARGINE 100 un/ml 10 ml VIAL SUBCUT SCH (08:31)
[2021-01-12] MEDS: Nicotine PATCH 21 MG/24 HR PATCH TRANSDERM SCH (08:31)
[2021-01-13] MEDS: SPIRIVA Respimat (tiotropium) 2.5 mcg/inh Inhaler INH SCH (07:41)
[2021-01-13] MEDS: Mometasone/Formoter 200/5 MDI INH SCH ×2 (07:41→20:32)
[2021-01-13] MEDS: Potassium Chlor 20 meq TAB.ER PO SCH (07:43)
[2021-01-13] MEDS: Venlafaxine XR 75 mg PO SCH (07:44)
[2021-01-13] MEDS: Nicotine PATCH 21 MG/24 HR PATCH TRANSDERM SCH (07:50)
[2021-01-13] MEDS: Insulin GLARGINE 100 un/ml 10 ml VIAL SUBCUT SCH (08:41)
[2021-01-13] MEDS: Albuterol HFA INHALER 8 gm MDI INH PRN ×2 (13:13→20:32)
[2021-01-14] MEDS: Mometasone/Formoter 200/5 MDI INH SCH ×2 (08:13→19:34)
[2021-01-14] MEDS: SPIRIVA Respimat (tiotropium) 2.5 mcg/inh Inhaler INH SCH (08:13)
[2021-01-14] MEDS: Albuterol HFA INHALER 8 gm MDI INH PRN (08:13)
[2021-01-14] MEDS: Venlafaxine XR 75 mg PO SCH (08:31)
[2021-01-14] MEDS: Potassium Chlor 20 meq TAB.ER PO SCH (08:33)
[2021-01-14] MEDS: Insulin GLARGINE 100 un/ml 10 ml VIAL SUBCUT SCH (08:34)
[2021-01-14] MEDS: Nicotine PATCH 21 MG/24 HR PATCH TRANSDERM SCH (08:35)
[2021-01-15] MEDS: Nicotine PATCH 21 MG/24 HR PATCH TRANSDERM SCH (09:40)
[2021-01-15] MEDS: Insulin GLARGINE 100 un/ml 10 ml VIAL SUBCUT SCH (09:40)
[2021-01-15] MEDS: Potassium Chlor 20 meq TAB.ER PO SCH (09:43)
[2021-01-15] MEDS: Venlafaxine XR 75 mg PO SCH (09:43)
[2021-01-15] MEDS: Mometasone/Formoter 200/5 MDI INH SCH ×2 (10:10→21:49)
[2021-01-15] MEDS: SPIRIVA Respimat (tiotropium) 2.5 mcg/inh Inhaler INH SCH (10:10)
[2021-01-15] MEDS ORDERED: Dextran 70/Hypromellose Tears Eye Drops 15 ml BTL (for Artificials Tears) BOTH EYES PRN (13:06)
[2021-01-16] MEDS: Mometasone/Formoter 200/5 MDI INH SCH ×2 (07:45→19:51)
[2021-01-16] MEDS: SPIRIVA Respimat (tiotropium) 2.5 mcg/inh Inhaler INH SCH (07:45)
[2021-01-16] MEDS: Potassium Chlor 20 meq TAB.ER PO SCH (08:24)
[2021-01-16] MEDS: Venlafaxine XR 75 mg PO SCH (08:25)
[2021-01-16] MEDS: Insulin GLARGINE 100 un/ml 10 ml VIAL SUBCUT SCH (08:26)
[2021-01-16] MEDS: Nicotine PATCH 21 MG/24 HR PATCH TRANSDERM SCH (08:48)
[2021-01-17] MEDS: Insulin GLARGINE 100 un/ml 10 ml VIAL SUBCUT SCH (08:02)
[2021-01-17] MEDS: Venlafaxine XR 75 mg PO SCH (08:03)
[2021-01-17] MEDS: Potassium Chlor 20 meq TAB.ER PO SCH (08:04)
[2021-01-17] MEDS: Nicotine PATCH 21 MG/24 HR PATCH TRANSDERM SCH (08:06)
[2021-01-17] MEDS: Mometasone/Formoter 200/5 MDI INH SCH ×2 (08:08→20:46)
[2021-01-17] MEDS: SPIRIVA Respimat (tiotropium) 2.5 mcg/inh Inhaler INH SCH (08:08)
[2021-01-18] MEDS: SPIRIVA Respimat (tiotropium) 2.5 mcg/inh Inhaler INH SCH (07:56)
[2021-01-18] MEDS: Mometasone/Formoter 200/5 MDI INH SCH ×2 (07:56→18:35)
[2021-01-18] MEDS: Insulin GLARGINE 100 un/ml 10 ml VIAL SUBCUT SCH (08:25)
[2021-01-18] MEDS: Venlafaxine XR 75 mg PO SCH (08:26)
[2021-01-18] MEDS: Potassium Chlor 20 meq TAB.ER PO SCH (08:27)
[2021-01-18] MEDS: Nicotine PATCH 21 MG/24 HR PATCH TRANSDERM SCH (08:27)
[2021-01-19] MEDS: Potassium Chlor 20 meq TAB.ER PO SCH (07:33)
[2021-01-19] MEDS: Nicotine PATCH 21 MG/24 HR PATCH TRANSDERM SCH (07:34)
[2021-01-19] MEDS: Venlafaxine XR 75 mg PO SCH (07:34)
[2021-01-19] MEDS: Mometasone/Formoter 200/5 MDI INH SCH ×2 (07:58→20:31)
[2021-01-19] MEDS: SPIRIVA Respimat (tiotropium) 2.5 mcg/inh Inhaler INH SCH (07:58)
[2021-01-19] MEDS: Insulin GLARGINE 100 un/ml 10 ml VIAL SUBCUT SCH (08:22)
[2021-01-20] MEDS: SPIRIVA Respimat (tiotropium) 2.5 mcg/inh Inhaler INH SCH (08:03)
[2021-01-20] MEDS: Mometasone/Formoter 200/5 MDI INH SCH ×2 (08:03→20:50)
[2021-01-20] MEDS: Venlafaxine XR 75 mg PO SCH (09:25)
[2021-01-20] MEDS: Potassium Chlor 20 meq TAB.ER PO SCH (09:26)
[2021-01-20] MEDS: Nicotine PATCH 21 MG/24 HR PATCH TRANSDERM SCH (09:28)
[2021-01-20] MEDS: Insulin GLARGINE 100 un/ml 10 ml VIAL SUBCUT SCH (09:28)
[2021-01-21] MEDS: Mometasone/Formoter 200/5 MDI INH SCH ×2 (08:11→21:10)
[2021-01-21] MEDS: SPIRIVA Respimat (tiotropium) 2.5 mcg/inh Inhaler INH SCH (08:11)
[2021-01-21] MEDS: Insulin GLARGINE 100 un/ml 10 ml VIAL SUBCUT SCH (09:20)
[2021-01-21] MEDS: Nicotine PATCH 21 MG/24 HR PATCH TRANSDERM SCH (09:21)
[2021-01-21] MEDS: Venlafaxine XR 75 mg PO SCH (09:21)
[2021-01-21] MEDS: Potassium Chlor 20 meq TAB.ER PO SCH (09:21)
[2021-01-22] MEDS: Potassium Chlor 20 meq TAB.ER PO SCH (07:33)
[2021-01-22] MEDS: Venlafaxine XR 75 mg PO SCH (07:34)
[2021-01-22] MEDS: Nicotine PATCH 21 MG/24 HR PATCH TRANSDERM SCH (08:25)
[2021-01-22] MEDS: Insulin GLARGINE 100 un/ml 10 ml VIAL SUBCUT SCH (08:25)
[2021-01-22] MEDS: SPIRIVA Respimat (tiotropium) 2.5 mcg/inh Inhaler INH SCH (08:38)
[2021-01-22] MEDS: Mometasone/Formoter 200/5 MDI INH SCH ×2 (08:40→22:02)
[2021-01-23] MEDS: Potassium Chlor 20 meq TAB.ER PO SCH (09:23)
[2021-01-23] MEDS: Venlafaxine XR 75 mg PO SCH (09:25)
[2021-01-23] MEDS: Insulin GLARGINE 100 un/ml 10 ml VIAL SUBCUT SCH (09:28)
[2021-01-23] MEDS: Nicotine PATCH 21 MG/24 HR PATCH TRANSDERM SCH (09:31)
[2021-01-23] MEDS: SPIRIVA Respimat (tiotropium) 2.5 mcg/inh Inhaler INH SCH (09:48)
[2021-01-23] MEDS: Mometasone/Formoter 200/5 MDI INH SCH (09:48)
[2021-01-23 10:55] VITALS: BP 122/61
== END 2021-01-23 11:00 | disposition left against medical advice (07) | DRG 140 ==
LOC: SUATTDRO 12:48 → MED 12:48
PROVIDERS: ADMIT Internal Medicine; ATTEND Internal Medicine